=== PATIENT | male | born 1940 | race Caucasian/White ===

== ENCOUNTER 2020-05-04 10:05 | Inpatient (IN) | payer MEDICARE, MEDICAID, SELFPAY ==
--- NOTE | 2020-05-04 10:10 | XR_ITS ---
EXAMINATION: XR CHEST CLINICAL INFORMATION: Chest pain COMPARISON: Previous chest x-ray October 2017 TECHNIQUE: Frontal view of the chest was obtained. FINDINGS: The cardiac and mediastinal contours are normal. The lungs are clear. There is no pleural effusion or pneumothorax. There are degenerative changes of the spine. XR/XR chest 1V IMPRESSION: No evidence for acute disease in the chest.
--- NOTE | 2020-05-04 10:10 | ECG_ITS ---
Test Reason : STROKE Blood Pressure : / mmHG Vent. Rate : 069 BPM Atrial Rate : 069 BPM P-R Int : 214 ms QRS Dur : 122 ms QT Int : 422 ms P-R-T Axes : 074 -70 064 degrees QTc Int : 452 ms Sinus rhythm with 1st degree A-V block Right bundle branch block Left anterior fascicular block Bifascicular block Abnormal ECG When compared with ECG of 16-MAR-2018 00:14, Left anterior fascicular block is now Present Referred By: Camila Rowland Electronically Signed By:SARAVANAN VALENTE MD
--- NOTE | 2020-05-04 10:10 | CT_ITS ---
EXAMINATION: CT HEAD WITHOUT CONTRAST (STROKE PROTOCOL) CLINICAL INFORMATION: Stroke protocol. Short like symptoms. No deficit. COMPARISON: CT brain 06/28/2019 TECHNIQUE: Contiguous axial imaging was performed from the skull base to vertex without intravenous administration of contrast. This CT examination was performed using dose optimization techniques as appropriate, variously including the following: *Automated exposure control *Adjustment of mA and/or kV according to patient size (this includes techniques or standardized protocols for targeted exams where dose is matched to indication/reason for exam; i.e. extremities or head) *Use of iterative reconstruction technique DLP: 639 mGy-cm FINDINGS: There is no intracranial hemorrhage, hematoma, or extra-axial fluid collection. The lateral ventricles are enlarged with mild prominence of cortical sulci. There is no hydrocephalus, edema, or mass effect. The langley-white matter differentiation appears symmetric. There is no acute infarct or mass lesion. There or chronic lacunar infarcts in the right thalamus and right external capsule. There is extensive hypodensity in subcortical white matter of both cerebral hemispheres without mass effect. The calvarium appears intact. There is a small 5 mm sclerotic lesion along the left lateral orbit on axial image 15, stable since 06/28/2019, question bone island no additional lesions seen. There is no scalp soft tissue abnormality. There is no pneumocephalus or orbital emphysema. The visualized sinuses and middle ears and mastoid air cells show no significant mucosal thickening. There are no air-fluid levels. CT/CT head for stroke IMPRESSION: No acute intracranial process seen. 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 Mild cerebral volume loss with extensive chronic small vessel ischemic changes. This critical result was discussed with Dr. Rowland at 10:23 AM by phone in the ER. It was ascertained that the content and urgency of the report was understood at the time of direct communication.
--- NOTE | 2020-05-04 10:14 | ED_ITS ---
HPI - Neuro Symptoms/Deficit General Chief Complaint: Altered Mental Status Stated Complaint: ?stroke Time Seen by Provider: 05/04/20 10:10 History of Present Illness HPI Narrative: Patient is a 79-year-old male presented today family noted sudden onset of left-sided weakness at about 930 in the morning. [place] the speech was slurred. [place] that he had a difficulty walking. The weakness is mainly over the left side. On MSIR arrival patient's weakness has resolved. Speech has improved tremendously. Per family patient has slurred speech is essentially resolved. No history of the same before. No coughing or congestion or upper respiratory symptoms no diaphoresis. No chest pain. Patient is from home. Related Data Allergies Allergy/AdvReac Type Severity Reaction Status Date / Time No Known Allergies Allergy Unverified 02/23/20 15:07 Review of Systems Review of Systems: Constitutional: No Weight loss, No Fever, No Chills, No Night Sweats, No Fatigue, No Malaise ENT/Mouth: No Hearing loss, No Ear Pain, No Nasal Congestion, No Sinus Pain, No Hoarseness, No sore throat, No Rhinorrhea, No Swallowing Difficulty Eyes: No Eye Pain, No Swelling, No Redness, No Foreign Body, No Discharge, No Vision Changes Cardiovascular: No Chest Pain, No SOB, No Dyspnea on Exertion, No Orthopnea, No Edema, No Palpitations Respiratory: No Cough, No Sputum, No Wheezing, No Smoke Exposure, No Dyspnea Gastrointestinal: No Nausea, No Vomiting, No Diarrhea, No Constipation, No abdominal Pain, No Hematochezia, No Melena Genitourinary: no irregular bleeding, No Dysuria, No Urinary Frequency, No Hematuria, No Urinary Incontinence, No Urgency, No Flank Pain, No Urinary Flow Changes, No Hesitancy Musculoskeletal: No joint pain, No Myalgias, No Joint Swelling Skin: No Skin Lesions, No rash Neuro: Positive left-sided weakness, No Numbness, No Paresthesias, No Loss of Consciousness, No Dizziness, No Headache Psych: No Anxiety/Panic, No Depression, No SI/HI/AH/VH, No Social Issues, Heme/Lymph: No Bruising, No Bleeding,No Lymphadenopathy Endocrine: No Polyuria, No Polydipsia, No Temperature Intolerance [facility] Social History Social History Advance Directives: No Advance Directives Information Provided: Yes Physical Exam Vital Signs: Vital Signs: Last Vital Signs Temp 98.2 F 05/04/20 10:22 Pulse 67 05/04/20 10:22 Resp 14 05/04/20 10:22 Pulse Ox 98 05/04/20 10:22 Body Mass Index 22.8 Appearance: Alert. Oriented X3. No acute distress. Eyes: Pupils equal, round and reactive to light. ENT: Pharynx normal. Neck: Normal inspection. Neck supple. No lymph nodes noted. No crepitus CVS: Normal heart rate and rhythm. Pulses normal. Normal S1 and S2 Respiratory: No respiratory distress. Breath sounds normal. No Wheezing. No rales Abdomen: Soft and nontender. No rigidity. No distention. good BS x4 Skin: Skin warm and dry. Normal skin color. Normal skin turgor. Extremities: No lower extremity edema. Neurovascular intact to all extremities. No Lacerations. No Rash Neuro: Oriented X 3. No motor deficit. No sensory deficit. Moving all extermities. No slurred speech MDM - Neuro Symptoms/Deficit MDM Narrative Medical decision making narrative: CT the head was grossly negative. Electr olytes unremarkable. Patient's symptoms basically resolved. On repeat exam patient's NIH stroke scale remained at 0. Will admit for further evaluation of the left-sided weakness and potential change in speech question TIA. Patient's sugar was normal no evidence for hypoglycemia. Currently in stable condition awaiting admission. Case discussed with hospitalist team Medical Records Attestation: I reviewed the patient's medical records. Lab Data Attestation: I reviewed the patient's lab results. Result diagrams: 05/04/20 10:31 05/04/20 10:31 Labs: Lab Results 05/04/20 05/04/20 05/04/20 Range/Units 10:18 10:26 10:31 WBC 6.4 (4.8-10.8) X10*3/uL RBC 3.93 L (4.60-5.80) X10*6/uL Hgb 12.2 L (14.0-18.0) g/dl Hct 37.1 L (42-52) % MCV 94.4 (80-98) fL MCH 31.0 (27.0-33.0) pg MCHC 32.9 (31.0-36.0) g/dl RDW 12.1 (11.0-16.0) % Plt Count 179 (160-400) X10*3/uL MPV 10.2 (9.4-12.4) fL Immature Gran % (Auto) 0.2 (0.0-0.4) % Neut % (Auto) 56.2 (45-73) % Lymph % (Auto) 21.9 (20-40) % [place] % (Auto) 7.6 (2-11) % Eos % (Auto) 13.5 H (0-4) % Baso % (Auto) 0.6 (0-2) % Lymph # (Auto) 1.4 (1.2-4.9) X10*3/uL [place] # (Auto) 0.5 (0.1-1.2) X10*3/uL Eos # (Auto) 0.9 H (0.0-0.4) X10*3/uL Baso # (Auto) 0.0 (0.0-0.2) X10*3/uL Abs Immat Gran (auto) 0.01 (0.00-0.03) X10*3/uL Absolute Neuts (auto) 3.6 (2.0-8.3) X10*3/uL Absolute Nucleated RBC 0.000 (0.0-0.012) X10*3/uL Nucleated RBC % (auto) 0.0 (0.0-0.2) /100WBC PT (10.8-13.0) SEC Whole Blood PT 11.6 (11.1-13.5) sec INR (0.9-1.1) Whole Blood INR 1.0 (0.9-1.1) APTT (24.1-38.0) SEC Sodium (135-145) mmol/L Potassium (3.3-5.1) mmol/l Chloride (96-108) mmol/L Carbon Dioxide (22-29) mmol/L Anion Gap (12-20) BUN (9-16) mg/dL Creatinine (0.5-1.4) mg/dL Estim Creat Clear Calc Estimated GFR POC Glucose 207 H (60-115) mg/dL Random Glucose (60-115) mg/dL Calcium (8.4-10.2) mg/dL Total Creatine Kinase (38-174) U/L Troponin I High Sens (<3.5-35.0) ng/L 05/04/20 05/04/20 05/04/20 Range/Units 10:31 10:31 10:31 WBC (4.8-10.8) X10*3/uL RBC (4.60-5.80) X10*6/uL Hgb (14.0-18.0) g/dl Hct (42-52) % MCV (80-98) fL MCH (27.0-33.0) pg MCHC (31.0-36.0) g/dl RDW (11.0-16.0) % Plt Count (160-400) X10*3/uL MPV (9.4-12.4) fL Immature Gran % (Auto) (0.0-0.4) % Neut % (Auto) (45-73) % Lymph % (Auto) (20-40) % [place] % (Auto) (2-11) % Eos % (Auto) (0-4) % Baso % (Auto) (0-2) % Lymph # (Auto) (1.2-4.9) X10*3/uL [place] # (Auto) (0.1-1.2) X10*3/uL Eos # (Auto) (0.0-0.4) X10*3/uL Baso # (Auto) (0.0-0.2) X10*3/uL Abs Immat Gran (auto) (0.00-0.03) X10*3/uL Absolute Neuts (auto) (2.0-8.3) X10*3/uL Absolute Nucleated RBC (0.0-0.012) X10*3/uL Nucleated RBC % (auto) (0.0-0.2) /100WBC PT 13.6 H (10.8-13.0) SEC Whole Blood PT (11.1-13.5) sec INR 1.1 (0.9-1.1) Whole Blood INR (0.9-1.1) APTT 30.5 (24.1-38.0) SEC Sodium 140 (135-145) mmol/L Potassium 4.7 (3.3-5.1) mmol/l Chloride 104 (96-108) mmol/L Carbon Dioxide 26 (22-29) mmol/L Anion Gap 15 (12-20) BUN 27 H (9-16) mg/dL Creatinine 1.01 (0.5-1.4) mg/dL Estim Creat Clear Calc 53.5 Estimated GFR > 60 POC Glucose (60-115) mg/dL Random Glucose 228 H (60-115) mg/dL Calcium 8.7 (8.4-10.2) mg/dL Total Creatine Kinase 37 L (38-174) U/L Troponin I High Sens 5.5 (<3.5-35.0) ng/L ECG Data Interpretation: Sinus heart rate is 70 with a right bundle branch block that is old. There is no significant ST segment elevation noted. NIH Stroke Scale Internal: Initial- Upon Arrival Time: 10:17 Level of Consciousness: Alert Level of Consciousness Questions: Answers both questions correctly Level of Consciousness Commands: Performs both tasks correctly Best Gaze: Normal Visual: No visual loss Facial Palsy: Normal Motor Arm (Right): No drift Motor Arm (Left): No drift Motor Leg (Right): No drift Motor Leg (Left): No drift Limb Ataxia: Absent Sensory: Normal Best Language: No aphasia Dysarthia: Normal Extinction and Inattention: No abnormality Score: 0 Discharge Plan Discharge Clinical Impression: Brain TIA Patient Disposition: Admitted As Inpatient
[2020-05-04 10:22] VITALS: BP 172/78; PULSE 67; PULSE 72; RESP 14; TEMP 36.8; O2SAT 98; BMI 22.8
[2020-05-04 10:30] LABS: Prothrombin Time Whole Bld POC 11.6 sec (11.1-13.5)
[2020-05-04 10:35] LABS: Glucose, Whole Blood 207 mg/dL (60-115)
[2020-05-04 10:38] LABS: MANUAL DIFF FLAG NO
[2020-05-04 10:39] LABS: Basophils Percent Auto 0.6 % (0-2); Eosinophils Absolute Auto 0.9 X10*3/uL (0.0-0.4); Eosinophils Percent Auto 13.5 % (0-4); Hematocrit 37.1 % (42-52); Hemoglobin 12.2 g/dl (14.0-18.0); Imm Gran Abs Auto 0.01 X10*3/uL (0.00-0.03); Imm Gran Pct Auto 0.2 % (0.0-0.4); Lymphocytes Absolute Auto 1.4 X10*3/uL (1.2-4.9); Lymphocytes Percent Auto 21.9 % (20-40); Mean Corpuscular HGB Conc 32.9 g/dl (31.0-36.0); Mean Corpuscular Volume 94.4 fL (80-98); Mean Platelet Volume 10.2 fL (9.4-12.4); Monocytes Absolute Auto 0.5 X10*3/uL (0.1-1.2); Monocytes Percent Auto 7.6 % (2-11); Neutrophils Absolute Auto 3.6 X10*3/uL (2.0-8.3); Neutrophils Percent Auto 56.2 % (45-73); Platelet Count 179 X10*3/uL (160-400); Red Blood Count 3.93 X10*6/uL (4.60-5.80); Red Cell Distribution Width 12.1 % (11.0-16.0); White Blood Count 6.4 X10*3/uL (4.8-10.8)
[2020-05-04 10:46] LABS: INTERNATIONAL NORM RATIO 1.1 (0.9-1.1); Prothrombin Time 13.6 SEC (10.8-13.0)
[2020-05-04 10:49] LABS: Partial Thromboplastin Time 30.5 SEC (24.1-38.0)
--- NOTE | 2020-05-04 11:03 | PC.NURSE ---
PT DAUGHTER IN WAITING ROOM UP DATE GIVEN (DEON [phone]
[2020-05-04 11:10] LABS: Anion Gap 15 (12-20); Blood Urea Nitrogen 27 mg/dL (9-16); Calcium 8.7 mg/dL (8.4-10.2); Carbon Dioxide 26 mmol/L (22-29); Chloride 104 mmol/L (96-108); Creatinine Clr Calc Pharmacy 53.5; Estimated Glomerular Filt Rate > 60; Glucose Random 228 mg/dL (60-115); Potassium 4.7 mmol/l (3.3-5.1); Sodium 140 mmol/L (135-145)
[2020-05-04 11:12] LABS: Troponin-I High Sensitivity 5.5 ng/L (<3.5-35.0)
[2020-05-04 11:23] LABS: Stroke Lab Use COMPLETE
[2020-05-04 12:00] VITALS: BP 160/73; PULSE 63; RESP 12; TEMP 36.1; O2SAT 98
[2020-05-04 12:19] LABS: COVID-19 Test Negative (Negative); IDNOW Serial# 9DD0AD1C
--- NOTE | 2020-05-04 12:22 | P.HPHOSP_ITS ---
History of Present Illness Date of Service: 05/04/20 Chief Complaint: slurred speech, left-sided weakness this is an 79-year-old [place]-speaking male was brought to the emergency department with slurred speech. He reportedly had onset of slurred speech and left-sided weakness around 930 this morning. By the time EMS arrived to his home his symptoms had improved. On arrival to the emergency department his symptoms seem to have resolved. Brain CT showed old lacunar infarct and extensive chronic small-vessel ischemic changes. His lab work was unremarkable. Decision was made to admit him to the hospital for further management with working diagnosis of TIA. Review of Systems Review of Systems: Yes all other systems are reviewed and are negative Constitutional: Constitutional: Denies chills and Denies fever(s) Cardiovascular: Cardiovascular: Denies chest pain Respiratory: Respiratory: Denies cough Gastrointestinal: Gastrointestinal: Denies abdominal pain [facility] Medical History (Updated 05/04/20 @ 12:58 by BREANNE Wild) BPH (benign prostatic hyperplasia) Diabetes Glaucoma HLD (hyperlipidemia) HTN (hypertension) Intracranial hemorrhage Stroke Functional capacity: uses cane/walker Pertinent family history: DM, HTN Social History (Updated 05/04/20 @ 12:59 by BREANNE Wild) Household Members: Spouse Alcohol intake: never Smoking Status: Never smoker Use of substances other than those prescribed or required for medical reasons: No Advance Directives: No Advance Directives Information Provided: Yes Meds Allergies Allergy/AdvReac Type Severity Reaction Status Date / Time No Known Allergies Allergy Unverified 02/23/20 15:07 Home Medications Medication Instructions Recorded Confirmed Type amlodipine 5 mg PO DAILY 05/04/20 05/04/20 History atorvastatin 40 mg PO DAILY 05/04/20 05/04/20 History brimonidine-timolol [Combigan] 1 drp OPHTHALMIC (EYE) BID 05/04/20 05/04/20 History clopidogrel 75 mg PO DAILY 05/04/20 05/04/20 History dorzolamide 1 drp OPHTHALMIC (EYE) TID 05/04/20 05/04/20 History finasteride 5 mg PO DAILY 05/04/20 05/04/20 History insulin glargine [Lantus U-100 8 unit SUBCUT QAM 05/04/20 05/04/20 History Insulin] insulin glargine [Lantus U-100 11 unit SUBCUT BEDTIME 05/04/20 05/04/20 History Insulin] insulin lispro [Humalog U-100 See Protocol SUBCUT QIDACHS 05/04/20 05/04/20 Hi story Insulin] lisinopril 1 tab PO DAILY 05/04/20 05/04/20 History oxybutynin chloride 1 tab PO DAILY 05/04/20 05/04/20 History sertraline 1 tab PO DAILY 05/04/20 05/04/20 History tamsulosin 1 cap PO BEDTIME 05/04/20 05/04/20 History Physical Exam Vital Signs and Narrative: Vital Signs: Last Vital Signs Temp 98.2 F 05/04/20 10:22 Pulse 67 05/04/20 10:22 Resp 14 05/04/20 10:22 Pulse Ox 98 05/04/20 10:22 Body Mass Index 22.8 Const: Nutritional Appearance: well nourished Orientation/consciousness: patient oriented x3 HENMT: Head: Yes normocephalic and Yes atraumatic Eyes: Sclerae: sclerae normal Chest: Chest palpation & inspection: normal inspection of the chest Resp: Effort & Inspection: normal respiratory effort and no respiratory distress Auscultation: clear to auscultation bilaterally Cardio: Rate: regular rate Rhythm: regular rhythm GI: Palpation (GI): Soft to palpation and nontender Skin: General skin exam: no rashes or lesions noted Neuro: General: patient oriented x3 Cranial nerves: Yes CN's II-XII intact bilaterally, Yes Bilaterally intact EOM present and Yes Midline tongue present Motor exam (neuro): 5/5 motor strength present throughout and Pronator motor function not present Extrem: General: Yes normal to inspection Results Labs CBC and Chem 7: 05/04/20 10:31 05/04/20 10:31 Labs: Laboratory Results - last 24 hr 05/04/20 05/04/20 05/04/20 10:18 10:26 10:31 MCV 94.4 MCH 31.0 MCHC 32.9 RDW 12.1 Plt Count 179 MPV 10.2 Immature Gran % (Auto) 0.2 Neut % (Auto) 56.2 Lymph % (Auto) 21.9 [place] % (Auto) 7.6 Eos % (Auto) 13.5 H Baso % (Auto) 0.6 Lymph # (Auto) 1.4 [place] # (Auto) 0.5 Eos # (Auto) 0.9 H Baso # (Auto) 0.0 Abs Immat Gran (auto) 0.01 Absolute Neuts (auto) 3.6 Absolute Nucleated RBC 0.000 Nucleated RBC % (auto) 0.0 PT Whole Blood PT 11.6 INR Whole Blood INR 1.0 APTT Anion Gap Estim Creat Clear Calc Estimated GFR POC Glucose 207 H Random Glucose Calcium Total Creatine Kinase Troponin I High Sens COVID-19 (PRESTON) COVID-19 Clin Com 05/04/20 05/04/20 05/04/20 10:31 10:31 10:31 MCV MCH MCHC RDW Plt Count MPV Immature Gran % (Auto) Neut % (Auto) Lymph % (Auto) [place] % (Auto) Eos % (Auto) Baso % (Auto) Lymph # (Auto) [place] # (Auto) Eos # (Auto) Baso # (Auto) Abs Immat Gran (auto) Absolute Neuts (auto) Absolute Nucleated RBC Nucleated RBC % (auto) PT 13.6 H Whole Blood PT INR 1.1 Whole Blood INR APTT 30.5 Anion Gap 15 Estim Creat Clear Calc 53.5 Estimated GFR > 60 POC Glucose Random Glucose 228 H Calcium 8.7 Total Creatine Kinase 37 L Troponin I High Sens 5.5 COVID-19 (PRESTON) COVID-19 Clin Com 05/04/20 11:56 MCV MCH MCHC RDW Plt Count MPV Immature Gran % (Auto) Neut % (Auto) Lymph % (Auto) [place] % (Auto) Eos % (Auto) Baso % (Auto) Lymph # (Auto) [place] # (Auto) Eos # (Auto) Baso # (Auto) Abs Immat Gran (auto) Absolute Neuts (auto) Absolute Nucleated RBC Nucleated RBC % (auto) PT Whole Blood PT INR Whole Blood INR APTT Anion Gap Estim Creat Clear Calc Estimated GFR POC Glucose Random Glucose Calcium Total Creatine Kinase Troponin I High Sens COVID-19 (PRESTON) Negative COVID-19 Clin Com See Note Imaging Radiologist's Impressions: Impressions Chest X-Ray 05/04/20 10:10 IMPRESSION: No evidence for acute disease in the chest. Head CT 05/04/20 10:10 IMPRESSION: No acute intracranial process seen. 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 Mild cerebral volume loss with extensive chronic small vessel ischemic changes. This critical result was discussed with Dr. Rowland at 10:23 AM by phone in the ER. It was ascertained that the content and urgency of the report was understood at the time of direct communication. Assessment and Plan (1) Brain TIA: Status: Acute This is an 79-year-old male with a history of diabetes, hypertension, dyslipidemia, stroke who was brought to the emergency department after an episode of slurred speech and left-sided weakness TIA symptoms have resolved CT scan with only old changes Hold BP meds until cva ruled out Continue Lipitor, plavix Tele monitoriing, neuro checks Neurology consult Brain MRI PT, OT eval diabetes continue home dose of Lantus ADA diet, SSI, POC hypertension hold Norvasc, lisinopril BPH continue Flomax, oxybutynin mood continue sertraline DVT prophylaxis-Lovenox Code status -full code This case was discussed with Dr. Crawford
--- NOTE | 2020-05-04 12:25 | PM.EVENT ---
Event Note Date of Service: 05/04/20 Event Note: Patient seen and examined independently and was present during gonsales portion of E/M service. Agree with midlevel's history, physical, assessment, and plan. 79-year-old male presented with slurred speech and left-sided weakness rule out stroke /TIA MRI neuro eval
--- NOTE | 2020-05-04 13:06 | PC.NURSE ---
waiting on covid result, and bed assignment. pt has been seen by hospitalist
--- NOTE | 2020-05-04 13:08 | PC.NURSE ---
called [facility] to give report rn busy at this time will call back
--- NOTE | 2020-05-04 13:28 | PC.NURSE ---
report given to lou vieira
--- NOTE | 2020-05-04 13:39 | MR_ITS ---
EXAMINATION: MR BRAIN WITHOUT CONTRAST CLINICAL INFORMATION: Slurred speech. Left-sided weakness. COMPARISON: Head CT performed earlier today. Brain MRI 03/21/2016. TECHNIQUE: Multiplanar, multisequence imaging of the brain was performed without intravenous contrast. FINDINGS: A small acute lacunar infarct is seen in the left thalamus on series 4 image . There is no territorial infarction, hemorrhage, mass, or extra-axial fluid collection. Chronic lacunar infarcts are seen within the right basal ganglia and bilateral deep cerebral white matter. Moderate patchy foci of T2 hyperintensity are seen in the cerebral white matter and feng compatible chronic microangiopathy. There is mild diffuse brain parenchymal volume loss with commensurate prominence of the ventricles and sulci. There are bilateral lens replacements. A right-sided glaucoma drainage device is noted. Mild paranasal sinus mucosal thickening is noted. The mastoid air cells are clear. MR/MR head/brain wo con IMPRESSION: Small focus of acute lacunar infarction in the left thalamus. Chronic lacunar infarcts seen in the right basal ganglia and bilateral deep cerebral white matter. Background changes of chronic microangiopathy and brain parenchymal volume loss.
--- NOTE | 2020-05-04 14:40 | PC.NURSE ---
pt to [place] [facility] [place]
[2020-05-04 15:48] VITALS: BP 175/79; PULSE 71; RESP 17; TEMP 36.1; O2SAT 98
[2020-05-04 16:23] LABS: Glucose, Whole Blood 231 mg/dL (60-115)
[2020-05-04] MEDS: Dorzolamide HCl 2 % Ophth Sol 10 ML DRPBTL 1 DROP EYE-BOTH ×2 (16:37→21:20)
[2020-05-04] MEDS: Insulin Lispro 100 UNIT/ML 3 ML VIAL SUBCUT (16:37)
[2020-05-04] MEDS: Enoxaparin Sodium 40 MG/0.4 ML SYRINGE SUBCUT (16:37)
[2020-05-04] MEDS: 0.9 % Sodium Chloride Flush 3 ML SYRINGE IVFLUSH (16:38)
--- NOTE | 2020-05-04 16:42 | MHC.STROKE ---
1001PRE-NOTIFIED BY [facility], CALLED BY ED. STROKE PROTOCOL ACTIVATED, DIRECT TO CT. ONSET OF SYMPTOMS REPORTED TO BE AROUND 0930. SOME SLIGHT LEFT SIDED WEAKNESS, GAIT AND BALANCE WERE OFF AND SLIGHT SLURRED SPEECH. DR RICHARDSON REPORTED NIHSS = 0 AND SYMPTOMS WERE IMPROVING. 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 EXCLUDED FROM TPA TODAY DUE TO NIHSS = 0. HE PASSED SWALLOW SCREEN IN ED PRIOR TO PO, RECOMMENDING ANTIPLATELET, LIPID PANEL, CAROTID US, ECHOCARDIOGRAM, NEUROLOGY CONSULT PENDING, PLEASE REFER TO HIS RECOMMENDATIONS. MRI + FOR ACUTE LEFT THALAMIC ISCHEMIC INFARCT. REHAB ORDERED, VTE PROPHLAXIS IS ORDERED. PLEASE INITIATE STROKE EDUCATION.
[2020-05-04 19:35] VITALS: BP 180/79; PULSE 67; RESP 17; TEMP 36.4; O2SAT 97
[2020-05-04 20:59] LABS: Glucose, Whole Blood 240 mg/dL (60-115)
[2020-05-04] MEDS: Insulin Glargine,Hum.rec.anlog 100 UNIT/ML 10 ML VIAL 11 UNIT SUBCUT (21:20)
[2020-05-04] MEDS: timoloL maleate 0.5 % Oph Sol 5 ML DRBTL 1 DROP EYE-BOTH (21:20)
[2020-05-04] MEDS: Tamsulosin HCL 0.4 MG CAPSULE PO (21:20)
[2020-05-04] MEDS: Brimonidine Tartrate 0.2% Oph 5 ML BOTTLE 1 DROP EYE-BOTH (21:20)
[2020-05-04 23:29] VITALS: BP 155/72; PULSE 66; RESP 19; TEMP 36.7; O2SAT 97
[2020-05-05] MEDS: 0.9 % Sodium Chloride Flush 3 ML SYRINGE IVFLUSH ×4 (00:03→23:43)
[2020-05-05 04:00] VITALS: BP 146/73; PULSE 66; RESP 18; TEMP 36.8; O2SAT 96
[2020-05-05 07:21] LABS: Cholesterol 138 mg/dL; HDL Cholesterol 51 mg/dL; LDL Cholesterol Calculated 74 mg/dl; Triglycerides 66 mg/dL
[2020-05-05 07:43] VITALS: BP 172/83; PULSE 71; RESP 18; TEMP 36.3; O2SAT 96
[2020-05-05 08:01] LABS: Glucose, Whole Blood 126 mg/dL (60-115)
[2020-05-05] MEDS: Finasteride 5 MG TABLET PO (08:16)
[2020-05-05] MEDS: Atorvastatin Calcium 40 MG TABLET PO (08:17)
[2020-05-05] MEDS: Clopidogrel Bisulfate 75 MG TABLET PO (08:17)
[2020-05-05] MEDS: Sertraline HCL 50 MG TABLET PO (08:17)
[2020-05-05] MEDS: Brimonidine Tartrate 0.2% Oph 5 ML BOTTLE 1 DROP EYE-BOTH ×2 (08:18→21:31)
[2020-05-05] MEDS: timoloL maleate 0.5 % Oph Sol 5 ML DRBTL 1 DROP EYE-BOTH ×2 (08:18→21:31)
--- NOTE | 2020-05-05 10:11 | HO.PM.IMPN ---
Subjective Subjective Date of Service: 05/05/20 Interval History: unchanged Cardiovascular Cardiovascular: Reports no additional cardiovascular complaints Respiratory Respiratory: Reports no additional respiratory complaints Physical Exam Vital Signs: Vital Signs: Last Vital Signs Temp 97.3 F 05/05/20 07:43 Pulse 71 05/05/20 07:43 Resp 18 05/05/20 07:43 BP 172/83 H 05/05/20 07:43 Pulse Ox 96 05/05/20 07:43 Body Mass Index 22.8 General: AO X 3, no acute distress Resp: CTA bilateral CVS: S1,S2,RRR GI: soft, non tender, non distended Psych: appropriate affect Objective Data Current Medications Generic Name Dose Route Start Last Admin Trade Name Freq PRN Reason Stop Dose Admin Acetaminophen 650 mg 05/04/20 13:39 Acetaminophen 325 Mg Tablet PO Q6H PRN Pain, Mild (Pain Scale 1-3) Atorvastatin Calcium 40 mg 05/05/20 09:00 05/05/20 08:17 Atorvastatin Calcium 40 Mg Tablet PO 40 mg DAILY MYRA Administration Brimonidine Tartrate 1 drop 05/04/20 21:00 05/05/20 08:18 Brimonidine Tartrate 0.2% Oph 5 Ml Bottle EYE-BOTH 1 drop BID MYRA Administration Clopidogrel Bisulfate 75 mg 05/05/20 09:00 05/05/20 08:17 Clopidogrel Bisulfate 75 Mg Tablet PO 75 mg DAILY MYRA Administration Docusate Sodium 100 mg 05/04/20 13:39 Docusate Sodium 100 Mg Capsule PO DAILY PRN Constipation Dorzolamide HCl 1 drop 05/04/20 15:00 05/04/20 21:20 Dorzolamide Hcl 2 % Ophth Bita 10 Ml Drpbtl EYE-BOTH 1 drop TID MYRA Administration Enoxaparin Sodium 40 mg 05/04/20 16:00 05/04/20 16:37 Enoxaparin Sodium 40 Mg/0.4 Ml Syringe SUBCUT 40 mg Q24H MYRA Administration Finasteride 5 mg 05/05/20 09:00 05/05/20 08:16 Finasteride 5 Mg Tablet PO 5 mg DAILY MYRA Administration Insulin Glargine 8 unit 05/05/20 09:00 Insulin Glargine,Hum.Rec.Anlog 100 Unit/Ml 10 Ml Vial SUBCUT DAILY [facility] Insulin Glargine 11 unit 05/04/20 21:00 05/04/20 21:20 Insulin Glargine,Hum.Rec.Anlog 100 Unit/Ml 10 Ml Vial SUBCUT 11 unit BEDTIME MYRA Administration Insulin Human Lispro 0 unit 05/04/20 16:30 05/05/20 08:18 Insulin Lispro 100 Unit/Ml 3 Ml Vial SUBCUT Not Given QIDACHS [facility] Protocol Ondansetron HCl 4 mg 05/04/20 13:39 Ondansetron Hcl 4 Mg/2 Ml Vial IVPUSH Q8H PRN Nausea and Vomiting Oxybutynin Chloride 5 mg 05/05/20 09:00 05/05/20 08:17 Oxybutynin Chloride Er 5 Mg Tab.Er.24 PO 5 mg DAILY MYRA Administration Pharmacy Consult 1 each 05/04/20 11:25 Consult Rx Perform Med Rec MISCELLANE ONCE PRN Consult order Sertraline HCl 50 mg 05/05/20 09:00 05/05/20 08:17 Sertraline Hcl 50 Mg Tablet PO 50 mg DAILY MYRA Administration Sodium Chloride 3 ml 05/04/20 16:00 05/05/20 08:18 0.9 % Sodium Chloride Flush 3 Ml Syringe IVFLUSH 3 ml QSHIFT MYRA Administration Tamsulosin HCl 0.4 mg 05/04/20 21:00 05/04/20 21:20 Tamsulosin Hcl 0.4 Mg Capsule PO 0.4 mg BEDTIME MYRA Administration Timolol Maleate 1 drop 05/04/20 21:00 05/05/20 08:18 Timolol Maleate 0.5 % Oph Bita 5 Ml Drbtl EYE-BOTH 1 drop BID MYRA Administration Labs CBC & Chem 7: 05/04/20 10:31 05/04/20 10:31 Assessment and Plan (1) Brain TIA: Status: Acute Assessment and Plan: This is an 79-year-old male with a history of diabetes, hypertension, dyslipidemia, stroke who was brought to the emergency department after an episode of slurred speech and left-sided weakness acute CVA Continue Lipitor, plavix Tele monitoriing, neuro checks Neurology consult PT, OT eval diabetes continue home dose of Lantus ADA diet, SSI, POC hypertension hold Norvasc, lisinopril BPH continue Flomax, oxybutynin mood continue sertraline
--- NOTE | 2020-05-05 10:50 | PM.NEUROCN ---
History of Present Illness Data of Consult Service Date: 05/05/20 Primary Care Provider: Unknown Physician 79 years old man who came to emergency room with difficulty speaking and left-sided weakness. When he arrived in emergency room most of his symptoms were resolved. ER physician talked to me and it was decided not to treat him with acute stroke medicine like tPA because of minimal symptoms with the and a stroke scale of about 1 causing possible slowness of speech. He was admitted for further evaluation. There was no sign of trauma dizziness of cold or flu-like illness fever or chills or headache. Review of Systems Review of Systems: As reported in HPI. FORMERLY [facility], [facility] Past Medical History Medical History (Updated 05/04/20 @ 12:58 by BREANNE Wild) BPH (benign prostatic hyperplasia) Diabetes Glaucoma HLD (hyperlipidemia) HTN (hypertension) Intracranial hemorrhage Stroke Functional capacity: uses cane/walker Social History Social History (Updated 05/04/20 @ 12:59 by BREANNE Wild) Household Members: Spouse Housing: House Do you presently have visiting nurse or other home services: No Alcohol intake: former Smoking Status: Former smoker Use of substances other than those prescribed or required for medical reasons: No Currently Displaying Signs/Symptoms of Drug Intoxication Withdrawal: No Have you been hit, kicked, punched, or otherwise hurt by someone within the past year? If so, by whom?: No Do you feel safe in your current relationship?: Yes Is there a partner from a previous relationship who is making you feel unsafe now?: No Are you made to feel afraid or neglected: No Advance Directives: No Advance Directives Information Provided: Yes Do you have thoughts of harming others: None Do you have a plan to hurt others: No Plan Recently lost weight without trying: No Meds Allergies Allergy/AdvReac Type Severity Reaction Status Date / Time No Known Allergies Allergy Unverified 02/23/20 15:07 Home Medications Medication Instructions Recorded Confirmed Type amlodipine 5 mg PO DAILY 05/04/20 05/04/20 History atorvastatin 40 mg PO DAILY 05/04/20 05/04/20 History brimonidine-timolol [Combigan] 1 drp OPHTHALMIC (EYE) BID 05/04/20 05/04/20 History clopidogrel 75 mg PO DAILY 05/04/20 05/04/20 History dorzolamide 1 drp OPHTHALMIC (EYE) TID 05/04/20 05/04/20 History finasteride 5 mg PO DAILY 05/04/20 05/04/20 History insulin glargine [Lantus U-100 8 unit SUBCUT QAM 05/04/20 05/04/20 History Insulin] insulin glargine [Lantus U-100 11 unit SUBCUT BEDTIME 05/04/20 05/04/20 History Insulin] insulin lispro [Humalog U-100 See Protocol SUBCUT QIDACHS 05/04/20 05/04/20 History Insulin] lisinopril 1 tab PO DAILY 05/04/20 05/04/20 History oxybutynin chloride 1 tab PO DAILY 05/04/20 05/04/20 History sertraline 1 tab PO DAILY 05/04/20 05/04/20 History tamsulosin 1 cap PO BEDTIME 05/04/20 05/04/20 History Physical Exam Vital Signs: Vital Signs: Last Vital Signs Temp 97.3 F 05/05/20 07:43 Pulse 71 05/05/20 07:43 Resp 18 05/05/20 07:43 BP 172/83 H 05/05/20 07:43 Pulse Ox 96 05/05/20 07:43 Body Mass Index 22.8 He was alert and awake speaking in an accident. Speech was slightly dysphasic. He was able to follow commands and answer questions. Pupils were equal reactive to light. Face was symmetrical. Visual alvarado are full. There was no obvious arm or leg weakness but he was hesitant to use his left arm more than right arm. Plantars were equivocal. Deep tendon reflexes were absent. There was no special neglect. Results Labs CBC & Chem 7: 05/04/20 10:31 05/04/20 10:31 Labs: BMP 05/04/20 10:31 Sodium 140 Potassium 4.7 Chloride 104 Carbon Dioxide 26 BUN 27 H Creatinine 1.01 Calcium 8.7 Cardiac Enzymes 05/04/20 Range/Units 10:31 Total Creatine Kinase 37 L (38-174) U/L Noncontrast head CT did not reveal any obvious acute abnormality. Moderate atrophy and moderate amount of chronic microvascular ischemic disease was noted. MRI of brain without contrast revealed similar finding is CT. There was no sign of acute lesion. 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 His present presentation might have been another ischemic lesion but did not reveal any obvious acute stroke. Mainstay of management is reassurance education control of vascular risk factors. Anti-platelet agent and statins are also recommended.
[2020-05-05 11:44] LABS: Glucose, Whole Blood 201 mg/dL (60-115)
[2020-05-05 12:00] VITALS: BP 183/82; PULSE 71; RESP 18; TEMP 36.4; O2SAT 96
[2020-05-05] MEDS: Insulin Glargine,Hum.rec.anlog 100 UNIT/ML 10 ML VIAL 8 UNIT SUBCUT (12:11)
[2020-05-05] MEDS: Dorzolamide HCl 2 % Ophth Sol 10 ML DRPBTL 1 DROP EYE-BOTH ×3 (12:11→21:31)
[2020-05-05] MEDS: Insulin Lispro 100 UNIT/ML 3 ML VIAL SUBCUT (12:12)
[2020-05-05] MEDS: ondansetron HCL 4 MG/2 ML VIAL IVPUSH (13:29)
[2020-05-05 15:37] VITALS: BP 171/81; PULSE 66; RESP 18; TEMP 36.2; O2SAT 99
[2020-05-05 16:19] LABS: Glucose, Whole Blood 134 mg/dL (60-115)
[2020-05-05] MEDS: Enoxaparin Sodium 40 MG/0.4 ML SYRINGE SUBCUT (17:45)
[2020-05-05 19:58] VITALS: BP 165/74; PULSE 72; RESP 16; TEMP 36.6; O2SAT 96
[2020-05-05 21:17] LABS: Glucose, Whole Blood 233 mg/dL (60-115)
[2020-05-05] MEDS: Tamsulosin HCL 0.4 MG CAPSULE PO (21:28)
[2020-05-05] MEDS: Insulin Glargine,Hum.rec.anlog 100 UNIT/ML 10 ML VIAL 11 UNIT SUBCUT (21:30)
[2020-05-05 23:02] LABS: Glucose Urine UA 250 MG/DL (NEG); Leukocyte Esterase Urine NEG (NEG); Nitrite Urine NEG (NEG); Specific Gravity - Urine 1.015 (1.005-1.025); Urine Blood NEG (NEG); Urine Ketones NEG (NEG); Urine Protein NEG (NEG-TRACE)
[2020-05-05 23:03] LABS: Appearance Urine CLEAR; Color Urine YELLOW
[2020-05-05] MEDS: Acetaminophen 325 MG TABLET 650 MG PO (23:27)
[2020-05-05 23:39] LABS: Glucose, Whole Blood 265 mg/dL (60-115)
[2020-05-05] MEDS: LORazepam 2 MG/ML VIAL 1 MG IVPUSH (23:43)
--- NOTE | 2020-05-06 | CT_ITS ---
EXAMINATION: CT HEAD WITHOUT CONTRAST CLINICAL INFORMATION: Altered mental status. Patient with acute lacunar infarct of the left thalamus. Follow-up. COMPARISON: Head CT and head MRI from 05/04/2020. TECHNIQUE: Contiguous axial imaging was performed from the skull base to vertex without intravenous administration of contrast. This CT examination was performed using dose optimization techniques as appropriate, variously including the following: *Automated exposure control *Adjustment of mA and/or kV according to patient size (this includes techniques or standardized protocols for targeted exams where dose is matched to indication/reason for exam; i.e. extremities or head) *Use of iterative reconstruction technique DLP: 653 mGy-cm FINDINGS: There is atherosclerotic calcification of cavernous carotid arteries. No intracranial hemorrhage, extra-axial fluid collection, focal mass effect or midline shift. Chronic small vessel ischemic changes of the supratentorial white matter. The small lacunar infarct of the left thalamus observed on the brain MRI 05/04/2020 is observed on this current follow-up head CT. Old lacunar infarct of the right thalamus is noted. The langley-white matter differentiation is maintained. No evidence of an acute major vascular territory infarction. No acute abnormalities in the posterior fossa. The cerebellar tonsils are normal position. The calvarium is intact. The mastoid air cells and middle ear cavities are well aerated. Mucosal thickening/mucous retention cysts of the right maxillary sinus. No air-fluid levels within paranasal sinuses. Lenses are extracted from the globes of each orbit. CT/CT head/brain wo con IMPRESSION: * Chronic cerebral atrophy and chronic small vessel ischemic changes of the supratentorial white matter. * Old lacunar infarct of the right thalamus and recent lacunar infarct of the left thalamus. * No intracranial hemorrhage or other acute intracranial pathology compared to 05/04/2020.
[2020-05-06] MEDS: Atorvastatin Calcium 40 MG TABLET PO (09:02)
[2020-05-06] MEDS: Finasteride 5 MG TABLET PO (09:02)
[2020-05-06] MEDS: 0.9 % Sodium Chloride Flush 3 ML SYRINGE IVFLUSH (09:03)
[2020-05-06] MEDS: Sertraline HCL 50 MG TABLET PO (09:03)
[2020-05-06] MEDS: Clopidogrel Bisulfate 75 MG TABLET PO (09:03)
[2020-05-06] MEDS: Brimonidine Tartrate 0.2% Oph 5 ML BOTTLE 1 DROP EYE-BOTH (09:15)
[2020-05-06] MEDS: Dorzolamide HCl 2 % Ophth Sol 10 ML DRPBTL 1 DROP EYE-BOTH (09:15)
[2020-05-06] MEDS: Insulin Lispro 100 UNIT/ML 3 ML VIAL SUBCUT ×2 (09:15→15:37)
[2020-05-06] MEDS: timoloL maleate 0.5 % Oph Sol 5 ML DRBTL 1 DROP EYE-BOTH (09:15)
--- NOTE | 2020-05-06 10:44 | PM.DS ---
DS: Providers Provider Date of admission: 05/05/20 10:57 Primary care physician: Unknown Physician Consults: 05/04/20 13:39 Consult to Neurology Routine Consulting Provider: [facility] Reason for consultation: slurred speech, left side weakness DS: Diagnosis Discharge Diagnosis (1) Brain TIA: Status: Deleted (2) HTN (hypertension): Status: Inactive (3) Stroke: Status: Inactive (4) Diabetes: Status: Inactive DS: Medications Discharge Medications Home Medications: Home Medications Medication Instructions Recorded Confirmed Combigan 1 drp OPHTHALMIC (EYE) BID 05/04/20 05/04/20 Lantus U-100 Insulin 8 unit SUBCUT QAM 05/04/20 05/04/20 Lantus U-100 Insulin 11 unit SUBCUT BEDTIME 05/04/20 05/04/20 amlodipine 5 mg PO DAILY 05/04/20 05/04/20 atorvastatin 40 mg PO DAILY 05/04/20 05/04/20 clopidogrel 75 mg PO DAILY 05/04/20 05/04/20 dorzolamide 1 drp OPHTHALMIC (EYE) TID 05/04/20 05/04/20 finasteride 5 mg PO DAILY 05/04/20 05/04/20 insulin lispro [Humalog U-100 See Protocol SUBCUT QIDACHS 05/04/20 05/04/20 Insulin] lisinopril 1 tab PO DAILY 05/04/20 05/04/20 oxybutynin chloride 1 tab PO DAILY 05/04/20 05/04/20 sertraline 1 tab PO DAILY 05/04/20 05/04/20 tamsulosin 1 cap PO BEDTIME 05/04/20 05/04/20 DS: Summary Hospital Course Hospital Course: Patient was admitted for acute CVA. He was seen by Neurology who recommended continue antiplatelet and statin therapy. Etiology of stroke is likely related to hypertension. Patient will continue on his amlodipine and lisinopril at home with focus on good blood pressure control. Patient was seen by Physical therapy who did recommend short-term rehab at assisted facility. However, family would like patient to do physical therapy at home. Patient's symptoms have mostly resolved and will be discharged home. Time Spent with Patient Time attestation: Total time spent providing and/or coordinating discharge services: Physical Exam Vital Signs: Vital Signs: Last Vital Signs Temp 97.8 F 05/05/20 19:58 Pulse 72 05/05/20 19:58 Resp 16 05/05/20 19:58 BP 165/74 H 05/05/20 19:58 Pulse Ox 96 05/05/20 19:58 Body Mass Index 22.8 General: AO X 3, no acute distress Resp: CTA bilateral CVS: S1,S2,RRR GI: soft, non tender, non distended Neuro: some slurred speech, mild left hemiparesis Psych: appropriate affect DS: Data Data Completed and Pending Labs on day of discharge: 05/04/20 10:[address] head for stroke Stat XR chest 1V Stat 05/04/20 10:18 Glucose, Whole Blood Routine 05/04/20 10:26 Prothrombin Time Whole Bld POC Routine ~PT, ~INR - Anti [facility]ag Clinic Routine 05/04/20 10:31 Basic Metabolic Panel Stat Complete Blood Count Auto Diff Stat Creatine Kinase Total Stat Partial Thromboplastin Time Stat Prothrombin Time INR Stat Stroke Lab Use Stat Troponin-I High Sensitivity Stat 05/04/20 11:56 COVID-19 ID NOW (Ryan) Stat 05/04/20 12:10 Transfer Order Routine 05/04/20 13:39 Pulse Oximetry Q4HR MR head/brain wo con Stat 05/04/20 16:20 Glucose, Whole Blood Routine 05/04/20 20:56 Glucose, Whole Blood Routine 05/04/20 21:00 brimonidine-timolol [Combigan] 1 drop EYE-BOTH BID 05/05/20 05:50 Lipid Panel Routine 05/05/20 07:41 Glucose, Whole Blood Routine 05/05/20 11:41 Glucose, Whole Blood Routine 05/05/20 16:12 Glucose, Whole Blood Routine 05/05/20 21:06 Glucose, Whole Blood Routine 05/05/20 22:54 UA CC w/rflx Micro + Cult Stat 05/05/20 23:29 Glucose, Whole Blood Routine 05/05/20 23:32 LORazepam [Ativan] 1 mg IVPUSH ONCE ONE Laboratory Last Values WBC 6.4 X10*3/uL (4.8-10.8) 05/04/20 10:31 RBC 3.93 X10*6/uL (4.60-5.80) L 05/04/20 10:31 Hgb 12.2 g/dl (14.0-18.0) L 05/04/20 10:31 Hct 37.1 % (42-52) L 05/04/20 10: MCV 94.4 fL (80-98) 05/04/20 10:31 MCH 31.0 pg (27.0-33.0) 05/04/20 10: MCHC 32.9 g/dl (31.0-36.0) 05/04/20 10:31 RDW 12.1 % (11.0-16.0) 05/04/20 10:31 Plt Count 179 X10*3/uL (160-400) 05/04/20 10: MPV 10.2 fL (9.4-12.4) 05/04/20 10: Immature Gran % (Auto) 0.2 % (0.0-0.4) 05/04/20 10: Neut % (Auto) 56.2 % (45-73) 05/04/20 10:31 Lymph % (Auto) 21.9 % (20-40) 05/04/20 10:31 [place] % (Auto) 7.6 % (2-11) 05/04/20 10:31 Eos % (Auto) 13.5 % (0-4) H 05/04/20 10:31 Baso % (Auto) 0.6 % (0-2) 05/04/20 10:31 Lymph # (Auto) 1.4 X10*3/uL (1.2-4.9) 05/04/20 10:31 [place] # (Auto) 0.5 X10*3/uL (0.1-1.2) 05/04/20 10:31 Eos # (Auto) 0.9 X10*3/uL (0.0-0.4) H 05/04/20 10:31 Baso # (Auto) 0.0 X10*3/uL (0.0-0.2) 05/04/20 10:31 Abs Immat Gran (auto) 0.01 X10*3/uL (0.00-0.03) 05/04/20 10:31 Absolute Neuts (auto) 3.6 X10*3/uL (2.0-8.3) 05/04/20 10:31 Absolute Nucleated RBC 0.000 X10*3/uL (0.0-0.012) 05/04/20 10:31 Nucleated RBC % (auto) 0.0 /100WBC (0.0-0.2) 05/04/20 10:31 PT 13.6 SEC (10.8-13.0) H 05/04/20 10:31 Whole Blood PT 11.6 sec (11.1-13.5) 05/04/20 10:26 INR 1.1 (0.9-1.1) 05/04/20 10:31 Whole Blood INR 1.0 (0.9-1.1) 05/04/20 10:26 APTT 30.5 SEC (24.1-38.0) 05/04/20 10:31 Sodium 140 mmol/L (135-145) 05/04/20 10:31 Potassium 4.7 mmol/l (3.3-5.1) 05/04/20 10:31 Chloride 104 mmol/L (96-108) 05/04/20 10:31 Carbon Dioxide 26 mmol/L (22-29) 05/04/20 10:31 Anion Gap 15 (12-20) 05/04/20 10:31 BUN 27 mg/dL (9-16) H 05/04/20 10:31 Creatinine 1.01 mg/dL (0.5-1.4) 05/04/20 10:31 Estim Creat Clear Calc 53.5 05/04/20 10:31 Estimated GFR > 60 05/04/20 10:31 POC Glucose 265 mg/dL (60-115) H 05/05/20 23:29 Random Glucose 228 mg/dL (60-115) H 05/04/20 10:31 Calcium 8.7 mg/dL (8.4-10.2) 05/04/20 10:31 Total Creatine Kinase 37 U/L (38-174) L 05/04/20 10:31 Troponin I High Sens 5.5 ng/L (<3.5-35.0) 05/04/20 10:31 Triglycerides 66 mg/dL 05/05/20 05:50 Cholesterol 138 mg/dL 05/05/20 05:50 LDL Cholesterol, Calc 74 mg/dl 05/05/20 05:50 HDL Cholesterol 51 mg/dL 05/05/20 05:50 Urine Color YELLOW 05/05/20 22:54 Urine Appearance CLEAR 05/05/20 22:54 Urine pH 7.0 (5.0-8.0) 05/05/20 22:54 Ur Specific [place] 1.015 (1.005-1.025) 05/05/20 22:54 Urine Protein NEG MG/DL (NEG-TRACE) 05/05/20 22:54 Urine Glucose (UA) 250 MG/DL (NEG) H 05/05/20 22:54 Urine Ketones NEG MG/DL (NEG) 05/05/20 22:54 Urine Blood NEG (NEG) 05/05/20 22:54 Urine Nitrite NEG (NEG) 05/05/20 22:54 Ur Leukocyte Esterase NEG (NEG) 05/05/20 22:54 COVID-19 (PRESTON) Negative (Negative) 05/04/20 11:56 COVID-19 Clin Com See Note 05/04/20 11:56 Discharge Plan Discharge Patient Disposition: Home Health Service Referrals: Physician,Unknown [Primary Care Provider] - Discharge Medications: Continued Lantus U-100 Insulin 100 unit/mL solution 8 unit subcut QAM RF: 0 Lantus U-100 Insulin 100 unit/mL solution 11 unit subcut BEDTIME RF: 0 tamsulosin 0.4 mg capsule 1 cap PO BEDTIME RF: 0 lisinopril 10 mg tablet 1 tab PO DAILY RF: 0 finasteride 5 mg tablet 5 mg PO DAILY RF: 0 atorvastatin 40 mg tablet 40 mg PO DAILY RF: 0 clopidogrel 75 mg tablet 75 mg PO DAILY RF: 0 amlodipine 5 mg tablet 5 mg PO DAILY RF: 0 insulin lispro [Humalog U-100 Insulin] 100 unit/mL solution See Protocol unit subcut QIDACHS RF: 0 oxybutynin chloride 5 mg tablet 1 tab PO DAILY RF: 0 sertraline 50 mg tablet 1 tab PO DAILY RF: 0 dorzolamide 2 % drops 1 drp ophthalmic (eye) TID RF: 0 Combigan 0.2-0.5 % drops 1 drp ophthalmic (eye) BID RF: 0 Discharge Orders: Discharge Order (Routine); Ordered 05/06/20 Ordered By: Adam Crawford Diet: advance to usual diet Activity on Discharge: As tolerated Visit Report Forms: Patient Portal Discharge page Care Plan Goals: recovery, prevent further strokes Health Concerns: cva Plan of Treatment: PT, antiplatelet and statin, bp control
[2020-05-06 10:50] LABS: Glucose, Whole Blood 296 mg/dL (60-115)
[2020-05-06 10:50] LABS: Glucose, Whole Blood 220 mg/dL (60-115)
--- NOTE | 2020-05-06 11:50 | W.MHC.F2F ---
Service Date Service Date: 05/06/20 Reasons for Services Homebound: Leaving the home is medically contraindicated at this time without the asist of a device and/or another person due th the listed conditions above and below. recent stroke requiring home pt Certification: Based on the above findings, I certify that this patient is confined to the home and needs intermittent assisted care, physical therapy and/or speech therapy, or continues to need occupational therapy. The patient is under my care, and I have initiated the establishment of the plan of care. The patient will be followed by a physician who will periodically review the plan of care.
--- NOTE | 2020-05-06 12:33 | MHC.CM.PN ---
CM spoke to pts daughter, Aby [phone] who reports the pt lives at home with his and typically only has a [employer] that comes in 3 hours in the morning Thursday thru Thursday to assist with personal and home care. She reports she is the pts HCP. Aby is aware the pt is bring cleared for DC today. Pts medicare rights were reviewed with her and she reports she wants him home. She reports she is concerned over a call she received yesterday saying that the pt was found in the hallway wandering. She reports the pt cannot walk on his own so she thinks he likely fell and the pt had a camera on him so she does not understand how he could have gotten to the white. Aby reported she would like to discuss her concerns with the lawn service supervisor. Email sent to [facility] nursing lawn service supervisor requesting she contact pts daughter. Pt will DC home today with resumption of [employer] services and new VNA. Shahla indicated they did not have a preference for nursing agencies. Referral sent to [facility] based on their availability. pt will need PT and SN pts daughter will pick him up at [place].
[2020-05-06 13:33] VITALS: BP 165/73; PULSE 64; O2SAT 98
[2020-05-06 13:37] LABS: Glucose, Whole Blood 266 mg/dL (60-115)
--- NOTE | 2020-05-06 16:55 | PC.NURSE ---
PT STILL DROWSY THIS AM BUT AROUSABLE FROM IV ATIVAN MEDICATION OVERNIGHT. OOB TO HAIR EATING BREAKFAST. DAUGHTER CALLED MULTIPLE TIMES FOR UPDATES AND INSIISTING HE BE DISCHARGED HOME BY 1230. HOSPITALIST MADE AWARE. EXPLAINED OPTIONS OF STR PER PT RECOMMENDATION VERSUS HOME PT. AND DAUGHTER CHOSE HOME PT. 1200 ASSESSMENT AND PLAN TO GET PT READY FOR DC PT FOUND TO BE MORE DROWSY REQUIRING STERNAL RUB TO AROUSE. CALLED DAUGHTER BACK AND HOSPITALIST IN TO SEE PT. EXPLAINED PT CAN NOT BE DISCHARGED AT THIS TIME UNTIL MORE ARROUSABLE. DAUGHTER INSISTING TO SEE PATIENT AND TAKE HIM HOME. CONCRETE SWIMMING POOL INSTALLER MADE AWARE. DAUGHTER ALLOWED TO SEE PT AND REMAIN AT BEDSIDE. REPEAT VITALS AND BLOOD GLUCOSE DONE. PT BACK TO BASELINE MENTALLY AFTER ABOUT AN HOUR. REPEAT BRAIN CT ORDERED AND DONE. RESULTS UNCHANGED. DAUGHTER UPDATED. DC REVIEWED. ORDERED FOR OUTPATIENT ECHO AND CAROTID U/LS ALSO ORDERED. PT BROUGHT DOWN VIA WHEELCHAIR WITH DAUGHTER.
== END 2020-05-06 16:30 | disposition home health service (06) | DRG 65 ==
LOC: HO.ED 11:19 → HO.IMC 12:45
PROVIDERS: Admitting Provider Internal Medicine; Emergency Provider Emergency Medicine Emergency Medical Services; Visit Provider Internal Medicine
DX: I63.89 Other cerebral infarction (principal); G81.94 Hemiplegia, unspecified affecting left nondominant side; N40.0 Benign prostatic hyperplasia without lower urinary tract symptoms; I10 Essential (primary) hypertension; R47.81 Slurred speech; Z20.828 Contact with and (suspected) exposure to other viral communicable diseases; F03.90 Unspecified dementia, unspecified severity, without behavioral disturbance, psychotic disturbance, mood disturbance, and anxiety; E11.9 Type 2 diabetes mellitus without complications; Z86.73 Personal history of transient ischemic attack (TIA), and cerebral infarction without residual deficits; Z79.4 Long term (current) use of insulin; Z79.02 Long term (current) use of antithrombotics/antiplatelets; Z79.899 Other long term (current) drug therapy
CPT/HCPCS: 36415; 70450; 70551; 71045; 80048; 80061; 81003; 82550; 82947; 84484; 85025; 85610; 85730; 87635; 93005; 97162; 99285; J1650; J2060; J2405

== ENCOUNTER 2021-07-11 16:34 | Emergency (ER) | payer MEDICARE, MEDICAID, SELFPAY ==
--- NOTE | ~2021-07-11 | XR_ITS ---
EXAMINATION: XR ABDOMEN KUB CLINICAL INDICATION: Nausea and vomiting. Surgical history. COMPARISON: KUB 03/16/2018 TECHNIQUE: AP view of the abdomen. FINDINGS: Large volume of stool scattered throughout the colon. There is gas in both the large and small bowel loops. Note of the bowel loops are abnormally dilated. The bowel gas pattern is nonobstructive. No radiopaque urinary calculus. Vascular calcifications in the pelvis and upper thigh. Mild degenerative change of the dorsal spine and lumbar spine. Lung bases are normally aerated. XR/XR KUB IMPRESSION: Large volume of stool in colon. Nonobstructive bowel pattern.
--- NOTE | 2021-07-11 16:50 | ECG_ITS ---
Test Reason : general medical Blood Pressure : / mmHG Vent. Rate : 096 BPM Atrial Rate : 096 BPM P-R Int : 182 ms QRS Dur : 118 ms QT Int : 382 ms P-R-T Axes : 082 -82 082 degrees QTc Int : 482 ms Normal sinus rhythm Right bundle branch block Left anterior fascicular block Bifascicular block Abnormal ECG When compared with ECG of 04-MAY-2020 10:29, IA interval has decreased Referred By: Marisela Mascorro Electronically Signed By:ARUN SUTHERLAND
[2021-07-11 16:56] VITALS: BP 151/64; BP 190/90; PULSE 103; PULSE 90; RESP 15; TEMP 36.9; O2SAT 96; O2SAT 97; BMI 20.5
--- NOTE | 2021-07-11 17:35 | ED_ITS ---
HPI - General Adult General Chief complaint: General Medical Stated complaint: GEN WEAKNESS,NAUSEA,VOMITING PER FAMILY Time Seen by Provider: 07/11/21 16:50 Source: patient and family () Mode of arrival: EMS History of Present Illness HPI narrative: 80-year-old male with history of dementia and diabetes is brought in by his via EMS for concerns the patient has had 2 episodes of nausea with vomiting as well as associated bowel movements after both breakfast and lunch today without any other associated fever, chills, shortness of breath, chest pain/palpitations. The states that her is fully vaccinated to include a booster and was recently started on some medication to treat his constipation. She denies noting any blood in either the vomitus or stool. states that the patient walks with a walker at baseline, but she feels that he has become weaker in that she called the ambulance because patient was unable to get out of his chair. Related Data Home Medications Medication Instructions Recorded Confirmed amlodipine 5 mg tablet 5 mg PO DAILY 05/04/20 05/04/20 atorvastatin 40 mg tablet 40 mg PO DAILY 05/04/20 05/04/20 brimonidine 0.2 %-timolol 1 drp OPHTHALMIC (EYE) BID 05/04/20 05/04/20 0.5 % eye drops (Combigan) clopidogrel 75 mg tablet 75 mg PO DAILY 05/04/20 05/04/20 dorzolamide 2 % eye drops 1 drp OPHTHALMIC (EYE) TID 05/04/20 05/04/20 finasteride 5 mg tablet 5 mg PO DAILY 05/04/20 05/04/20 insulin glargine 100 unit/mL 8 unit SUBCUT QAM 05/04/20 05/04/20 subcutaneous solution (Lantus U-100 Insulin) insulin glargine 100 unit/mL 11 unit SUBCUT BEDTIME 05/04/20 05/04/20 subcutaneous solution (Lantus U-100 Insulin) insulin lispro 100 unit/mL See Protocol SUBCUT QIDACHS 05/04/20 05/04/20 subcutaneous solution (Humalog U-100 Insulin) lisinopril 10 mg tablet 1 tab PO DAILY 05/04/20 05/04/20 oxybutynin chloride 5 mg 1 tab PO DAILY 05/04/20 05/04/20 tablet sertraline 50 mg tablet 1 tab PO DAILY 05/04/20 05/04/20 tamsulosin 0.4 mg capsule 1 cap PO BEDTIME 05/04/20 05/04/20 Allergies Allergy/AdvReac Type Severity Reaction Status Date / Time No Known Allergies Allergy Unverified 02/23/20 15:07 Review of Systems Verdana 4l Review of Systems: Verdana 4d Pertinent positives PI 10 Verdana 4d point review is is otherwise negative. Verdana 4d [facility] Past Medical History Source: nursing notes reviewed Medical History BPH (benign prostatic hyperplasia) Diabetes Glaucoma HLD (hyperlipidemia) HTN (hypertension) Intracranial hemorrhage Stroke Social History Social History Household Members: Spouse Housing: House Do you presently have visiting nurse or other home services: No Alcohol intake: former Advance Directives: No Advance Directives Information Provided: No service: No Current occupational status: retired Physical Exam Verdana 4l Vital Signs: Verdana 4d Verdana 4d Vital Signs: Verdana 4d Verdana 4Bd Last Vital Signs Verdana 4d Order Desk Caller New 4d Order Desk Caller New 4d Temp 98.6 F 07/11/21 20:07 Order Desk Caller New 4d Pulse 94 07/11/21 20:07 Order Desk Caller New 4d Resp 13 07/11/21 20:07 BP 140/64 H 07/11/21 20:07 Pulse Ox 96 07/11/21 20:07 BMI result Body Mass Index 20.5 VITAL SIGNS: Reviewed. GENERAL: Well developed, well nourished, in no acute distress. HEAD: Normocephalic/atraumatic EYES: PERRLA, EOMI OROPHARYNX: no oral lesions noted, posterior pharynx clear NECK: Supple, no adenopathy LUNGS: Normal breath sounds. No adventitious sounds or accessory muscle use. SpO2<97> CARDIOVASCULAR: Regular rate and rhythm without noted murmurs, no JVD or lower extremity edema. ABDOMEN: Soft, non-tender, non-distended with bowel sounds. MUSCULOSKELETAL: No tenderness, deformities, or effusions noted on gross inspection. EXTREMITIES: No cyanosis, clubbing or edema. SKIN: Inspection of the skin reveals no rashes NEUROLOGIC: Alert and strength and sensation to light touch were grossly intact x 4, otherwise patient is nonfocal Course Course Course Narrative: 80-year-old male with history and clinical presentation consistent with possible gastroenteritis, will rule out infectious/obstructive etiologies as he also has a remote surgical history. On review of all investigations there are no acute plain patient's the possibility of a transient gastroenteritis. KUB is negative for obstructive evidence which further corroborates clinical exam. On re-evaluation patient is noted to tolerate oral intake and will be evaluated for ambulation. Patient is able to ambulate at baseline level and he will be discharged home as his is not interested in pursuing any rehab services. All results discussed with his at bedside with a sign language interpreter. Medical Decision Making Lab Data Result diagrams: 07/11/21 17:38 07/11/21 17:38 Labs: Lab Results 07/11/21 07/11/21 07/11/21 Range/Units 17:35 17:38 17:38 WBC 9.2 (4.8-10.8) X10*3/uL RBC 4.37 L (4.60-5.80) X10*6/uL Hgb 13.4 L (14.0-18.0) g/dl Hct 39.9 L (42.0-52.0) % MCV 91.3 (80.0-98.0) fL MCH 30.7 (27.0-33.0) pg MCHC 33.6 (31.0-36.0) g/dl RDW 12.5 (11.0-16.0) % Plt Count 181 (160-400) X10*3/uL MPV 10.0 (9.4-12.4) fL Immature Gran % (Auto) 0.3 (0.0-0.4) % Neut % (Auto) 86.4 H (45-73) % Lymph % (Auto) 4.7 L (20-40) % Roberts % (Auto) 4.6 (2-11) % Eos % (Auto) 3.8 (0-4) % Baso % (Auto) 0.2 (0-2) % Lymph # (Auto) 0.4 L (1.2-4.9) X10*3/uL Roberts # (Auto) 0.4 (0.1-1.2) X10*3/uL Eos # (Auto) 0.4 (0.0-0.4) X10*3/uL Baso # (Auto) 0.0 (0.0-0.2) X10*3/uL Abs Immat Gran (auto) 0.03 (0.00-0.03) X10*3/uL Absolute Neuts (auto) 7.9 (2.0-8.3) x10*3/uL Absolute Nucleated RBC 0.000 (0.0-0.012) X10*3/uL Nucleated RBC % (auto) 0.0 (0.0-0.2) /100WBC PT (9.9-13.0) SEC INR (0.9-1.1) Sodium 140 (135-145) mmol/L Potassium 4.8 (3.3-5.1) mmol/L Chloride 104 (96-108) mmol/L Carbon Dioxide 28 (22-29) mmol/L Anion Gap 13 (12-20) BUN 30 H (9-16) mg/dL Creatinine 1.10 (0.5-1.4) mg/dL Estim Creat Clear Calc 47.6 Estimated GFR > 60 POC Glucose (60-115) mg/dL Random Glucose 149 H (60-115) mg/dL Calcium 9.5 D (8.4-10.2) mg/dL Total Bilirubin 1.0 (0.0-1.0) mg/dL AST 16 (5-37) U/L ALT 20 (0-40) U/L Alkaline Phosphatase 96 (39-117) U/L Troponin I High Sens (<3.5-35.0) ng/L Total Protein 7.4 (6.5-8.0) g/dL Albumin 4.1 (3.5-5.0) g/dL COVID-19 ([facility]) Negative (Negative) COVID-19 Clin Com See Note 07/11/21 07/11/21 07/11/21 Range/Units 17:38 17:38 17:50 WBC (4.8-10.8) X10*3/uL RBC (4.60-5.80) X10*6/uL Hgb (14.0-18.0) g/dl Hct (42.0-52.0) % MCV (80.0-98.0) fL MCH (27.0-33.0) pg MCHC (31.0-36.0) g/dl RDW (11.0-16.0) % Plt Count (160-400) X10*3/uL MPV (9.4-12.4) fL Immature Gran % (Auto) (0.0-0.4) % Neut % (Auto) (45-73) % Lymph % (Auto) (20-40) % Roberts % (Auto) (2-11) % Eos % (Auto) (0-4) % Baso % (Auto) (0-2) % Lymph # (Auto) (1.2-4.9) X10*3/uL Roberts # (Auto) (0.1-1.2) X10*3/uL Eos # (Auto) (0.0-0.4) X10*3/uL Baso # (Auto) (0.0-0.2) X10*3/uL Abs Immat Gran (auto) (0.00-0.03) X10*3/uL Absolute Neuts (auto) (2.0-8.3) x10*3/uL Absolute Nucleated RBC (0.0-0.012) X10*3/uL Nucleated RBC % (auto) (0.0-0.2) /100WBC PT 13.3 H (9.9-13.0) SEC INR 1.2 H (0.9-1.1) Sodium (135-145) mmol/L Potassium (3.3-5.1) mmol/L Chloride (96-108) mmol/L Carbon Dioxide (22-29) mmol/L Anion Gap (12-20) BUN (9-16) mg/dL Creatinine (0.5-1.4) mg/dL Estim Creat Clear Calc Estimated GFR POC Glucose 130 H (60-115) mg/dL Random Glucose (60-115) mg/dL Calcium (8.4-10.2) mg/dL Total Bilirubin (0.0-1.0) mg/dL AST (5-37) U/L ALT (0-40) U/L Alkaline Phosphatase (39-117) U/L Troponin I High Sens 8.7 (<3.5-35.0) ng/L Total Protein (6.5-8.0) g/dL Albumin (3.5-5.0) g/dL COVID-19 ([facility]) (Negative) COVID-19 Clin Com ECG Data Attestation: I personally reviewed and interpreted this ECG as follows: Prior ECG tracings: available for review Interpretation: NSR, RBBB, HR-96, no STEMI, MS/QTC are within normal limits Discharge Plan Discharge Clinical Impression: Gastroenteritis Patient Disposition: Home, Self-Care Instructions: Gastroenteritis (ED) Additional Instructions: 1. Reanudar todos los medicamentos caseros seg?n lo prescrito. 2. Contin?e aumentando la ingesta oral. 3. Ehsan un seguimiento con gonzales proveedor de atenci?n primaria en los pr?ximos 1 a 2 d?as. Regrese a la jean marie de emergencias si los s?ntomas empeoran. Prescriptions: No Action Lantus U-100 Insulin 100 unit/mL solution 8 unit subcut QAM 0RF Lantus U-100 Insulin 100 unit/mL solution 11 unit subcut BEDTIME 0RF tamsulosin 0.4 mg capsule 1 cap PO BEDTIME 0RF lisinopril 10 mg tablet 1 tab PO DAILY 0RF finasteride 5 mg tablet 5 mg PO DAILY 0RF atorvastatin 40 mg tablet 40 mg PO DAILY 0RF clopidogrel 75 mg tablet 75 mg PO DAILY 0RF amlodipine 5 mg tablet 5 mg PO DAILY 0RF insulin lispro [Humalog U-100 Insulin] 100 unit/mL solution See Protocol unit subcut QIDACHS 0RF Protocol: Insulin Correction Scale Less than or equal to 110 ---- Give (units): 0 111 to 150 Give (units): 0 151 to 200 Give (units): 2 201 to 250 Give (units): 4 251 to 300 Give (units): 6 301 to 350 Give (units): 8 Greater than 350 Give (units): 10 Call MD if Blood Glucose > : 350 oxybutynin chloride 5 mg tablet 1 tab PO DAILY 0RF sertraline 50 mg tablet 1 tab PO DAILY 0RF dorzolamide 2 % drops 1 drp ophthalmic (eye) TID 0RF Combigan 0.2-0.5 % drops 1 drp ophthalmic (eye) BID 0RF Interventions: ED Discharge Assessment Last Done: 07/11/21 20:49 Discharge Date/Time: 07/11/21 20:50 Print Language: Albanian
[2021-07-11 17:42] LABS: MANUAL DIFF FLAG NO
[2021-07-11 17:43] LABS: Basophils Percent Auto 0.2 % (0-2); Eosinophils Absolute Auto 0.4 X10*3/uL (0.0-0.4); Eosinophils Percent Auto 3.8 % (0-4); Hematocrit 39.9 % (42.0-52.0); Hemoglobin 13.4 g/dl (14.0-18.0); Imm Gran Abs Auto 0.03 X10*3/uL (0.00-0.03); Imm Gran Pct Auto 0.3 % (0.0-0.4); Lymphocytes Absolute Auto 0.4 X10*3/uL (1.2-4.9); Lymphocytes Percent Auto 4.7 % (20-40); Mean Corpuscular HGB Conc 33.6 g/dl (31.0-36.0); Mean Corpuscular Hemoglobin 30.7 pg (27.0-33.0); Mean Corpuscular Volume 91.3 fL (80.0-98.0); Monocytes Absolute Auto 0.4 X10*3/uL (0.1-1.2); Monocytes Percent Auto 4.6 % (2-11); Neutrophils Absolute Auto 7.9 x10*3/uL (2.0-8.3); Neutrophils Percent Auto 86.4 % (45-73); Platelet Count 181 X10*3/uL (160-400); Red Blood Count 4.37 X10*6/uL (4.60-5.80); Red Cell Distribution Width 12.5 % (11.0-16.0); White Blood Count 9.2 X10*3/uL (4.8-10.8)
[2021-07-11 17:49] LABS: INTERNATIONAL NORM RATIO 1.2 (0.9-1.1); Prothrombin Time 13.3 SEC (9.9-13.0)
[2021-07-11 17:53] LABS: Glucose, Whole Blood 130 mg/dL (60-115)
[2021-07-11 17:59] LABS: Alanine Aminotransferase 20 U/L (0-40); Albumin Level 4.1 g/dL (3.5-5.0); Alkaline Phosphatase 96 U/L (39-117); Anion Gap 13 (12-20); Aspartate Amino Transferase 16 U/L (5-37); Blood Urea Nitrogen 30 mg/dL (9-16); Calcium 9.5 mg/dL (8.4-10.2); Carbon Dioxide 28 mmol/L (22-29); Chloride 104 mmol/L (96-108); Creatinine Clr Calc Pharmacy 47.6; Estimated Glomerular Filt Rate > 60; Glucose Random 149 mg/dL (60-115); Potassium 4.8 mmol/L (3.3-5.1); Sodium 140 mmol/L (135-145); Total Protein 7.4 g/dL (6.5-8.0)
[2021-07-11 18:03] LABS: COVID-19 Test Negative (Negative); IDNOW Serial# 9DD0AD1C
[2021-07-11 18:04] LABS: Troponin-I High Sensitivity 8.7 ng/L (<3.5-35.0)
--- NOTE | 2021-07-11 19:57 | PC.NURSE ---
bladder scan obtained 266, straight cath done with no urine output. MD aware. pt medicated with zofran and pt po challange at this time. pt tolerating well. pt awaiting for possible d/c.
[2021-07-11 20:07] VITALS: BP 140/64; PULSE 94; RESP 13; TEMP 37; O2SAT 96
== END 2021-07-11 20:50 | disposition home or self-care (01) ==
PROVIDERS: Emergency Provider Student in an Organized Health Care Education/Training Program
DX: K52.9 Noninfective gastroenteritis and colitis, unspecified (principal); Z20.822 Contact with and (suspected) exposure to COVID-19; R11.2 Nausea with vomiting, unspecified; E11.9 Type 2 diabetes mellitus without complications; I10 Essential (primary) hypertension; E78.5 Hyperlipidemia, unspecified
CPT/HCPCS: 36415; 51701; 51798; 74018; 80053; 82947; 84484; 85025; 85610; 87635; 93005; 96374; 99284

== ENCOUNTER 2023-11-27 06:42 | Inpatient (IN) | payer MEDICARE, MEDICAID, SELFPAY ==
[2023-11-27] VITALS (12 sets, daily range): BP systolic 98–159; BP diastolic 55–91; PULSE 62–94; RESP 16–20; TEMP 36.3–38; O2SAT 92–99; BMI 20.7; BMI 19.9; BMI 19.1
--- NOTE | ~2023-11-27 | CT_ITS ---
EXAMINATION: CT ANGIOGRAM OF THE CHEST WITH AND WITHOUT CONTRAST (CT PULMONARY ANGIOGRAM FOR PE) EXAMINATION: CT ANGIOGRAM OF THE CHEST WITH CONTRAST (CT PULMONARY ANGIOGRAM FOR PE) CLINICAL INFORMATION: Reason for Exam elevated d-dimer rule out PE, abnormal EKG COMPARISON: Chest radiograph from 11/27/2023 TECHNIQUE: Prior to contrast administration, noncontrast localization images were obtained. Subsequently, multidetector volumetric imaging was performed from the thoracic inlet to below the diaphragms following the administration of 65 mL Omnipaque 350 intravenous contrast. No contrast reaction reported. Sagittal, coronal, and MIP oblique sagittal reformatted images were obtained on the CT workstation, uploaded to PACS, and reviewed. This CT examination was performed using dose optimization techniques as appropriate, variously including the following: *Automated exposure control *Adjustment of mA and/or kV according to patient size (this includes techniques or standardized protocols for targeted exams where dose is matched to indication/reason for exam; i.e. extremities or head) *Use of iterative reconstruction technique DLP: Total exam dose-length product 346 mGy-cm FINDINGS: LUNGS AND PLEURA: There is generalized thickening of bronchial crisostomo and/or bronchovascular interstitium. Also, smooth thickening of interlobular septa in periphery of upper lobes and lower lobes. Findings are suggestive of interstitial edema. Trace bilateral pleural effusions are present along with mild atelectasis in dependent aspect of each lower lobe. Small patchy and hazy centrilobular opacities in the posterior right upper lobe and adjacent right middle lobe are nonspecific and could represent edema, inflammation and/or infectious change. There is likely a small 0.3 cm lymph node along the posterior surface of the right major fissure (image 251, series 11). Based on Fleischner Society guidelines, no chest CT imaging follow-up recommended. QUALITY OF STUDY/CONTRAST BOLUS: Satisfactory. PULMONARY ARTERIES: The pulmonary arteries are normal in size. No embolic filling defects within the main, lobar or segmental vessels. OTHER CARDIOVASCULAR: The heart size is normal. Mitral valve annulus is calcified. No pericardial effusion. There is atherosclerotic calcification of the thoracic aorta without aneurysm or dissection. Multivessel coronary artery atherosclerotic calcification is present. MEDIASTINUM/LOWER NECK: No mediastinal mass. The esophagus is mildly distended with gas. Consider possibility of chronic esophageal dysmotility. Thyroid gland is unremarkable. LYMPHATICS: No pathologic sized axillary, hilar or mediastinal lymph nodes. UPPER ABDOMEN: Simple cyst of the upper pole of the right kidney is 7.5 cm transverse diameter. No renal imaging follow-up is recommended for a simple cyst. OSSEOUS STRUCTURES: Bones are diffusely osteopenic. Skeletal hyperostosis with presence of bulky flowing anterior ligament ossification of the mildly degenerated thoracic spine. CT/CT angio chest PE protocol IMPRESSION: * Atherosclerotic disease of coronary arteries and thoracic aorta without aortic aneurysm. * No evidence of pulmonary embolism. * Interstitial pulmonary edema, trace pleural effusions and atelectasis in dependent aspect of each lower lobe. * Small patchy and hazy opacities in the posterior right upper lobe and adjacent right middle lobe are nonspecific. It is uncertain if this is from mild alveolar edema or pneumonia.
--- NOTE | ~2023-11-27 | CT_ITS ---
EXAMINATION: CT HEAD WITHOUT CONTRAST CLINICAL INFORMATION: Mental status change COMPARISON: Previous head CT most recent April 2020 TECHNIQUE: Contiguous axial imaging was performed from the skull base to vertex without intravenous administration of contrast. This CT examination was performed using dose optimization techniques as appropriate, variously including the following: *Automated exposure control *Adjustment of mA and/or kV according to patient size (this includes techniques or standardized protocols for targeted exams where dose is matched to indication/reason for exam; i.e. extremities or head) *Use of iterative reconstruction technique DLP: 621 mGy-cm FINDINGS: There is no evidence of an extra-axial collection. There is no evidence of intra or extra-axial hemorrhage. The ventricles and extra-axial CSF spaces are prominent suggestive of generalized atrophy. There is nonspecific periventricular white matter disease. There are old bilateral thalamic and basal ganglia lacunar infarcts that appear unchanged. No mass, mass effect or acute infarct is seen. No skull fracture. Question small scalp hematoma over the high posterior vertex. Inflammatory changes in the right maxillary sinus. Orbits are stable with evidence of previous lens replacements and right-sided glaucoma drainage device. CT/CT head/brain wo IV con IMPRESSION: No acute intracranial findings. Generalized atrophy, nonspecific periventricular white matter disease and old bilateral thalamic and basal ganglia lacunar infarcts similar to previous exam.
--- NOTE | ~2023-11-27 | XR_ITS ---
EXAMINATION: XR CHEST CLINICAL INFORMATION: Weakness COMPARISON: Chest radiograph 05/04/2020 TECHNIQUE: Frontal view of the chest was obtained. FINDINGS: The lungs are adequately expanded. Mild bilateral interstitial prominence. No focal consolidation. No pleural effusions or pneumothorax. The cardiomediastinal silhouette is likely within normal limits for technique. Degenerative changes involving the visualized spine, bilateral acromioclavicular and glenohumeral joints. XR/XR chest 1V IMPRESSION: Mild bilateral interstitial prominence which may be secondary to mild edema or atypical viral infection.
--- NOTE | 2023-11-27 07:00 | CA_ITS ---
Transthoracic Echocardiogram Patient (Last, First, Middle): Jose Mcgrath, Gender: Male Date of : 1940 Age: 83 Procedure Date: 11/27/2023 Procedure Type: Transthoracic Echocardiogram Location: OP Height: 177.8 cm Weight: 64.86 kg BSA: 1.81 m2 Heart Rate: bpm BP: 138 / 60 mmHg Radio Technician: SB Referring MD: Evelia Lim DO Symptoms: elevated troponin Study Quality: Adequate w Contrast ECG Rhythm: Atrial Fibrillation Conclusions: - Normal left ventricular cavity size. The left ventricular systolic function is mild to moderately decreased. The visually estimated ejection fraction is between 35-40%. - The mid anterior and mid inferior segments are hypokinetic. - The entire apex, the mid anterolateral, mid inferoseptal, mid anteroseptal, and mid inferolateral segments are akinetic. - Takotsubo vs multivessel disease. Findings Procedure Information Contrast agent, definity, is being given per protocol without apparent complications. Left Ventricle Normal left ventricular cavity size. The left ventricular systolic function is mild to moderately decreased. The visually estimated ejection fraction is between 35-40%. There is evidence of regional wall motion abnormalities. Diastolic function is indeterminate on the basis of available data. There is moderate septal asymmetric hypertrophy. Wall Motion Rest Echo Findings The mid anterior and mid inferior segments are hypokinetic. The entire apex, the mid anterolateral, mid inferoseptal, mid anteroseptal, and mid inferolateral segments are akinetic. Right Ventricle Normal right ventricular cavity size and systolic function. Atria The left atrium is normal in size. Aortic Valve There is mild calcification of the aortic valve. There is no aortic valve stenosis. There is no aortic valve regurgitation. Mitral Valve There is severe mitral annular calcification. There is no mitral valve regurgitation. There is no mitral valve stenosis. Pulmonic Valve The pulmonic valve is likely normal. Tricuspid Valve Normal tricuspid valve structure. There is trace tricuspid valve regurgitation. Significantly elevated right atrial pressure. There is no evidence of pulmonary hypertension. Great Vessels All visible segments of the aorta are normal in size. Venous The inferior vena cava is dilated and collapses less than 50% with inspiration. Pericardium/Pleural There is no evidence of pericardial effusion. Prior Study Comparison No prior study available for comparison. Measurements 2D Linear Measurements IVSd: 0.67 0.6-0.9/0.6-1.0 cm LVIDd: 4.56 3.9-5.3/4.2-5.9 cm LVIDd Index: 2.52 2.4-3.2/2.2-3.1 cm/m2 LVIDs: 3.76 2.0-3.6 cm LVPWd: 0.63 0.7-1.1 cm LA Diam: 3.40 2.7-3.8/3.0-4.0 cm LAIDs Index: 1.88 1.5-2.3 cm/m2 LV Mass: 110.03 67-162/88-224 g LV Mass Index: 60.79 43-95/49-115 g/m2 LVOT Diam: 1.80 3.0+(-)1.3 cm 2D Systolic Function EF 4C: 39.40 >55% EF 2C: 43.00 >55% EF BiP: 40.60 >55% Mitral Valve MV Pk E: 0.99 MV PK A: 1.22 MV Decel Time: 206.00 E/A: 0.80 E'Lateral: 5.11 E'Medial: 4.68 E/E' Med: 21.20 E/E' Lat: 19.40 PHT: 60.00 MVA PHT: 3.67 Decel Montgomery: 4.82 Aortic Valve AoV Pk Rufino: 0.88 AoV Pk Grad: 3.00 ANGEL: 2.21 LVOT LVOT Pk Rufino: 0.77 LVOT Mn Rufino: 0.50 LVOT VTI: 0.16 LVOT Pk Grad: 2.00 LVOT Mn Grad: 1.00 LVOT Diam: 1.80 LVOT Area: 2.54 Diastolic Function MV Pk E: 0.99 MV Pk A: 1.22 E/A: 0.80 E'Medial: 4.68 E/E' Med: 21.20 E' Laterial: 5.11 E/E' Lat: 19.40 Right Ventricle TAPSE (mm): 14.00 TVS' Rufino: 11.00 Tricuspid Valve TR Pk Rufino: 2.49 TR Pk Grad: 25.00 RA Press: 3.00 RVSP: 28.00 Great Vessels Aorta Sinus of Valsalva: 3.20 2.0-3.5 cm Updated in Other Vendor System with Status of Final Tex Issa MD electronically signed on 11/27/2023 8:08:39 PM with status of Final
[2023-11-27 07:04] LABS: MANUAL DIFF FLAG NO
[2023-11-27 07:18] LABS: Basophils Percent Auto 0.5 % (0-2); Eosinophils Absolute Auto 0.3 X10*3/uL (0.0-0.4); Eosinophils Percent Auto 4.8 % (0-4); Hematocrit 31.4 % (42.0-52.0); Hemoglobin 10.8 g/dl (14.0-18.0); Imm Gran Abs Auto 0.02 X10*3/uL (0.00-0.03); Imm Gran Pct Auto 0.3 % (0.0-0.4); Lymphocytes Absolute Auto 1.1 X10*3/uL (1.2-4.9); Lymphocytes Percent Auto 17.4 % (20-40); Mean Corpuscular HGB Conc 34.4 g/dl (31.0-36.0); Mean Corpuscular Volume 90.2 fL (80.0-98.0); Mean Platelet Volume 10.8 fL (9.4-12.4); Monocytes Absolute Auto 0.5 X10*3/uL (0.1-1.2); Monocytes Percent Auto 8.4 % (2-11); Neutrophils Absolute Auto 4.3 x10*3/uL (2.0-8.3); Neutrophils Percent Auto 68.6 % (45-73); Platelet Count 185 X10*3/uL (160-400); Red Blood Count 3.48 X10*6/uL (4.60-5.80); Red Cell Distribution Width 12.5 % (11.0-16.0); White Blood Count 6.2 X10*3/uL (4.8-10.8)
--- NOTE | 2023-11-27 07:19 | ECG_ITS ---
Test Reason : WEAKNESS Blood Pressure : / mmHG Vent. Rate : 070 BPM Atrial Rate : 070 BPM P-R Int : 198 ms QRS Dur : 124 ms QT Int : 432 ms P-R-T Axes : 059 -80 082 degrees QTc Int : 466 ms Normal sinus rhythm Right bundle branch block Left anterior fascicular block Bifascicular block Anteroseptal infarct (cited on or before 27-NOV-2023) Abnormal ECG When compared with ECG of 11-JUL-2021 18:45, Serial changes of evolving Anteroseptal infarct Present Referred By: Evelia Lim Electronically Signed By:Tex Issa
--- NOTE | 2023-11-27 07:44 | ED.GENADULT ---
HPI - General Adult General Chief complaint: General Medical Stated complaint: AMS Time Seen by Provider: 11/27/23 06:59 Source: EMS and old records reviewed Mode of arrival: EMS Limitations: altered mental status History of Present Illness ED Provider: LAZ STILES narrative: 83 yo male with PMH of stroke, HTN, HLD, DM, dementia here with c/o not acting right last night incontinent of urine last night. Not responding to questions in the middle of the night. He would not do his usual routine. Here he has no complaints but parrots questions back to me. MD complaint: change in mental status Onset (ago): day(s) (reportedly all night) Radiation: non-radiation Severity: moderate Relieving factors: none Exacerbating factors: none Associated symptoms: denies other symptoms Treatments prior to arrival: none Related Data Home Medications ?Medication ?Instructions ?Recorded ?Confirmed amlodipine 5 mg tablet 5 mg PO DAILY 05/04/20 05/04/20 atorvastatin 40 mg tablet 40 mg PO DAILY 05/04/20 05/04/20 brimonidine 0.2 %-timolol 0.5 % 1 drp ophthalmic (eye) BID 05/04/20 05/04/20 eye drops (Combigan) clopidogrel 75 mg tablet 75 mg PO DAILY 05/04/20 05/04/20 dorzolamide 2 % eye drops 1 drp ophthalmic (eye) TID 05/04/20 05/04/20 finasteride 5 mg tablet 5 mg PO DAILY 05/04/20 05/04/20 insulin glargine 100 unit/mL 8 unit subcut QAM 05/04/20 05/04/20 subcutaneous solution (Lantus U-100 Insulin) insulin glargine 100 unit/mL 11 unit subcut BEDTIME 05/04/20 05/04/20 subcutaneous solution (Lantus U-100 Insulin) insulin lispro 100 unit/mL See Protocol subcut QIDACHS 05/04/20 05/04/20 subcutaneous solution (Humalog U-100 Insulin) lisinopril 10 mg tablet 1 tab PO DAILY 05/04/20 05/04/20 oxybutynin chloride 5 mg tablet 1 tab PO DAILY 05/04/20 05/04/20 sertraline 50 mg tablet 1 tab PO DAILY 05/04/20 05/04/20 tamsulosin 0.4 mg capsule 1 cap PO BEDTIME 05/04/20 05/04/20 Allergies Allergy/AdvReac Type Severity Reaction Status Date / Time No Known Allergies Allergy Verified 11/27/23 06:54 Review of Systems Review of Systems: ROS unable to be obtained due to altered mental status [facility] Past Medical History Attestation statement: The following information was validated with the patient. Source: old records reviewed Medical History Dementia BPH (benign prostatic hyperplasia) Glaucoma Intracranial hemorrhage Stroke HLD (hyperlipidemia) HTN (hypertension) Diabetes Social History Social History Household Members: Spouse Housing: House Do you presently have visiting nurse or other home services: No Alcohol intake: former Advance Directives: Yes Advance Directives Information Provided: Yes Advance Directives on File: No Do you have a plan to hurt others: No Plan service: No Current occupational status: retired Physical Exam ED Vital Signs: Vital Signs - 24 hr 11/27/23 06:52 11/27/23 06:56 11/27/23 08:30 Temperature 97.3 F 98.6 F Pulse Rate 74 74 70 Respiratory Rate 16 16 16 Blood Pressure 149/61 H 149/61 H 118/58 L Pulse Oximetry 93 93 97 Oxygen Delivery Method Room Air Room Air Room Air 11/27/23 09:56 11/27/23 10:13 Temperature Pulse Rate 67 66 Respiratory Rate 17 18 Blood Pressure 125/59 L 132/61 Pulse Oximetry 94 95 Oxygen Delivery Method Room Air Room Air BMI result Body Mass Index 19.9 Appearance: Alert. follows commands shakes both hands smiles but parrots questions back No acute distress. Eyes: Pupils equal, round and reactive to light. ENT: Pharynx normal. atraumatic Neck: Normal inspection. Neck supple. CVS: Normal heart rate and rhythm. Pulses normal. Respiratory: No respiratory distress. Breath sounds normal. Abdomen: Soft and non-tender. no grimace Skin: Skin warm and dry. Normal skin color. Normal skin turgor. Extremities: No lower extremity edema. no pain with ROM testing Neuro: parrots questions back, lifts legs, squeezes both hands Course Course Course Narrative: asked patient he denies chest pain Daughter Britt aware she notes since last weekend his legs have been weaker and he needs more assistance he never complains of pain and then last night was more altered. Reevaluation(s) Reevaluation #1: lasix ordered low dose heparin gtt ordered as well Medications Administered Discontinued Medications Generic Name Dose Route Start Last Admin Trade Name Diana PRN Reason Stop Dose Admin Iohexol 65 ml 11/27/23 09:37 11/27/23 09:37 Iohexol 350 Mg/Ml 100 Ml Infus..Btl IV 11/27/23 09:38 65 ml ONCE ONE Administration Medical Decision Making Medical Decision Making MDM Narrative: 83 yo male with PMH of stroke, HTN, HLD, DM, dementia here with c/o change in behaviors at this time he does have a cough he has no abdominal ttp and no signs of head trauma will start with labs, CXR, UA and EKG this is a wide differential and family is not present. Will proceed with further testing if no findings or any changes arise while he is in ED or if family provides additional information Differential Diagnosis Differential Diagnoses: The differential diagnosis associated with the presentation includes metabolic or toxic encephalopathy Admission/Observation Consideration of admission/observation: Escalation of care including admission/observation considered negative guiac will start on low dose heparin gtt as discussed but he is anemic Consult Healthcare Provider Management of the patient was discussed with: Hospitalist (will admit) and [employer] Worker message sent to cardiology [id number] Luis Manuel - heparin if no contraindications, ECHO and admit to medicine Lab Data [facility] Lab Attestation statement: I reviewed the patient's lab results. 11/27/23 07:00 11/27/23 07:23 Labs: Lab Results 11/27/23 11/27/23 11/27/23 Range/Units 07:00 07:23 08:55 WBC 6.2 (4.8-10.8) X10*3/uL RBC 3.48 L D (4.60-5.80) X10*6/uL Hgb 10.8 L (14.0-18.0) g/dl Hct 31.4 L D (42.0-52.0) % MCV 90.2 (80.0-98.0) fL MCH 31.0 (27.0-33.0) pg MCHC 34.4 (31.0-36.0) g/dl RDW 12.5 (11.0-16.0) % Plt Count 185 (160-400) X10*3/uL MPV 10.8 (9.4-12.4) fL Immature Gran % (Auto) 0.3 (0.0-0.4) % Neut % (Auto) 68.6 (45-73) % Lymph % (Auto) 17.4 L (20-40) % Holmes % (Auto) 8.4 (2-11) % Eos % (Auto) 4.8 H (0-4) % Baso % (Auto) 0.5 (0-2) % Lymph # (Auto) 1.1 L (1.2-4.9) X10*3/uL Holmes # (Auto) 0.5 (0.1-1.2) X10*3/uL Eos # (Auto) 0.3 (0.0-0.4) X10*3/uL Baso # (Auto) 0.0 (0.0-0.2) X10*3/uL Abs Immat Gran (auto) 0.02 (0.00-0.03) X10*3/uL Absolute Neuts (auto) 4.3 (2.0-8.3) x10*3/uL Absolute Nucleated RBC 0.000 (0.0-0.012) X10*3/uL Nucleated RBC % (auto) 0.0 (0.0-0.2) /100WBC PT (11.1-13.3) SEC INR (0.9-1.1) D-Dimer High Sensitivty NG/ML Sodium 142 (135-145) mmol/L Potassium 4.0 (3.3-5.1) mmol/L Chloride 105 (96-108) mmol/L Carbon Dioxide 31 H (22-29) mmol/L Anion Gap 10 L (12-20) BUN 21 H (9-16) mg/dL Creatinine 0.89 (0.5-1.4) mg/dL Estim Creat Clear Calc 56.0 Estimated GFR > 60 POC Glucose 201 H (60-115) mg/dL Random Glucose 225 H (60-115) mg/dL Calcium 9.1 (8.4-10.2) mg/dL Magnesium 1.8 (1.6-2.6) mg/dL Total Bilirubin 0.7 (0.0-1.0) mg/dL AST 17 (5-37) U/L ALT 17 (0-40) U/L Alkaline Phosphatase 85 (39-117) U/L Total Creatine Kinase 37 L (38-174) U/L Troponin I High Sens 1147.0 H* (<3.5-35.0) ng/L B-Natriuretic Peptide 905 H (<100) pg/mL Total Protein 6.6 (6.5-8.0) g/dL Albumin 3.6 (3.5-5.0) g/dL Lipase 6 L (8-78) U/L Urine Color Urine Appearance Urine pH (5.0-9.0) Ur Specific [place] (1.005-1.025) Urine Protein (Neg-Trace) mg/dL Urine Glucose (UA) (Negative) mg/dL Urine Ketones (Negative) mg/dL Urine Blood (Negative) Urine Nitrite (Negative) Ur Leukocyte Esterase (Negative) Stool Occult Blood (NEGATIVE) Influenza Type A (PCR) (Negative) Influenza Type B (PCR) (Negative) RSV RNA Qual (PCR) (Negative) SARS-CoV-2 RNA (RT-PCR) (Negative) 11/27/23 11/27/23 11/27/23 Range/Units 08:56 09:49 10:02 WBC (4.8-10.8) X10*3/uL RBC (4.60-5.80) X10*6/uL Hgb (14.0-18.0) g/dl Hct (42.0-52.0) % MCV (80.0-98.0) fL MCH (27.0-33.0) pg MCHC (31.0-36.0) g/dl RDW (11.0-16.0) % Plt Count (160-400) X10*3/uL MPV (9.4-12.4) fL Immature Gran % (Auto) (0.0-0.4) % Neut % (Auto) (45-73) % Lymph % (Auto) (20-40) % Holmes % (Auto) (2-11) % Eos % (Auto) (0-4) % Baso % (Auto) (0-2) % Lymph # (Auto) (1.2-4.9) X10*3/uL [place] # (Auto) (0.1-1.2) X10*3/uL Eos # (Auto) (0.0-0.4) X10*3/uL Baso # (Auto) (0.0-0.2) X10*3/uL Abs Immat Gran (auto) (0.00-0.03) X10*3/uL Absolute Neuts (auto) (2.0-8.3) x10*3/uL Absolute Nucleated RBC (0.0-0.012) X10*3/uL Nucleated RBC % (auto) (0.0-0.2) /100WBC PT 14.3 H (11.1-13.3) SEC INR 1.2 H (0.9-1.1) D-Dimer High Sensitivty 623 NG/ML Sodium (135-145) mmol/L Potassium (3.3-5.1) mmol/L Chloride (96-108) mmol/L Carbon Dioxide (22-29) mmol/L Anion Gap (12-20) BUN (9-16) mg/dL Creatinine (0.5-1.4) mg/dL Estim Creat Clear Calc Estimated GFR POC Glucose (60-115) mg/dL Random Glucose (60-115) mg/dL Calcium (8.4-10.2) mg/dL Magnesium (1.6-2.6) mg/dL Total Bilirubin (0.0-1.0) mg/dL AST (5-37) U/L ALT (0-40) U/L Alkaline Phosphatase (39-117) U/L Total Creatine Kinase (38-174) U/L Troponin I High Sens 1155.5 H* (<3.5-35.0) ng/L B-Natriuretic Peptide (<100) pg/mL Total Protein (6.5-8.0) g/dL Albumin (3.5-5.0) g/dL Lipase (8-78) U/L Urine Color Yellow Urine Appearance Clear Urine pH 5.5 (5.0-9.0) Ur Specific [place] 1.020 (1.005-1.025) Urine Protein Negative (Neg-Trace) mg/dL Urine Glucose (UA) 500 H (Negative) mg/dL Urine Ketones Negative (Negative) mg/dL Urine Blood Negative (Negative) Urine Nitrite Negative (Negative) Ur Leukocyte Esterase Negative (Negative) Stool Occult Blood NEGATIVE (NEGATIVE) Influenza Type A (PCR) NEGATIVE (Negative) Influenza Type B (PCR) NEGATIVE (Negative) RSV RNA Qual (PCR) NEGATIVE (Negative) SARS-CoV-2 RNA (RT-PCR) NEGATIVE (Negative) Independent Interpretation I performed an independent interpretation of an: EKG, Plain X-Ray and CT Scan (no ICH, no PE) Interpretation: Rate: 70 Rhythm: NSR Saxton: left Normal P waves. Normal OZZY. RBBB ST T wave : inverted t waves V1, V2, V3, V4 no DOMINICK qTC: 466 prior studies: no prior The study has been interpreted contemporaneously by me. . Radiology Impression Discussion of test interpretation with radiology: I have reviewed the radiologist's reading. Independent Historian Clinical information obtained from an independent historian. History obtained from or confirmed by: EMS and Other (daughter) External Record Review External record reviewed: Inpatient record Critical Care Time Critical Care Time Critical Care Time: Yes Total Critical Care Time: 60 Attestation: repeat labs, review of records, IV heparin gtt, NSTEMI management, family discussion, consult I attest to this time spent taking care of the patient Discharge Plan Discharge Clinical Impression: Non-ST elevation CA (NSTEMI) Acute CHF Qualifiers: Heart failure type: unspecified Qualified Code(s): I50.9 - Heart failure, unspecified Patient Disposition: Admitted As Inpatient Print Language: Luxembourgish
[2023-11-27 07:47] LABS: Lipase 6 U/L (8-78); Magnesium 1.8 mg/dL (1.6-2.6)
[2023-11-27 07:49] LABS: Alanine Aminotransferase 17 U/L (0-40); Albumin Level 3.6 g/dL (3.5-5.0); Alkaline Phosphatase 85 U/L (39-117); Anion Gap 10 (12-20); Aspartate Amino Transferase 17 U/L (5-37); Bilirubin Total 0.7 mg/dL (0.0-1.0); Blood Urea Nitrogen 21 mg/dL (9-16); Calcium 9.1 mg/dL (8.4-10.2); Carbon Dioxide 31 mmol/L (22-29); Chloride 105 mmol/L (96-108); Estimated Glomerular Filt Rate > 60; Glucose Random 225 mg/dL (60-115); Sodium 142 mmol/L (135-145); Total Protein 6.6 g/dL (6.5-8.0)
[2023-11-27 08:32] LABS: B Type Natriuretic Peptide 905 pg/mL (<100)
[2023-11-27 08:59] LABS: Glucose, Whole Blood 201 mg/dL (60-115)
[2023-11-27 09:06] LABS: INTERNATIONAL NORM RATIO 1.2 (0.9-1.1); Prothrombin Time 14.3 SEC (11.1-13.3)
[2023-11-27 09:09] LABS: D Dimer High Sensitivity 623 NG/ML
--- NOTE | 2023-11-27 09:11 | PC.NURSE ---
Pt to CT Scan.
[2023-11-27 09:24] LABS: Troponin-I High Sensitivity 1155.5 ng/L (<3.5-35.0)
[2023-11-27] MEDS: iohexoL 350 MG/ML 100 ML INFUS..BTL 65 ML IV (09:37)
--- NOTE | 2023-11-27 09:50 | PC.NURSE ---
Pt straight catheterized for urine sample - tolerated well, slept through the procedure. Urine sent to lab.
[2023-11-27 09:55] LABS: Appearance Urine Clear; Color Urine Yellow; Glucose Urine UA 500 mg/dL (Negative); Leukocyte Esterase Urine Negative (Negative); Nitrite Urine Negative (Negative); PH 5.5 (5.0-9.0); Urine Blood Negative (Negative); Urine Ketones Negative (Negative); Urine Protein Negative (Neg-Trace)
[2023-11-27 10:09] LABS: OBS Int Ctl Valid YES; OBS1 NEGATIVE (NEGATIVE)
[2023-11-27 10:32] LABS: Influenza A PCR NEGATIVE (Negative); Influenza B PCR NEGATIVE (Negative); Resp Syncy Virus RNA Qual PCR NEGATIVE (Negative); SARS COV2 PCR INHOUSE NEGATIVE (Negative)
--- NOTE | 2023-11-27 10:53 | PM.CNCAR ---
History of Present Illness History of Present Illness Date of Service: 11/27/23 Requesting physician: Robert Crump Chief complaint: NSTEMI Narrative: [age] year gentleman background history of CVA, and dementia who is presenting with change in mental status and confusion. EKG done in the ER showed precordial T-wave inversions. His high sensitive troponins are 1149. The patient has dementia and is denying any symptoms. He is pleasantly confused and is denying any symptoms currently. No reported bleeding recently. He was started on heparin drip by the emergency department after discussion. He was taking Plavix previously and aspirin was given to the patient. Blood pressure is well controlled. [facility] Past Medical History Medical History (Updated 11/27/23 @ 12:59 by BREANNE Leach) Paroxysmal A-fib Dementia BPH (benign prostatic hyperplasia) Glaucoma Intracranial hemorrhage Stroke HLD (hyperlipidemia) HTN (hypertension) Diabetes Social History Social History Household Members: Spouse Housing: House Do you presently have visiting nurse or other home services: No Alcohol intake: former Advance Directives: Yes Advance Directives Information Provided: Yes Advance Directives on File: No Do you have a plan to hurt others: No Plan service: No Current occupational status: retired Meds Allergies Allergy/AdvReac Type Severity Reaction Status Date / Time No Known Allergies Allergy Verified 11/27/23 06:54 Active Medications: Current Medications Heparin Sodium (Porcine) (Heparin Sodium,Porcine 5,000 Unit/Ml Vial) 2,600 unit 40 unit/kg (2600 unit) IVPUSH PROTOCOL BOLUS PRN PRN Reason: 40 unit/kg - Heparin Protocol Heparin Sodium (Porcine) (Heparin Sodium,Porcine 5,000 Unit/Ml Vial) 2,600 unit 40 unit/kg (2600 unit) IVPUSH PROTOCOL BOLUS PRN; Protocol PRN Reason: 40 unit/kg - Heparin Protocol Heparin Sodium (Porcine) (Heparin Sodium,Porcine 5,000 Unit/Ml Vial) 5,200 unit 80 unit/kg (5200 unit) IVPUSH PROTOCOL BOLUS PRN; Protocol PRN Reason: 80 unit/kg - Heparin Protocol Heparin Sodium/Sodium Chloride (Heparin Sodium,Porcine/1/2ns) 25,000 unit in 250 mls @ 0 mls/hr IVCONT .Q0M MYRA; Protocol Home Medications ?Medication ?Instructions ?Recorded ?Confirmed ?Last Taken ?Type amlodipine 5 mg tablet 5 mg PO DAILY 05/04/20 11/27/23 11/26/23 History atorvastatin 40 mg tablet 40 mg PO DAILY 05/04/20 11/27/23 11/26/23 History brimonidine 0.2 %-timolol 0.5 % 1 drp ophthalmic (eye) DAILY 05/04/20 11/27/23 11/26/23 History eye drops (Combigan) clopidogrel 75 mg tablet 75 mg PO DAILY 05/04/20 11/27/23 11/26/23 History dorzolamide 2 % eye drops 1 drp ophthalmic (eye) BID 05/04/20 11/27/23 11/26/23 History finasteride 5 mg tablet 5 mg PO DAILY 05/04/20 11/27/23 11/26/23 History insulin glargine 100 unit/mL 8 unit subcut QAM 05/04/20 11/27/23 11/26/23 History subcutaneous solution (Lantus U-100 Insulin) insulin glargine 100 unit/mL 11 unit subcut BEDTIME 05/04/20 11/27/23 11/26/23 History subcutaneous solution (Lantus U-100 Insulin) insulin lispro 100 unit/mL See Protocol subcut TIDWM 05/04/20 11/27/23 11/26/23 History subcutaneous solution (Humalog U-100 Insulin) oxybutynin chloride 5 mg tablet 1 tab PO DAILY 05/04/20 11/27/23 11/26/23 History sertraline 50 mg tablet 1 tab PO DAILY 05/04/20 11/27/23 11/26/23 History acetaminophen 500 mg capsule 500 mg PO Q6H PRN Pain 11/27/23 11/27/23 11/26/23 History (Mapap (acetaminophen)) cholecalciferol (vitamin D3) 125 125 mcg PO DAILY 11/27/23 11/27/23 11/26/23 History mcg (5,000 unit) capsule lisinopril 20 mg tablet 20 mg PO DAILY 11/27/23 11/27/23 11/26/23 History Physical Exam Vital Signs: Vital Signs: Last Vital Signs Temp 98.6 F 11/27/23 06:56 Pulse 66 11/27/23 10:13 Resp 18 11/27/23 10:13 BP 132/61 11/27/23 10:13 Pulse Ox 95 11/27/23 10:13 O2 Del Method Room Air 11/27/23 10:13 BMI result Body Mass Index 19.9 GENERAL APPEARANCE: in no acute distress, pleasant. NECK: no carotid bruit, no jugular venous distention. SKIN: no suspicious lesions, warm and dry. HEART: no murmurs, regular rate and rhythm. LUNGS: clear to auscultation bilaterally. ABDOMEN: soft, nontender. EXTREMITIES: no edema. PERIPHERAL PULSES: equal. NEUROLOGIC: Confused. Following simple commands and answering questions. Objective Labs and Meds 11/27/23 07:00 11/27/23 07:23 Lab results: Laboratory Results - last 24 hr 11/27/23 11/27/23 11/27/23 07:00 07:23 08:55 WBC 6.2 RBC 3.48 L D Hgb 10.8 L Hct 31.4 L D MCV 90.2 MCH 31.0 MCHC 34.4 RDW 12.5 Plt Count 185 MPV 10.8 Immature Gran % (Auto) 0.3 Neut % (Auto) 68.6 Lymph % (Auto) 17.4 L [place] % (Auto) 8.4 Eos % (Auto) 4.8 H Baso % (Auto) 0.5 Lymph # (Auto) 1.1 L [place] # (Auto) 0.5 Eos # (Auto) 0.3 Baso # (Auto) 0.0 Abs Immat Gran (auto) 0.02 Absolute Neuts (auto) 4.3 Absolute Nucleated RBC 0.000 Nucleated RBC % (auto) 0.0 PT INR D-Dimer High Sensitivty Sodium 142 Potassium 4.0 Chloride 105 Carbon Dioxide 31 H Anion Gap 10 L BUN 21 H Creatinine 0.89 Estim Creat Clear Calc 56.0 Estimated GFR > 60 POC Glucose 201 H Random Glucose 225 H Calcium 9.1 Magnesium 1.8 Total Bilirubin 0.7 AST 17 ALT 17 Alkaline Phosphatase 85 Total Creatine Kinase 37 L Troponin I High Sens 1147.0 H* B-Natriuretic Peptide 905 H Total Protein 6.6 Albumin 3.6 Lipase 6 L Urine Color Urine Appearance Urine pH Ur Specific [place] Urine Protein Urine Glucose (UA) Urine Ketones Urine Blood Urine Nitrite Ur Leukocyte Esterase Stool Occult Blood Influenza Type A (PCR) Influenza Type B (PCR) RSV RNA Qual (PCR) SARS-CoV-2 RNA (RT-PCR) 11/27/23 11/27/23 11/27/23 08:56 09:49 10:02 WBC RBC Hgb Hct MCV MCH MCHC RDW Plt Count MPV Immature Gran % (Auto) Neut % (Auto) Lymph % (Auto) [place] % (Auto) Eos % (Auto) Baso % (Auto) Lymph # (Auto) [place] # (Auto) Eos # (Auto) Baso # (Auto) Abs Immat Gran (auto) Absolute Neuts (auto) Absolute Nucleated RBC Nucleated RBC % (auto) PT 14.3 H INR 1.2 H D-Dimer High Sensitivty 623 Sodium Potassium Chloride Carbon Dioxide Anion Gap BUN Creatinine Estim Creat Clear Calc Estimated GFR POC Glucose Random Glucose Calcium Magnesium Total Bilirubin AST ALT Alkaline Phosphatase Total Creatine Kinase Troponin I High Sens 1155.5 H* B-Natriuretic Peptide Total Protein Albumin Lipase Urine Color Yellow Urine Appearance Clear Urine pH 5.5 Ur Specific [place] 1.020 Urine Protein Negative Urine Glucose (UA) 500 H Urine Ketones Negative Urine Blood Negative Urine Nitrite Negative Ur Leukocyte Esterase Negative Stool Occult Blood NEGATIVE Influenza Type A (PCR) NEGATIVE Influenza Type B (PCR) NEGATIVE RSV RNA Qual (PCR) NEGATIVE SARS-CoV-2 RNA (RT-PCR) NEGATIVE Imaging Radiologist's impression: Impressions Chest X-Ray 11/27/23 07:45 IMPRESSION: Mild bilateral interstitial prominence which may be secondary to mild edema or atypical viral infection. Head CT 11/27/23 09:44 IMPRESSION: No acute intracranial findings. Generalized atrophy, nonspecific periventricular white matter disease and old bilateral thalamic and basal ganglia lacunar infarcts similar to previous exam. Chest CTA 11/27/23 09:45 IMPRESSION: * Atherosclerotic disease of coronary arteries and thoracic aorta without aortic aneurysm. * No evidence of pulmonary embolism. * Interstitial pulmonary edema, trace pleural effusions and atelectasis in dependent aspect of each lower lobe. * Small patchy and hazy opacities in the posterior right upper lobe and adjacent right middle lobe are nonspecific. It is uncertain if this is from mild alveolar edema or pneumonia. Assessment and Plan (1) Non-ST elevation PR (NSTEMI): Status: Acute Plan Pleasant 83-year-old gentleman presenting with confusion and precordial T-wave inversions. He has ruled in for NSTEMI. He is denying any symptoms currently. Given dementia and previous stroke-I think he should be medically managed. Continue heparin drip for 48 hours with close monitoring of hemoglobin. Continue aspirin Plavix. His ECHO is showing wall motion abnormality in the LAD territory. I will review it in more detail to see if there are any features consistent with takotsubo cardiomyopathy. In any case currently treatment is medical with heparin for 48 hours. Thank you for allowing me to participate in the care of your patient. Please feel free to contact me if you have any questions. Procedures Date of Service Date of Service: 11/27/23
[2023-11-27] MEDS: Aspirin 81 MG TAB.CHEW PO (11:10)
[2023-11-27] MEDS: Furosemide 20 MG/2 ML VIAL 10 MG IVPUSH (11:10)
--- NOTE | 2023-11-27 11:14 | PM.IMHP ---
History of Present Illness Date of Service: 11/27/23 Attending physician on admission: [facility] Chief Complaint: Altered mental status Pt is an 83-year-old Citizen Of The [place]-speaking male with a PMH significant for?HTN, HLD, insulin-dependent type 2 diabetes, hx of CVAs, and paroxysmal AFib s/p ablation 7 years prior who presents to the ED from home with lethargy and altered mental status. Patient has advanced dementia at baseline, lives with his spouse who takes care of him. Patient has been weaker and more tired for the past week. Last night noted patient was lethargic and more confused than baseline. Normally patient wakes the up 3 times at night to use the bathroom, though last night did not wake once and was incontinent of urine in the bed. This morning patient was difficult to arouse, not responding like normal, and could not move to get out of bed. Patient himself is alert and oriented to self only and incapable of supplement in HPI or ros. In the ED pt's vital signs stable and largely WNL. Labs were significant for H&H 10.8/31.4, elevated D-dimer of 623, initial troponin 1147.0 with repeat 1155.5, and BNP 905. No leukocytosis. No significant electrolyte abnormalities. Renal function baseline. Hepatic function baseline. UA negative for UTI. Stool negative for occult blood. Tested negative for flu, RSV, COVID. CXR showed mild bilateral interstitial prominence which may be secondary to mild edema or atypical viral infection. CT of head showed no acute intracranial findings, but showed general atrophy, nonspecific periventricular white matter disease, and chronic bilateral thalamic and basal ganglia lacunar infarcts similar to previous. CTA of chest found no evidence of pulmonary embolism, but showed atherosclerotic disease of coronary arteries and thoracic aorta without aortic aneurysm, interstitial pulmonary edema with trace pleural effusions and atelectasis bilaterally, and small patchy and hazy opacities in posterior right upper lobe and adjacent right middle lobe nonspecific. ?EKG demonstrated normal sinus rhythm with RBBB, left anterior fascicular block, and T-wave inversions in anterioseptal leads. Pt was treated with furosemide 10 mg IV, aspirin, and started on heparin drip. Pt will be admitted to the hospital for treatment and further evaluation of NSTEMI. Review of Systems Review of Systems: Unable to obtain due to patient's mentation [facility] Medical History (Updated 11/27/23 @ 12:59 by BREANNE Leach) Paroxysmal A-fib Dementia BPH (benign prostatic hyperplasia) Glaucoma Intracranial hemorrhage Stroke HLD (hyperlipidemia) HTN (hypertension) Diabetes Social History Household Members: Children Housing: House Do you presently have visiting nurse or other home services: No Alcohol intake: former Patient Tobacco Use Status: Never used Tobacco Advance Directives Date on File: 11/27/23 service: No Current occupational status: retired [employer] Allergies Allergy/AdvReac Type Severity Reaction Status Date / Time No Known Allergies Allergy Verified 11/27/23 06:54 Active Medications: Current Medications Heparin Sodium (Porcine) (Heparin Sodium,Porcine 5,000 Unit/Ml Vial) 2,500 unit 40 unit/kg (2500 unit) IVPUSH PROTOCOL BOLUS PRN; Protocol PRN Reason: 40 unit/kg - Heparin Protocol Heparin Sodium (Porcine) (Heparin Sodium,Porcine 5,000 Unit/Ml Vial) 5,000 unit 80 unit/kg (5000 unit) IVPUSH PROTOCOL BOLUS PRN; Protocol PRN Reason: 80 unit/kg - Heparin Protocol Heparin Sodium/Sodium Chloride (Heparin Sodium,Porcine/1/2ns) 25,000 unit in 250 mls @ 0 mls/hr IVCONT .Q0M MYRA; Protocol Home Medications ?Medication ?Instructions ?Recorded ?Confirmed ?Last Taken ?Type amlodipine 5 mg tablet 5 mg PO DAILY 05/04/20 11/27/23 11/26/23 History atorvastatin 40 mg tablet 40 mg PO DAILY 05/04/20 11/27/23 11/26/23 History brimonidine 0.2 %-timolol 0.5 % 1 drp ophthalmic (eye) DAILY 05/04/20 11/27/23 11/26/23 History eye drops (Combigan) clopidogrel 75 mg tablet 75 mg PO DAILY 05/04/20 11/27/23 11/26/23 History dorzolamide 2 % eye drops 1 drp ophthalmic (eye) BID 05/04/20 11/27/23 11/26/23 History finasteride 5 mg tablet 5 mg PO DAILY 05/04/20 11/27/23 11/26/23 History insulin glargine 100 unit/mL 8 unit subcut QAM 05/04/20 11/27/23 11/26/23 History subcutaneous solution (Lantus U-100 Insulin) insulin glargine 100 unit/mL 11 unit subcut BEDTIME 05/04/20 11/27/23 11/26/23 History subcutaneous solution (Lantus U-100 Insulin) insulin lispro 100 unit/mL See Protocol subcut TIDWM 05/04/20 11/27/23 11/26/23 History subcutaneous solution (Humalog U-100 Insulin) oxybutynin chloride 5 mg tablet 1 tab PO DAILY 05/04/20 11/27/23 11/26/23 History sertraline 50 mg tablet 1 tab PO DAILY 05/04/20 11/27/23 11/26/23 History acetaminophen 500 mg capsule 500 mg PO Q6H PRN Pain 11/27/23 11/27/23 11/26/23 History (Mapap (acetaminophen)) cholecalciferol (vitamin D3) 125 125 mcg PO DAILY 11/27/23 11/27/23 11/26/23 History mcg (5,000 unit) capsule lisinopril 20 mg tablet 20 mg PO DAILY 11/27/23 11/27/23 11/26/23 History Physical Exam Vital Signs and Narrative: Vital Signs: Last Vital Signs Temp 98.6 F 11/27/23 06:56 Pulse 66 11/27/23 10:13 Resp 18 11/27/23 10:13 BP 132/61 11/27/23 10:13 Pulse Ox 95 11/27/23 10:13 O2 Del Method Room Air 11/27/23 10:13 BMI result Body Mass Index 19.9 Constitutional: Alert, pleasantly confused. In no acute distress. Mental Status: Oriented to person only, not to place, time, or situation. Eyes: Pupils are equal, round, and reactive to light. Ear, Nose, and Throat: Oropharynx clear, mucous membranes moist. Ears and nose without deformities. Trachea midline. Respiratory: Clear to auscultation bilaterally. No wheezing, rales, or rhonchi. Cardiovascular: S1, S2 regular. No murmurs, rubs, or gallops. Gastrointestinal: Abdomen soft, non-tender, non-distended. Neurologic: Cranial nerves II-XII are grossly intact bilaterally. No focal neurological deficits. Moves all extremities spontaneously. Skin: Warm, dry. Extremities: No edema. Psychiatric: Pleasantly confused. Results Labs 11/27/23 07:00 11/27/23 07:23 Labs: Laboratory Results - last 24 hr 11/27/23 11/27/23 11/27/23 07:00 07:23 08:55 MCV 90.2 MCH 31.0 MCHC 34.4 RDW 12.5 Plt Count 185 MPV 10.8 Immature Gran % (Auto) 0.3 Neut % (Auto) 68.6 Lymph % (Auto) 17.4 L [place] % (Auto) 8.4 Eos % (Auto) 4.8 H Baso % (Auto) 0.5 Lymph # (Auto) 1.1 L [place] # (Auto) 0.5 Eos # (Auto) 0.3 Baso # (Auto) 0.0 Abs Immat Gran (auto) 0.02 Absolute Neuts (auto) 4.3 Absolute Nucleated RBC 0.000 Nucleated RBC % (auto) 0.0 PT INR D-Dimer High Sensitivty Anion Gap 10 L Estim Creat Clear Calc 56.0 Estimated GFR > 60 POC Glucose 201 H Random Glucose 225 H Calcium 9.1 Magnesium 1.8 Total Bilirubin 0.7 AST 17 ALT 17 Alkaline Phosphatase 85 Total Creatine Kinase 37 L Troponin I High Sens 1147.0 H* B-Natriuretic Peptide 905 H Total Protein 6.6 Albumin 3.6 Lipase 6 L Urine Color Urine Appearance Urine pH Ur Specific [place] Urine Protein Urine Glucose (UA) Urine Ketones Urine Blood Urine Nitrite Ur Leukocyte Esterase Stool Occult Blood Influenza Type A (PCR) Influenza Type B (PCR) RSV RNA Qual (PCR) SARS-CoV-2 RNA (RT-PCR) 11/27/23 11/27/23 11/27/23 08:56 09:49 10:02 MCV MCH MCHC RDW Plt Count MPV Immature Gran % (Auto) Neut % (Auto) Lymph % (Auto) [place] % (Auto) Eos % (Auto) Baso % (Auto) Lymph # (Auto) [place] # (Auto) Eos # (Auto) Baso # (Auto) Abs Immat Gran (auto) Absolute Neuts (auto) Absolute Nucleated RBC Nucleated RBC % (auto) PT 14.3 H INR 1.2 H D-Dimer High Sensitivty 623 Anion Gap Estim Creat Clear Calc Estimated GFR POC Glucose Random Glucose Calcium Magnesium Total Bilirubin AST ALT Alkaline Phosphatase Total Creatine Kinase Troponin I High Sens 1155.5 H* B-Natriuretic Peptide Total Protein Albumin Lipase Urine Color Yellow Urine Appearance Clear Urine pH 5.5 Ur Specific [place] 1.020 Urine Protein Negative Urine Glucose (UA) 500 H Urine Ketones Negative Urine Blood Negative Urine Nitrite Negative Ur Leukocyte Esterase Negative Stool Occult Blood NEGATIVE Influenza Type A (PCR) NEGATIVE Influenza Type B (PCR) NEGATIVE RSV RNA Qual (PCR) NEGATIVE SARS-CoV-2 RNA (RT-PCR) NEGATIVE Imaging Radiologist's Impressions: Impressions Chest X-Ray 11/27/23 07:45 IMPRESSION: Mild bilateral interstitial prominence which may be secondary to mild edema or atypical viral infection. Head CT 11/27/23 09:44 IMPRESSION: No acute intracranial findings. Generalized atrophy, nonspecific periventricular white matter disease and old bilateral thalamic and basal ganglia lacunar infarcts similar to previous exam. Chest CTA 11/27/23 09:45 IMPRESSION: * Atherosclerotic disease of coronary arteries and thoracic aorta without aortic aneurysm. * No evidence of pulmonary embolism. * Interstitial pulmonary edema, trace pleural effusions and atelectasis in dependent aspect of each lower lobe. * Small patchy and hazy opacities in the posterior right upper lobe and adjacent right middle lobe are nonspecific. It is uncertain if this is from mild alveolar edema or pneumonia. Assessment and Plan (1) Non-ST elevation [place] (NSTEMI): Status: Acute Plan Pt is an 83-year-old Citizen [place]-speaking male with a PMH significant for?HTN, HLD, insulin-dependent type 2 diabetes, hx of CVAs, and paroxysmal AFib s/p ablation 7 years prior who presents to the ED from home with lethargy and altered mental status. Pt will be admitted to the hospital for treatment and further evaluation of NSTEMI. Acute NSTEMI Initial troponin 1147.0 with repeat 1155.5 Pt with advanced dementia at baseline, not complaining of chest pain/pressure EKG with T-wave inversions in anteroseptal leads Started on on heparin drip, continue Aspirin 81 mg daily, metoprolol 12.5 mg, atorvastatin 40 mg Echocardiogram Cardiology consult Monitor on telemetry Question of CHF Patient with elevated BNP, as well as interstitial pulmonary edema and trace pleural effusions on CTA Likely in the setting of NSTEMI Patient received Lasix 10 mg IV in the ED Clinically patient looks euvolemic Treat NSTEMI as above Will hold on additional Lasix pending Cardiology input HTN Continue amlodipine, lisinopril hx of CVA/HLD Continue statin, Plavix Insulin-dependent type 2 diabetes Sliding-scale insulin, Lantus Diabetic diet BPH Continue tamsulosin DNR/DNI Attending:?Dr. Crump DVT Prophylaxis: On heparin drip Pt will require a hospitalization of at least two nights for treatment of treatment and further evaluation of NSTEMI. Patient is currently being treated with a heparin drip and will require hospitalization for close monitoring of labs and cardiac function, as well as specialist consultation with Cardiology. Quality Stroke Does the patient have a stroke diagnosis?: No VTE Prior VTE?: No VTE Risk Level:: Medical - moderate - high VTE Device Contraindication: Treatment Not Indicated VTE Drug Contraindication: N/A - Med Ordered
[2023-11-27] MEDS: Heparin Sodium,Porcine 5,000 UNIT/ML VIAL 3800 UNIT IVPUSH (11:21)
[2023-11-27] MEDS: Heparin Sodium,Porcine/1/2NS 25,000 UNIT/250 ML IV.SOLN 7.56 UNIT IVCONT (11:21)
--- NOTE | 2023-11-27 11:29 | PC.NURSE ---
Heparin drip/bolus initiated per order.
[2023-11-27 11:51] LABS: Glucose, Whole Blood 186 mg/dL (60-115)
[2023-11-27 12:09] LABS: PTT Heparin Drip 26.4 SEC (53-77.9)
--- NOTE | 2023-11-27 13:48 | PHA.MEDREC ---
Pharmacy Consult ? Medication Reconciliation Pharmacy has completed the medication reconciliation. Was able to confirm medication with who is presented in the ED as well and their daughter Shahla who's at moms bedside. The was able to confirm the lantus that her is on. She said he gets Lantus 100units; 8 units sub AM and 11 units sub BEDTIME. The states she is not always compliant with giving it to him some mornings depending on what his sugar levels are reading at. She also stated he gets Humalog 100un originally the directions were QIDACHS but the states she is doing TID before breakfast, lunch and supper.
--- NOTE | 2023-11-27 13:57 | PC.NURSE ---
Kitchen called to order lunch tray for patient.
[2023-11-27 14:15] LABS: Glucose, Whole Blood 186 mg/dL (60-115)
[2023-11-27 17:36] LABS: Glucose, Whole Blood 185 mg/dL (60-115)
[2023-11-27] MEDS: Insulin Lispro 100 UNIT/ML 3 ML VIAL SUBCUT ×2 (17:46→20:27)
[2023-11-27] MEDS: 0.9 % Sodium Chloride Flush 3 ML SYRINGE IVFLUSH ×2 (17:47→20:29)
--- NOTE | 2023-11-27 18:32 | PC.NURSE ---
Pt arrived to unit from ED slide to bed with staff assist. Oriented to self only understands minimal Croatian daughter at bedside. LSCTA no SOB or CP noted NSR on tele with BBB. No pain or discomfort noted. Skin intact. [place] cath in place with punch colored urine with some sediment, Dr Crump notified. Heparin drip infusing at 12 units per hour. PTT was ordered for 1730 then changed to 1801 in system. 1830 call placed to phlebotomy and lab to inform that PTT had not been drawn yet. Dr Crump notifed and aware. Bed alarm on lowest locked position camera for safety.
[2023-11-27 18:54] LABS: PTT Heparin Drip 51.1 SEC (53-77.9)
[2023-11-27 20:15] LABS: Glucose, Whole Blood 177 mg/dL (60-115)
[2023-11-27] MEDS: Heparin Sodium,Porcine 5,000 UNIT/ML VIAL 2500 UNIT IVPUSH (20:22)
[2023-11-27] MEDS: Insulin Glargine,Hum.rec.anlog 100 UNIT/ML 10 ML VIAL 8 UNIT SUBCUT (20:27)
[2023-11-27] MEDS: Metoprolol Tartrate 12.5 MG HALFTAB PO (20:29)
[2023-11-27] MEDS: Dorzolamide HCl 2 % Ophth Sol 10 ML DRPBTL 1 DROP EYE-BOTH (21:26)
[2023-11-28 00:03] VITALS: TEMP 36.8
[2023-11-28 02:42] LABS: PTT Heparin Drip 66.5 SEC (53-77.9)
--- NOTE | 2023-11-28 02:45 | ECG_ITS ---
Test Reason : chest pain Blood Pressure : / mmHG Vent. Rate : 074 BPM Atrial Rate : 074 BPM P-R Int : 200 ms QRS Dur : 130 ms QT Int : 436 ms P-R-T Axes : 044 -77 092 degrees QTc Int : 483 ms Normal sinus rhythm Right bundle branch block Left anterior fascicular block Bifascicular block Anteroseptal infarct (cited on or before 27-NOV-2023) T wave abnormality, consider lateral ischemia Abnormal ECG When compared with ECG of 27-NOV-2023 07:26, Serial changes of Anteroseptal infarct Present Referred By: Adam Crawford Electronically Signed By:HANK POP MD
[2023-11-28 07:04] LABS: Hematocrit 29.9 % (42.0-52.0); Hemoglobin 10.2 g/dl (14.0-18.0); Mean Corpuscular HGB Conc 34.1 g/dl (31.0-36.0); Mean Corpuscular Hemoglobin 30.6 pg (27.0-33.0); Mean Corpuscular Volume 89.8 fL (80.0-98.0); Mean Platelet Volume 10.9 fL (9.4-12.4); Platelet Count 185 X10*3/uL (160-400); Red Blood Count 3.33 X10*6/uL (4.60-5.80); Red Cell Distribution Width 12.3 % (11.0-16.0); White Blood Count 7.5 X10*3/uL (4.8-10.8)
[2023-11-28 07:08] LABS: INTERNATIONAL NORM RATIO 1.3 (0.9-1.1); Prothrombin Time 16.2 SEC (11.1-13.3)
[2023-11-28 07:11] LABS: PTT Heparin Drip 56.9 SEC (53-77.9)
--- NOTE | 2023-11-28 07:21 | PC.NURSE ---
PTT drawn too early, PTT came back therapeutic 56.9, new PTT ordered for correct time. no rate changes or adjustments to drip. nursing supervisor coffee aware.
[2023-11-28 07:34] LABS: Glucose, Whole Blood 166 mg/dL (60-115)
[2023-11-28 07:46] LABS: Anion Gap 16 (12-20); Blood Urea Nitrogen 20 mg/dL (9-16); Calcium 8.9 mg/dL (8.4-10.2); Carbon Dioxide 25 mmol/L (22-29); Chloride 103 mmol/L (96-108); Cholesterol 111 mg/dL (<200); Creatinine Clr Calc Pharmacy 51.8; Estimated Glomerular Filt Rate > 60; Glucose Random 160 mg/dL (60-115); HDL Cholesterol 43 mg/dL (>40); LDL Cholesterol Calculated 58 mg/dL (<100); Potassium 3.4 mmol/L (3.3-5.1); Sodium 141 mmol/L (135-145); Triglycerides 51 mg/dL (<150)
[2023-11-28 08:00] VITALS: BP 114/56; PULSE 68; RESP 20; TEMP 37.1; O2SAT 96
[2023-11-28] MEDS: Metoprolol Tartrate 12.5 MG HALFTAB PO ×2 (08:42→20:39)
[2023-11-28] MEDS: Clopidogrel Bisulfate 75 MG TABLET PO (08:42)
[2023-11-28] MEDS: Insulin Lispro 100 UNIT/ML 3 ML VIAL SUBCUT ×3 (08:43→20:39)
[2023-11-28] MEDS: oxyBUTYnin chloride 5 MG TABLET G-TUBE (08:43)
[2023-11-28] MEDS: Atorvastatin Calcium 40 MG TABLET PO (08:43)
[2023-11-28] MEDS: Sertraline HCL 50 MG TABLET PO (08:43)
[2023-11-28] MEDS: amLODIPine Besylate 5 MG TABLET PO (08:43)
[2023-11-28] MEDS: Aspirin Enteric Coated 81 MG TABLET.DR PO (08:43)
[2023-11-28] MEDS: 0.9 % Sodium Chloride Flush 3 ML SYRINGE IVFLUSH ×3 (08:44→20:39)
[2023-11-28] MEDS: Dorzolamide HCl 2 % Ophth Sol 10 ML DRPBTL 1 DROP EYE-BOTH ×2 (08:51→20:38)
[2023-11-28 09:01] LABS: PTT Heparin Drip 62.5 SEC (53-77.9)
[2023-11-28] MEDS: Finasteride 5 MG TABLET PO (09:10)
--- NOTE | 2023-11-28 09:24 | MHC.CM.PN ---
Patient has Advanced Dementia and is her with AMS; CM spoke with Daughter/HCP/Shahla @ [phone] and addressed IMM with her (original will be mailed certified letter to Shahla and a copy has been placed on the chart). Patient lives in a house with his /Caregiver and he uses a walker and transport chair to assist with mobility. Patient has a [employer] through [facility] M-F 8AM-1:30PM and home/resume said services is the goal. CM has initiated and will follow for dc planning. PCP is Dr. Geoff Seymour.
[2023-11-28] MEDS: Heparin Sodium,Porcine/1/2NS 25,000 UNIT/250 ML IV.SOLN 8.82 UNIT IVCONT (10:29)
--- NOTE | 2023-11-28 11:11 | HO.PM.IMPN ---
Subjective Subjective Date of Service: 11/28/23 Interval History: no new events Review of Systems Review of Systems: Yes Unobtainable due to mental condition Physical Exam Vital Signs: Vital Signs: Last Vital Signs Temp 98.8 F 11/28/23 08:00 Pulse 68 11/28/23 08:00 Resp 20 11/28/23 08:00 BP 114/56 L 11/28/23 08:00 Pulse Ox 96 11/28/23 08:00 O2 Del Method Room Air 11/28/23 08:00 BMI result Body Mass Index 19.1 lethargic, not talking, lungs clear, heart sounds normal Objective Data Active Medications Acetaminophen (Acetaminophen 325 Mg Tablet) 650 mg PO Q6H PRN PRN Reason: Pain, Mild (Pain Scale 1-3), fever or headache Amlodipine Besylate (Amlodipine Besylate 5 Mg Tablet) 5 mg PO DAILY [facility]; Protocol Last Admin: 11/28/23 08:43 Dose: 5 mg Documented By: SUMEET Aspirin (Aspirin Enteric Coated 81 Mg Tablet.Dr) 81 mg PO DAILY [facility] Last Admin: 11/28/23 08:43 Dose: 81 mg Documented By: SUMEET Atorvastatin Calcium (Atorvastatin Calcium 40 Mg Tablet) 40 mg PO DAILY [facility] Last Admin: 11/28/23 08:43 Dose: 40 mg Documented By: SUMEET Benzonatate (Benzonatate 100 Mg Capsule) 100 mg PO TID PRN PRN Reason: Cough Calcium Carbonate (Calcium Carbonate 750 Mg Tab.Chew) 750 mg PO Q4H PRN PRN Reason: Heartburn Clopidogrel Bisulfate (Clopidogrel Bisulfate 75 Mg Tablet) 75 mg PO DAILY [facility] Last Admin: 11/28/23 08:42 Dose: 75 mg Documented By: SUMEET Dorzolamide HCl (Dorzolamide Hcl 2 % Ophth Bita 10 Ml Drpbtl) 1 drop EYE-BOTH BID [facility] Last Admin: 11/28/23 08:51 Dose: 1 drop Documented By: SUMEET Finasteride (Finasteride 5 Mg Tablet) 5 mg PO DAILY [facility] Last Admin: 11/28/23 09:10 Dose: 5 mg Documented By: SUMEET Glucose (Glucose Gel 15 Gm Gel..Gram.) 15 gm PO Q15M PRN; Protocol PRN Reason: per Hypoglycemia Standing Ord. Heparin Sodium (Porcine) (Heparin Sodium,Porcine 5,000 Unit/Ml Vial) 2,500 unit 40 unit/kg (2500 unit) IVPUSH PROTOCOL BOLUS PRN; Protocol PRN Reason: 40 unit/kg - Heparin Protocol Last Admin: 11/27/23 20:22 Dose: 2,500 unit Documented By: ZIGGY Heparin Sodium (Porcine) (Heparin Sodium,Porcine 5,000 Unit/Ml Vial) 5,000 unit 80 unit/kg (5000 unit) IVPUSH PROTOCOL BOLUS PRN; Protocol PRN Reason: 80 unit/kg - Heparin Protocol Heparin Sodium/Sodium Chloride (Heparin Sodium,Porcine/1/2ns) 25,000 unit in 250 mls @ 0 mls/hr IVCONT .Q0M [facility]; Protocol Last Admin: 11/28/23 10:29 Dose: 14 units/kg/hr, 8.82 mls/hr Documented By: SUMEET Co-signed By: ELANA Dextrose (D10) 250 mls @ 750 mls/hr IV Q15M PRN; Protocol PRN Reason: per Hypoglycemia Standing Ord. Insulin Glargine (Insulin Glargine,Hum.Rec.Anlog 100 Unit/Ml 10 Ml Vial) 8 unit SUBCUT BEDTIME [facility] Last Admin: 11/27/23 20:27 Dose: 8 unit Documented By: ZIGGY Insulin Glargine (Insulin Glargine,Hum.Rec.Anlog 100 Unit/Ml 10 Ml Vial) 6 unit SUBCUT DAILY [facility] Last Admin: 11/28/23 08:44 Dose: Not Given Documented By: SUMEET Non-Admin Reason: Physician Held Med Insulin Human Lispro (Insulin Lispro 100 Unit/Ml 3 Ml Vial) 0 unit SUBCUT QIDACHS [facility]; Protocol Last Admin: 11/28/23 08:43 Dose: 2 unit Documented By: SUMEET Magnesium Hydroxide (Milk Of Magnesia 30 Ml Oral.Susp) 30 ml PO DAILY PRN PRN Reason: Constipation Melatonin (Melatonin 3 Mg Tablet) 6 mg PO BEDTIME PRN PRN Reason: Insomnia Metoprolol Tartrate (Metoprolol Tartrate 12.5 Mg Halftab) 12.5 mg PO BID [facility]; Protocol Last Admin: 11/28/23 08:42 Dose: 12.5 mg Documented By: SUMEET Ondansetron HCl (Ondansetron Hcl 4 Mg/2 Ml Vial) 4 mg IVPUSH Q8H PRN PRN Reason: Nausea and Vomiting Oxybutynin Chloride (Oxybutynin Chloride 5 Mg Tablet) 5 mg G-TUBE DAILY [facility] Last Admin: 11/28/23 08:43 Dose: 5 mg Documented By: SUMEET Sertraline HCl (Sertraline Hcl 50 Mg Tablet) 50 mg PO DAILY [facility] Last Admin: 11/28/23 08:43 Dose: 50 mg Documented By: SUMEET Sodium Chloride (0.9 % Sodium Chloride Flush 3 Ml Syringe) 3 ml IVFLUSH QSHIFT [facility] Last Admin: 11/28/23 08:44 Dose: 3 ml Documented By: SUMEET Labs 11/28/23 06:02 11/28/23 06:02 Labs: Laboratory Results - last 24 hr 11/27/23 11/27/23 11/27/23 08:56 11:48 14:10 MCV MCH MCHC RDW Plt Count MPV Absolute Nucleated RBC Nucleated RBC % (auto) PT INR aPTT Heparin Protocol 26.4 L Anion Gap Estim Creat Clear Calc Estimated GFR POC Glucose 186 H 186 H Random Glucose Calcium Troponin I High Sens Triglycerides Cholesterol LDL Cholesterol, Calc HDL Cholesterol 11/27/23 11/27/23 11/27/23 17:32 18:01 20:08 MCV MCH MCHC RDW Plt Count MPV Absolute Nucleated RBC Nucleated RBC % (auto) PT INR aPTT Heparin Protocol 51.1 L D Anion Gap Estim Creat Clear Calc Estimated GFR POC Glucose 185 H 177 H Random Glucose Calcium Troponin I High Sens Triglycerides Cholesterol LDL Cholesterol, Calc HDL Cholesterol 11/28/23 11/28/23 11/28/23 02:26 06:02 07:15 MCV 89.8 MCH 30.6 MCHC 34.1 RDW 12.3 Plt Count 185 MPV 10.9 Absolute Nucleated RBC 0.000 Nucleated RBC % (auto) 0.0 PT 16.2 H INR 1.3 H aPTT Heparin Protocol 66.5 D 56.9 Anion Gap 16 Estim Creat Clear Calc 51.8 Estimated GFR > 60 POC Glucose 166 H Random Glucose 160 H Calcium 8.9 Troponin I High Sens 2189.5 H* D Triglycerides 51 Cholesterol 111 LDL Cholesterol, Calc 58 HDL Cholesterol 43 11/28/23 08:32 MCV MCH MCHC RDW Plt Count MPV Absolute Nucleated RBC Nucleated RBC % (auto) PT INR aPTT Heparin Protocol 62.5 Anion Gap Estim Creat Clear Calc Estimated GFR POC Glucose Random Glucose Calcium Troponin I High Sens Triglycerides Cholesterol LDL Cholesterol, Calc HDL Cholesterol Assessment and Plan (1) Brain TIA: Status: Deleted Plan 79M PMH diabetes, hypertension, dyslipidemia, CVA, DM, pafib, vascular and alzheimers dementia, presented with lethargy, found to have elevated troponin Acute NSTEMI Cardiology appreciated, continue aspirin, statin, plavix metoprolol, 48 hours of heparin Follow-up echo Acute metabolic encephalopathy Likely acute hospital delirium in the setting of vascular and Alzheimer's dementia Orienting strategies monitor OPAL on chronic diastolic CHF Improved with IV Lasix, now euvolemic Hypertension Amlodipine, lisinopril History of CVA Continue asa, Plavix and statin Diabetes Basal bolus insulin BPH Continue Flomax DVT prophylaxis-on heparin drip DNR/DNI reason for continued hospitalization: 48 hours heparin Quality Stroke Does the patient have a stroke diagnosis?: No VTE Prior VTE?: No VTE Risk Level:: Medical - moderate - high VTE Device Contraindication: Treatment Not Indicated VTE Drug Contraindication: N/A - Med Ordered
[2023-11-28 11:37] LABS: Glucose, Whole Blood 118 mg/dL (60-115)
--- NOTE | 2023-11-28 11:58 | P.CONCA_ITS ---
History of Present Illness History of Present Illness Date of Service: 11/28/23 Chief complaint: NSTEMI [facility] Past Medical History Medical History Paroxysmal A-fib Dementia BPH (benign prostatic hyperplasia) Glaucoma Intracranial hemorrhage Stroke HLD (hyperlipidemia) HTN (hypertension) Diabetes Social History Social History Household Members: Children Housing: House Do you presently have visiting nurse or other home services: No Alcohol intake: former Patient Tobacco Use Status: Never used Tobacco Advance Directives Date on File: 11/27/23 service: No Current occupational status: retired Meds Allergies Allergy/AdvReac Type Severity Reaction Status Date / Time No Known Allergies Allergy Verified 11/27/23 06:54 Active Medications: Current Medications Acetaminophen (Acetaminophen 325 Mg Tablet) 650 mg PO Q6H PRN PRN Reason: Pain, Mild (Pain Scale 1-3), fever or headache Amlodipine Besylate (Amlodipine Besylate 5 Mg Tablet) 5 mg PO DAILY [facility]; Protocol Last Admin: 11/28/23 08:43 Dose: 5 mg Aspirin (Aspirin Enteric Coated 81 Mg Tablet.Dr) 81 mg PO DAILY [facility] Last Admin: 11/28/23 08:43 Dose: 81 mg Atorvastatin Calcium (Atorvastatin Calcium 40 Mg Tablet) 40 mg PO DAILY [facility] Last Admin: 11/28/23 08:43 Dose: 40 mg Benzonatate (Benzonatate 100 Mg Capsule) 100 mg PO TID PRN PRN Reason: Cough Calcium Carbonate (Calcium Carbonate 750 Mg Tab.Chew) 750 mg PO Q4H PRN PRN Reason: Heartburn Clopidogrel Bisulfate (Clopidogrel Bisulfate 75 Mg Tablet) 75 mg PO DAILY [facility] Last Admin: 11/28/23 08:42 Dose: 75 mg Dorzolamide HCl (Dorzolamide Hcl 2 % Ophth Bita 10 Ml Drpbtl) 1 drop EYE-BOTH BID [facility] Last Admin: 11/28/23 08:51 Dose: 1 drop Finasteride (Finasteride 5 Mg Tablet) 5 mg PO DAILY [facility] Last Admin: 11/28/23 09:10 Dose: 5 mg Glucose (Glucose Gel 15 Gm Gel..Gram.) 15 gm PO Q15M PRN; Protocol PRN Reason: per Hypoglycemia Standing Ord. Heparin Sodium (Porcine) (Heparin Sodium,Porcine 5,000 Unit/Ml Vial) 2,500 unit 40 unit/kg (2500 unit) IVPUSH PROTOCOL BOLUS PRN; Protocol PRN Reason: 40 unit/kg - Heparin Protocol Last Admin: 11/27/23 20:22 Dose: 2,500 unit Heparin Sodium (Porcine) (Heparin Sodium,Porcine 5,000 Unit/Ml Vial) 5,000 unit 80 unit/kg (5000 unit) IVPUSH PROTOCOL BOLUS PRN; Protocol PRN Reason: 80 unit/kg - Heparin Protocol Heparin Sodium/Sodium Chloride (Heparin Sodium,Porcine/1/2ns) 25,000 unit in 250 mls @ 0 mls/hr IVCONT .Q0M [facility]; Protocol Last Admin: 11/28/23 10:29 Dose: 14 units/kg/hr, 8.82 mls/hr Dextrose (D10) 250 mls @ 750 mls/hr IV Q15M PRN; Protocol PRN Reason: per Hypoglycemia Standing Ord. Insulin Glargine (Insulin Glargine,Hum.Rec.Anlog 100 Unit/Ml 10 Ml Vial) 8 unit SUBCUT BEDTIME [facility] Last Admin: 11/27/23 20:27 Dose: 8 unit Insulin Glargine (Insulin Glargine,Hum.Rec.Anlog 100 Unit/Ml 10 Ml Vial) 6 unit SUBCUT DAILY [facility] Last Admin: 11/28/23 08:44 Dose: Not Given Insulin Human Lispro (Insulin Lispro 100 Unit/Ml 3 Ml Vial) 0 unit SUBCUT QIDACHS [facility]; Protocol Last Admin: 11/28/23 11:40 Dose: Not Given Magnesium Hydroxide (Milk Of Magnesia 30 Ml Oral.Susp) 30 ml PO DAILY PRN PRN Reason: Constipation Melatonin (Melatonin 3 Mg Tablet) 6 mg PO BEDTIME PRN PRN Reason: Insomnia Metoprolol Tartrate (Metoprolol Tartrate 12.5 Mg Halftab) 12.5 mg PO BID [facility]; Protocol Last Admin: 11/28/23 08:42 Dose: 12.5 mg Ondansetron HCl (Ondansetron Hcl 4 Mg/2 Ml Vial) 4 mg IVPUSH Q8H PRN PRN Reason: Nausea and Vomiting Oxybutynin Chloride (Oxybutynin Chloride 5 Mg Tablet) 5 mg G-TUBE DAILY [facility] Last Admin: 11/28/23 08:43 Dose: 5 mg Sertraline HCl (Sertraline Hcl 50 Mg Tablet) 50 mg PO DAILY [facility] Last Admin: 11/28/23 08:43 Dose: 50 mg Sodium Chloride (0.9 % Sodium Chloride Flush 3 Ml Syringe) 3 ml IVFLUSH QSHIFT [facility] Last Admin: 11/28/23 08:44 Dose: 3 ml Home Medications ?Medication ?Instructions ?Recorded ?Confirmed ?Last Taken ?Type amlodipine 5 mg tablet 5 mg PO DAILY 05/04/20 11/27/23 11/26/23 History atorvastatin 40 mg tablet 40 mg PO DAILY 05/04/20 11/27/23 11/26/23 History brimonidine 0.2 %-timolol 0.5 % 1 drp ophthalmic (eye) DAILY 05/04/20 11/27/23 11/26/23 History eye drops (Combigan) clopidogrel 75 mg tablet 75 mg PO DAILY 05/04/20 11/27/23 11/26/23 History dorzolamide 2 % eye drops 1 drp ophthalmic (eye) BID 05/04/20 11/27/23 11/26/23 History finasteride 5 mg tablet 5 mg PO DAILY 05/04/20 11/27/23 11/26/23 History insulin glargine 100 unit/mL 8 unit subcut QAM 05/04/20 11/27/23 11/26/23 History subcutaneous solution (Lantus U-100 Insulin) insulin glargine 100 unit/mL 11 unit subcut BEDTIME 05/04/20 11/27/23 11/26/23 History subcutaneous solution (Lantus U-100 Insulin) insulin lispro 100 unit/mL See Protocol subcut TIDWM 05/04/20 11/27/23 11/26/23 History subcutaneous solution (Humalog U-100 Insulin) oxybutynin chloride 5 mg tablet 1 tab PO DAILY 05/04/20 11/27/23 11/26/23 History sertraline 50 mg tablet 1 tab PO DAILY 05/04/20 11/27/23 11/26/23 History acetaminophen 500 mg capsule 500 mg PO Q6H PRN Pain 11/27/23 11/27/23 11/26/23 History (Mapap (acetaminophen)) cholecalciferol (vitamin D3) 125 125 mcg PO DAILY 06/11/27/23 11/26/23 History mcg (5,000 unit) capsule lisinopril 20 mg tablet 20 mg PO DAILY 11/27/23 11/27/23 11/26/23 History Physical Exam 2 Vital Signs: Vital Signs: Last Vital Signs Temp 98.8 F 11/28/23 08:00 Pulse 68 11/28/23 08:00 Resp 20 11/28/23 08:00 BP 114/56 L 11/28/23 08:00 Pulse Ox 96 11/28/23 08:00 O2 Del Method Room Air 11/28/23 08:00 BMI result Body Mass Index 19.1 Objective Labs and Meds 11/28/23 06:02 11/28/23 06:02 Lab results: Laboratory Results - last 24 hr 11/27/23 11/27/23 11/27/23 08:56 14:10 17:32 WBC RBC Hgb Hct MCV MCH MCHC RDW Plt Count MPV Absolute Nucleated RBC Nucleated RBC % (auto) PT INR aPTT Heparin Protocol 26.4 L Sodium Potassium Chloride Carbon Dioxide Anion Gap BUN Creatinine Estim Creat Clear Calc Estimated GFR POC Glucose 186 H 185 H Random Glucose Calcium Troponin I High Sens Triglycerides Cholesterol LDL Cholesterol, Calc HDL Cholesterol 11/27/23 11/27/23 11/28/23 18:01 20:08 02:26 WBC RBC Hgb Hct MCV MCH MCHC RDW Plt Count MPV Absolute Nucleated RBC Nucleated RBC % (auto) PT INR aPTT Heparin Protocol 51.1 L D 66.5 D Sodium Potassium Chloride Carbon Dioxide Anion Gap BUN Creatinine Estim Creat Clear Calc Estimated GFR POC Glucose 177 H Random Glucose Calcium Troponin I High Sens Triglycerides Cholesterol LDL Cholesterol, Calc HDL Cholesterol 11/28/23 11/28/23 11/28/23 06:02 07:15 08:32 WBC 7.5 RBC 3.33 L Hgb 10.2 L Hct 29.9 L MCV 89.8 MCH 30.6 MCHC 34.1 RDW 12.3 Plt Count 185 MPV 10.9 Absolute Nucleated RBC 0.000 Nucleated RBC % (auto) 0.0 PT 16.2 H INR 1.3 H aPTT Heparin Protocol 56.9 62.5 Sodium 141 Potassium 3.4 Chloride 103 Carbon Dioxide 25 Anion Gap 16 BUN 20 H Creatinine 0.89 Estim Creat Clear Calc 51.8 Estimated GFR > 60 POC Glucose 166 H Random Glucose 160 H Calcium 8.9 Troponin I High Sens 2189.5 H* D Triglycerides 51 Cholesterol 111 LDL Cholesterol, Calc 58 HDL Cholesterol 43 11/28/23 11:21 WBC RBC Hgb Hct MCV MCH MCHC RDW Plt Count MPV Absolute Nucleated RBC Nucleated RBC % (auto) PT INR aPTT Heparin Protocol Sodium Potassium Chloride Carbon Dioxide Anion Gap BUN Creatinine Estim Creat Clear Calc Estimated GFR POC Glucose 118 H Random Glucose Calcium Troponin I High Sens Triglycerides Cholesterol LDL Cholesterol, Calc HDL Cholesterol Procedures Date of Service Date of Service: 11/28/23
[2023-11-28 12:00] VITALS: BP 102/52; PULSE 67; RESP 20; TEMP 37.2; O2SAT 93
--- NOTE | 2023-11-28 12:33 | PM.PNCARD ---
Subjective Subjective Date of Service: 11/28/23 Interval history: Seen and examined at bedside. somnolent and not eating much. The daughter at bedside who said that he has days when he does not eat much. Denying any symptoms. Physical Exam Vital Signs: Last Vital Signs Temp 98.8 F 11/28/23 08:00 Pulse 68 11/28/23 08:00 Resp 20 11/28/23 08:00 BP 114/56 L 11/28/23 08:00 Pulse Ox 96 11/28/23 08:00 O2 Del Method Room Air 11/28/23 08:00 BMI result Body Mass Index 19.1 GENERAL APPEARANCE: in no acute distress, pleasant. NECK: no carotid bruit, no jugular venous distention. SKIN: no suspicious lesions, warm and dry. HEART: no murmurs, regular rate and rhythm. LUNGS: clear to auscultation bilaterally. ABDOMEN: soft, nontender. EXTREMITIES: no edema. PERIPHERAL PULSES: equal. NEUROLOGIC: Somnolent but arousbale. Following simple commands and answering questions. Objective Labs and Meds 11/28/23 06:02 11/28/23 06:02 Lab results: Laboratory Results - last 24 hr 11/27/23 11/27/23 11/27/23 14:10 17:32 18:01 WBC RBC Hgb Hct MCV MCH MCHC RDW Plt Count MPV Absolute Nucleated RBC Nucleated RBC % (auto) PT INR aPTT Heparin Protocol 51.1 L D Sodium Potassium Chloride Carbon Dioxide Anion Gap BUN Creatinine Estim Creat Clear Calc Estimated GFR POC Glucose 186 H 185 H Random Glucose Calcium Troponin I High Sens Triglycerides Cholesterol LDL Cholesterol, Calc HDL Cholesterol 11/27/23 11/28/23 11/28/23 20:08 02:26 06:02 WBC 7.5 RBC 3.33 L Hgb 10.2 L Hct 29.9 L MCV 89.8 MCH 30.6 MCHC 34.1 RDW 12.3 Plt Count 185 MPV 10.9 Absolute Nucleated RBC 0.000 Nucleated RBC % (auto) 0.0 PT 16.2 H INR 1.3 H aPTT Heparin Protocol 66.5 D 56.9 Sodium 141 Potassium 3.4 Chloride 103 Carbon Dioxide 25 Anion Gap 16 BUN 20 H Creatinine 0.89 Estim Creat Clear Calc 51.8 Estimated GFR > 60 POC Glucose 177 H Random Glucose 160 H Calcium 8.9 Troponin I High Sens 2189.5 H* D Triglycerides 51 Cholesterol 111 LDL Cholesterol, Calc 58 HDL Cholesterol 43 11/28/23 11/28/23 11/28/23 07:15 08:32 11:21 WBC RBC Hgb Hct MCV MCH MCHC RDW Plt Count MPV Absolute Nucleated RBC Nucleated RBC % (auto) PT INR aPTT Heparin Protocol 62.5 Sodium Potassium Chloride Carbon Dioxide Anion Gap BUN Creatinine Estim Creat Clear Calc Estimated GFR POC Glucose 166 H 118 H Random Glucose Calcium Troponin I High Sens Triglycerides Cholesterol LDL Cholesterol, Calc HDL Cholesterol Progress Note: A&P Assessment and plan (1) Non-ST elevation ME (NSTEMI): Status: Acute Plan [age] year gentleman with dementia and previous stroke presenting with change in mental status who was noticed to have precordial T-wave inversions with elevated troponin levels. Echocardiography has shown mid to distal LV dysfunction in a pattern of takotsubo versus multivessel disease. Biomarkers are quite elevated in the high sensitivity troponin levels at 02:18 9.5. He has been on heparin drip. He was already on Plavix and we are treating him with aspirin and Plavix currently. Blood pressure is well controlled. He is not clinically in heart failure. Denying any active symptoms. With dementia he has had good and bad days and some days he is withdrawn and does not eat much. I had a detailed discussion with the patient's daughter at bedside and healthcare proxy margareth on the phone. I have explained to them that given dementia and previous stroke he has not a good candidate for any aggressive procedures. They were both agreeable. We will medically treat him with anticoagulation for 48 hours provided that he tolerates it. If any concern for bleeding or anemia and heparin should be stopped. Clinically not in heart failure. We will follow along with you. Thank you for allowing me to participate in the care of your patient. Please feel free to contact me if you have any questions. Time Spent With Patient Time: Total time managing care of this patient today ____ minutes. Progress Note: Quality Stroke Does the patient have a stroke diagnosis?: No Procedures Date of Service Date of Service: 11/28/23
[2023-11-28 16:00] VITALS: BP 103/54; PULSE 68; RESP 20; TEMP 36.3; O2SAT 93
[2023-11-28 16:13] LABS: Glucose, Whole Blood 286 mg/dL (60-115)
[2023-11-28 19:56] VITALS: BP 124/58; PULSE 70; RESP 16; TEMP 37.1; O2SAT 95
[2023-11-28 20:31] LABS: Glucose, Whole Blood 203 mg/dL (60-115)
[2023-11-28] MEDS: Insulin Glargine,Hum.rec.anlog 100 UNIT/ML 10 ML VIAL 8 UNIT SUBCUT (20:39)
[2023-11-28] MEDS: Milk of Magnesia 30 ML ORAL.SUSP PO (20:58)
[2023-11-28 23:03] VITALS: BP 118/57; PULSE 58; RESP 15; TEMP 36.5; O2SAT 96
[2023-11-29 04:00] VITALS: BP 122/67; PULSE 69; RESP 18; TEMP 36.4; O2SAT 94
[2023-11-29 06:38] LABS: Hematocrit 30.9 % (42.0-52.0); Hemoglobin 10.8 g/dl (14.0-18.0); Mean Corpuscular Hemoglobin 31.2 pg (27.0-33.0); Mean Corpuscular Volume 89.3 fL (80.0-98.0); Mean Platelet Volume 10.9 fL (9.4-12.4); Platelet Count 185 X10*3/uL (160-400); Red Blood Count 3.46 X10*6/uL (4.60-5.80); Red Cell Distribution Width 12.5 % (11.0-16.0); White Blood Count 7.3 X10*3/uL (4.8-10.8)
[2023-11-29 06:45] LABS: PTT Heparin Drip 49.2 SEC (53-77.9)
[2023-11-29 07:11] LABS: Anion Gap 11 (12-20); Blood Urea Nitrogen 25 mg/dL (9-16); Calcium 8.9 mg/dL (8.4-10.2); Carbon Dioxide 30 mmol/L (22-29); Chloride 103 mmol/L (96-108); Creatinine Clr Calc Pharmacy 55.5; Estimated Glomerular Filt Rate > 60; Glucose Fasting 172 mg/dL (60-99); Potassium 3.9 mmol/L (3.3-5.1); Sodium 140 mmol/L (135-145)
[2023-11-29] MEDS: Heparin Sodium,Porcine 5,000 UNIT/ML VIAL 2500 UNIT IVPUSH (07:11)
[2023-11-29 07:45] VITALS: BP 135/63; PULSE 62; RESP 17; TEMP 36.3; O2SAT 92
[2023-11-29 07:45] LABS: Glucose, Whole Blood 172 mg/dL (60-115)
[2023-11-29] MEDS: Finasteride 5 MG TABLET PO (08:18)
[2023-11-29] MEDS: Sertraline HCL 50 MG TABLET PO (08:18)
[2023-11-29] MEDS: oxyBUTYnin chloride 5 MG TABLET G-TUBE (08:18)
[2023-11-29] MEDS: Aspirin Enteric Coated 81 MG TABLET.DR PO (08:18)
[2023-11-29 08:19] VITALS: BP 135/63
[2023-11-29] MEDS: Metoprolol Tartrate 12.5 MG HALFTAB PO ×2 (08:19→23:21)
[2023-11-29] MEDS: amLODIPine Besylate 5 MG TABLET PO (08:19)
[2023-11-29] MEDS: Atorvastatin Calcium 40 MG TABLET PO (08:19)
[2023-11-29] MEDS: Insulin Lispro 100 UNIT/ML 3 ML VIAL SUBCUT ×4 (08:19→23:21)
[2023-11-29] MEDS: Clopidogrel Bisulfate 75 MG TABLET PO (08:19)
[2023-11-29] MEDS: Dorzolamide HCl 2 % Ophth Sol 10 ML DRPBTL 1 DROP EYE-BOTH ×2 (08:34→23:24)
--- NOTE | 2023-11-29 10:28 | P.PNIM_ITS ---
Subjective Subjective Date of Service: 11/29/23 Interval History: eating well Physical Exam 2 Vital Signs: Vital Signs: Last Vital Signs Temp 97.4 F 11/29/23 07:45 Pulse 62 11/29/23 07:45 Resp 17 11/29/23 07:45 BP 135/63 11/29/23 08:19 Pulse Ox 92 11/29/23 07:45 O2 Del Method Room Air 11/29/23 07:45 BMI result Body Mass Index 19.1 GENERAL APPEARANCE: in no acute distress, pleasant. NECK: no carotid bruit, no jugular venous distention. SKIN: no suspicious lesions, warm and dry. HEART: no murmurs, regular rate and rhythm. LUNGS: clear to auscultation bilaterally. ABDOMEN: soft, nontender. EXTREMITIES: no edema. PERIPHERAL PULSES: equal. NEUROLOGIC: Somnolent but arousbale. Following simple commands and answering questions. Objective Data Active Medications Acetaminophen (Acetaminophen 325 Mg Tablet) 650 mg PO Q6H PRN PRN Reason: Pain, Mild (Pain Scale 1-3), fever or headache Amlodipine Besylate (Amlodipine Besylate 5 Mg Tablet) 5 mg PO DAILY [facility] [place]; Protocol Last Admin: 11/29/23 08:19 Dose: 5 mg Documented By: SUMEET Aspirin (Aspirin Enteric Coated 81 Mg Tablet.Dr) 81 mg PO DAILY [facility] Last Admin: 11/29/23 08:18 Dose: 81 mg Documented By: SUMEET Atorvastatin Calcium (Atorvastatin Calcium 40 Mg Tablet) 40 mg PO DAILY [facility] Last Admin: 11/29/23 08:19 Dose: 40 mg Documented By: SUMEET Benzonatate (Benzonatate 100 Mg Capsule) 100 mg PO TID PRN PRN Reason: Cough Calcium Carbonate (Calcium Carbonate 750 Mg Tab.Chew) 750 mg PO Q4H PRN PRN Reason: Heartburn Clopidogrel Bisulfate (Clopidogrel Bisulfate 75 Mg Tablet) 75 mg PO DAILY [facility] Last Admin: 11/29/23 08:19 Dose: 75 mg Documented By: SUMEET Dorzolamide HCl (Dorzolamide Hcl 2 % [facility]hth [facility] 1 drop EYE-BOTH BID [facility] Last Admin: 11/29/23 08:34 Dose: 1 drop Documented By: SUMEET Finasteride (Finasteride 5 Mg Tablet) 5 mg PO DAILY [facility] Last Admin: 11/29/23 08:18 Dose: 5 mg Documented By: SUMEET Glucose (Glucose Gel 15 Gm Gel..Gram.) 15 gm PO Q15M PRN; Protocol PRN Reason: per Hypoglycemia Standing Ord. Heparin Sodium (Porcine) (Heparin Sodium,Porcine 5,000 Unit/Ml Vial) 2,500 unit 40 unit/kg (2500 unit) IVPUSH PROTOCOL BOLUS PRN; Protocol PRN Reason: 40 unit/kg - Heparin Protocol Last Admin: 11/29/23 07:11 Dose: 2,500 unit Documented By: ZIGGY Heparin Sodium (Porcine) (Heparin Sodium,Porcine 5,000 Unit/Ml Vial) 5,000 unit 80 unit/kg (5000 unit) IVPUSH PROTOCOL BOLUS PRN; Protocol PRN Reason: 80 unit/kg - Heparin Protocol Heparin Sodium/Sodium Chloride (Heparin Sodium,Porcine/1/2ns) 25,000 unit in 250 mls @ 0 mls/hr IVCONT .Q0M [facility]; Protocol Last Titration: 11/29/23 07:05 Dose: 16 units/kg/hr, 10.08 mls/hr Documented By: ZIGGY Co-signed By: SUMEET Dextrose (D10) 250 mls @ 750 mls/hr IV Q15M PRN; Protocol PRN Reason: per Hypoglycemia Standing Ord. Insulin Glargine (Insulin Glargine,Hum.Rec.Anlog 100 Unit/Ml 10 Ml Vial) 8 unit SUBCUT BEDTIME [facility] Last Admin: 11/28/23 20:39 Dose: 8 unit Documented By: ZIGGY Insulin Glargine (Insulin Glargine,Hum.Rec.Anlog 100 Unit/Ml 10 Ml Vial) 6 unit SUBCUT DAILY [facility] Last Admin: 11/29/23 08:27 Dose: Not Given Documented By: SUMEET Non-Admin Reason: Physician Held Med Insulin Human Lispro (Insulin Lispro 100 Unit/Ml 3 Ml Vial) 0 unit SUBCUT QIDACHS [facility]; Protocol Last Admin: 11/29/23 08:19 Dose: 2 unit Documented By: SUMEET Magnesium Hydroxide (Milk Of Magnesia 30 Ml Oral.Susp) 30 ml PO DAILY PRN PRN Reason: Constipation Last Admin: 11/28/23 20:58 Dose: 30 ml Documented By: ZIGGY Melatonin (Melatonin 3 Mg Tablet) 6 mg PO BEDTIME PRN PRN Reason: Insomnia Metoprolol Tartrate (Metoprolol Tartrate 12.5 Mg Halftab) 12.5 mg PO BID [facility] [place]; Protocol Last Admin: 11/29/23 08:19 Dose: 12.5 mg Documented By: SUMEET Ondansetron HCl (Ondansetron Hcl 4 Mg/2 Ml Vial) 4 mg IVPUSH Q8H PRN PRN Reason: Nausea and Vomiting Oxybutynin Chloride (Oxybutynin Chloride 5 Mg Tablet) 5 mg G-TUBE DAILY [facility] [place] Last Admin: 11/29/23 08:18 Dose: 5 mg Documented By: SUMEET Sertraline HCl (Sertraline Hcl 50 Mg Tablet) 50 mg PO DAILY [facility] [place] Last Admin: 11/29/23 08:18 Dose: 50 mg Documented By: SUMEET Sodium Chloride (0.9 % Sodium Chloride Flush 3 Ml Syringe) 3 ml IVFLUSH QSHIFT [facility] [place] Last Admin: 11/29/23 07:44 Dose: Not Given Documented By: SUMEET Non-Admin Reason: IV Running Labs 11/29/23 06:05 11/29/23 06:05 Labs: Laboratory Results - last 24 hr 11/28/23 11/28/23 11/28/23 11:21 16:01 20:26 MCV MCH MCHC RDW Plt Count MPV Absolute Nucleated RBC Nucleated RBC % (auto) aPTT Heparin Protocol Anion Gap Estim Creat Clear Calc Estimated GFR POC Glucose 118 H 286 H 203 H Fasting Glucose Calcium 11/29/23 11/29/23 06:05 07:20 MCV 89.3 MCH 31.2 MCHC 35.0 RDW 12.5 Plt Count 185 MPV 10.9 Absolute Nucleated RBC 0.000 Nucleated RBC % (auto) 0.0 aPTT Heparin Protocol 49.2 L D Anion Gap 11 L Estim Creat Clear Calc 55.5 Estimated GFR > 60 POC Glucose 172 H Fasting Glucose 172 H Calcium 8.9 Assessment and Plan (1) Brain TIA: Status: Deleted Plan 79M PMH diabetes, hypertension, dyslipidemia, CVA, DM, pafib, vascular and alzheimers dementia, presented with lethargy, found to have elevated troponin Acute NSTEMI Cardiology appreciated, continue aspirin, statin, plavix metoprolol, s/p 48 hours of heparin echo with 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 Acute metabolic encephalopathy Likely acute hospital delirium in the setting of vascular and Alzheimer's dementia Orienting strategies monitor debility pt eval Acute on chronic diastolic CHF Improved with IV Lasix, now euvolemic Hypertension Amlodipine, lisinopril History of CVA Continue asa, Plavix and statin Diabetes Basal bolus insulin BPH Continue Flomax DVT prophylaxis-on heparin drip DNR/DNI reason for continued hospitalization: safe dispo Quality Stroke Does the patient have a stroke diagnosis?: No VTE Prior VTE?: No VTE Risk Level:: Medical - moderate - high VTE Device Contraindication: Treatment Not Indicated VTE Drug Contraindication: N/A - Med Ordered
[2023-11-29 11:15] LABS: Glucose, Whole Blood 228 mg/dL (60-115)
[2023-11-29 11:49] VITALS: BP 110/62; PULSE 69; RESP 17; TEMP 36.4; O2SAT 94
--- NOTE | 2023-11-29 12:24 | PM.PNCARD ---
Subjective Subjective Date of Service: 11/29/23 Interval history: Seen examined at bedside. No acute complaints today. Physical Exam Vital Signs: Last Vital Signs Temp 97.5 F 11/29/23 11:49 Pulse 69 11/29/23 11:49 Resp 17 11/29/23 11:49 BP 110/62 11/29/23 11:49 Pulse Ox 94 11/29/23 11:49 O2 Del Method Room Air 11/29/23 11:49 BMI result Body Mass Index 19.1 GENERAL APPEARANCE: in no acute distress, pleasant. NECK: no carotid bruit, no jugular venous distention. SKIN: no suspicious lesions, warm and dry. HEART: no murmurs, regular rate and rhythm. LUNGS: clear to auscultation bilaterally. ABDOMEN: soft, nontender. EXTREMITIES: no edema. PERIPHERAL PULSES: equal. NEUROLOGIC: Somnolent but arousbale. Following simple commands and answering questions. Objective Labs and Meds 11/29/23 06:05 11/29/23 06:05 Lab results: Laboratory Results - last 24 hr 11/28/23 11/28/23 11/29/23 16:01 20:26 06:05 WBC 7.3 RBC 3.46 L Hgb 10.8 L Hct 30.9 L MCV 89.3 MCH 31.2 MCHC 35.0 RDW 12.5 Plt Count 185 MPV 10.9 Absolute Nucleated RBC 0.000 Nucleated RBC % (auto) 0.0 aPTT Heparin Protocol 49.2 L D Sodium 140 Potassium 3.9 Chloride 103 Carbon Dioxide 30 H Anion Gap 11 L BUN 25 H Creatinine 0.83 Estim Creat Clear Calc 55.5 Estimated GFR > 60 POC Glucose 286 H 203 H Fasting Glucose 172 H Calcium 8.9 11/29/23 11/29/23 07:20 11:10 WBC RBC Hgb Hct MCV MCH MCHC RDW Plt Count MPV Absolute Nucleated RBC Nucleated RBC % (auto) aPTT Heparin Protocol Sodium Potassium Chloride Carbon Dioxide Anion Gap BUN Creatinine Estim Creat Clear Calc Estimated GFR POC Glucose 172 H 228 H Fasting Glucose Calcium Progress Note: A&P Assessment and plan (1) Non-ST elevation NH (NSTEMI): Status: Acute Plan [age] year gentleman with dementia and previous stroke presenting with change in mental status who was noticed to have precordial T-wave inversions with elevated troponin levels. Echocardiography has shown mid to distal LV dysfunction in a pattern of takotsubo versus multivessel disease. Biomarkers are quite elevated and high sensitivity troponin is 2000. He has been on heparin drip. He was already on Plavix and we are treating him with aspirin and Plavix currently. Blood pressure is well controlled. He is not clinically in heart failure. Denying any active symptoms. With dementia he has had good and bad days and some days he is withdrawn and does not eat much. I had a detailed discussion with the patient's daughter at bedside and healthcare proxy margareth on the phone. I have explained to them that given dementia and previous stroke he has not a good candidate for any aggressive procedures. They were both agreeable. He has completed 48 hours of heparin. Continue aspirin and Plavix. Can be discharged home from cardiovascular point of view. Thank you for allowing me to participate in the care of your patient. Please feel free to contact me if you have any questions. Time Spent With Patient Time: Total time managing care of this patient today ____ minutes. Progress Note: Quality Stroke Does the patient have a stroke diagnosis?: No Procedures Date of Service Date of Service: 11/29/23
[2023-11-29] MEDS: Erythromycin Base 0.5% Oph Oin 1 GM TUBE 1 CM EYE-BOTH ×2 (14:43→23:26)
[2023-11-29 15:54] VITALS: BP 114/65; PULSE 62; RESP 18; TEMP 36.3; O2SAT 93
[2023-11-29 16:19] LABS: Glucose, Whole Blood 190 mg/dL (60-115)
[2023-11-29 20:00] VITALS: BP 120/58; PULSE 76; RESP 16; TEMP 36.4; O2SAT 93
[2023-11-29 23:04] LABS: Glucose, Whole Blood 295 mg/dL (60-115)
[2023-11-29] MEDS: Insulin Glargine,Hum.rec.anlog 100 UNIT/ML 10 ML VIAL 8 UNIT SUBCUT (23:22)
[2023-11-29] MEDS: 0.9 % Sodium Chloride Flush 3 ML SYRINGE IVFLUSH (23:32)
[2023-11-30] VITALS (7 sets, daily range): BP systolic 115–139; BP diastolic 56–80; PULSE 58–81; RESP 16–20; TEMP 36.2–36.9; O2SAT 93–96
[2023-11-30 07:46] LABS: Glucose, Whole Blood 253 mg/dL (60-115)
[2023-11-30] MEDS: Insulin Lispro 100 UNIT/ML 3 ML VIAL SUBCUT ×3 (09:02→20:28)
[2023-11-30] MEDS: Insulin Glargine,Hum.rec.anlog 100 UNIT/ML 10 ML VIAL 6 UNIT SUBCUT (09:02)
[2023-11-30] MEDS: Finasteride 5 MG TABLET PO (09:02)
[2023-11-30] MEDS: Erythromycin Base 0.5% Oph Oin 1 GM TUBE 1 CM EYE-BOTH ×2 (09:03→20:15)
[2023-11-30] MEDS: Clopidogrel Bisulfate 75 MG TABLET PO (09:03)
[2023-11-30] MEDS: Metoprolol Tartrate 12.5 MG HALFTAB PO ×2 (09:03→20:15)
[2023-11-30] MEDS: amLODIPine Besylate 5 MG TABLET PO (09:03)
[2023-11-30] MEDS: Atorvastatin Calcium 40 MG TABLET PO (09:03)
[2023-11-30] MEDS: Aspirin Enteric Coated 81 MG TABLET.DR PO (09:03)
[2023-11-30] MEDS: oxyBUTYnin chloride 5 MG TABLET G-TUBE (09:03)
[2023-11-30] MEDS: Sertraline HCL 50 MG TABLET PO (09:03)
[2023-11-30] MEDS: Dorzolamide HCl 2 % Ophth Sol 10 ML DRPBTL 1 DROP EYE-BOTH ×2 (09:03→20:15)
--- NOTE | 2023-11-30 10:53 | HO.PM.IMPN ---
Subjective Subjective Date of Service: 11/30/23 Interval History: no complaints, much more alert and interactive today Physical Exam Vital Signs: Vital Signs: Last Vital Signs Temp 97.6 F 11/30/23 08:00 Pulse 81 11/30/23 08:00 Resp 20 11/30/23 08:00 BP 130/60 11/30/23 08:00 Pulse Ox 93 11/30/23 08:00 O2 Del Method Room Air 11/30/23 08:00 BMI result Body Mass Index 19.1 alert, confused, interactive, lungs clear Objective Data Active Medications Acetaminophen (Acetaminophen 325 Mg Tablet) 650 mg PO Q6H PRN PRN Reason: Pain, Mild (Pain Scale 1-3), fever or headache Amlodipine Besylate (Amlodipine Besylate 5 Mg Tablet) 5 mg PO DAILY [facility]; Protocol Last Admin: 11/30/23 09:03 Dose: 5 mg Documented By: VERONIKA Aspirin (Aspirin Enteric Coated 81 Mg Tablet.Dr) 81 mg PO DAILY [facility] Last Admin: 11/30/23 09:03 Dose: 81 mg Documented By: VERONIKA Atorvastatin Calcium (Atorvastatin Calcium 40 Mg Tablet) 40 mg PO DAILY [facility] Last Admin: 11/30/23 09:03 Dose: 40 mg Documented By: VERONIKA Benzonatate (Benzonatate 100 Mg Capsule) 100 mg PO TID PRN PRN Reason: Cough Calcium Carbonate (Calcium Carbonate 750 Mg Tab.Chew) 750 mg PO Q4H PRN PRN Reason: Heartburn Clopidogrel Bisulfate (Clopidogrel Bisulfate 75 Mg Tablet) 75 mg PO DAILY [facility] Last Admin: 11/30/23 09:03 Dose: 75 mg Documented By: VERONIKA Dorzolamide HCl (Dorzolamide Hcl 2 % Ophth Bita 10 Ml Drpbtl) 1 drop EYE-BOTH BID [facility] Last Admin: 11/30/23 09:03 Dose: 1 drop Documented By: VERONIKA Erythromycin (Erythromycin Base 0.5% Oph Oin 1 Gm Tube) 1 cm EYE-BOTH BID [facility] Last Admin: 11/30/23 09:03 Dose: 1 cm Documented By: VERONIKA Finasteride (Finasteride 5 Mg Tablet) 5 mg PO DAILY [facility] Last Admin: 11/30/23 09:02 Dose: 5 mg Documented By: VERONIKA Glucose (Glucose Gel 15 Gm Gel..Gram.) 15 gm PO Q15M PRN; Protocol PRN Reason: per Hypoglycemia Standing Ord. Dextrose (D10) 250 mls @ 750 mls/hr IV Q15M PRN; Protocol PRN Reason: per Hypoglycemia Standing Ord. Insulin Glargine (Insulin Glargine,Hum.Rec.Anlog 100 Unit/Ml 10 Ml Vial) 8 unit SUBCUT BEDTIME [facility] Last Admin: 11/29/23 23:22 Dose: 8 unit Documented By: DALILA Insulin Glargine (Insulin Glargine,Hum.Rec.Anlog 100 Unit/Ml 10 Ml Vial) 6 unit SUBCUT DAILY [facility] Last Admin: 11/30/23 09:02 Dose: 6 unit Documented By: VERONIKA Insulin Human Lispro (Insulin Lispro 100 Unit/Ml 3 Ml Vial) 0 unit SUBCUT QIDACHS [facility]; Protocol Last Admin: 11/30/23 09:02 Dose: 6 unit Documented By: VERONIKA Magnesium Hydroxide (Milk Of Magnesia 30 Ml Oral.Susp) 30 ml PO DAILY PRN PRN Reason: Constipation Last Admin: 11/28/23 20:58 Dose: 30 ml Documented By: PAULOLAMDominic Melatonin (Melatonin 3 Mg Tablet) 6 mg PO BEDTIME PRN PRN Reason: Insomnia Metoprolol Tartrate (Metoprolol Tartrate 12.5 Mg Halftab) 12.5 mg PO BID [facility]; Protocol Last Admin: 11/30/23 09:03 Dose: 12.5 mg Documented By: VERONIKA Ondansetron HCl (Ondansetron Hcl 4 Mg/2 Ml Vial) 4 mg IVPUSH Q8H PRN PRN Reason: Nausea and Vomiting Oxybutynin Chloride (Oxybutynin Chloride 5 Mg Tablet) 5 mg G-TUBE DAILY [facility] Last Admin: 11/30/23 09:03 Dose: 5 mg Documented By: VERONIKA Sertraline HCl (Sertraline Hcl 50 Mg Tablet) 50 mg PO DAILY [facility] Last Admin: 11/30/23 09:03 Dose: 50 mg Documented By: VERONIKA Sodium Chloride (0.9 % Sodium Chloride Flush 3 Ml Syringe) 3 ml IVFLUSH QSHIFT [facility] Last Admin: 11/30/23 07:16 Dose: Not Given Documented By: VERONIKA Non-Admin Reason: Previously Administered Labs 11/29/23 06:05 11/29/23 06:05 Labs: Laboratory Results - last 24 hr 11/29/23 11/29/23 11/29/23 11:10 16:06 23:00 POC Glucose 228 H 190 H 295 H 11/30/23 07:17 POC Glucose 253 H Assessment and Plan (1) Brain TIA: Status: Deleted Plan 79M PMH diabetes, hypertension, dyslipidemia, CVA, DM, pafib, vascular and alzheimers dementia, presented with lethargy, found to have elevated troponin Acute NSTEMI Cardiology appreciated, continue aspirin, statin, plavix metoprolol, s/p 48 hours of heparin echo with 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 Acute metabolic encephalopathy Likely acute hospital delirium in the setting of vascular and Alzheimer's dementia Orienting strategies monitor, much improved this morning 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
--- NOTE | 2023-11-30 11:31 | P.DS_ITS ---
DS: Providers Provider Date of Service: 12/01/23 Date of admission: 11/27/23 12:35 Primary care physician: Geoff Seymour MD Consults: 11/27/23 12:52 Consult to Cardiology Routine Consulting Provider: [facility] Reason for consultation: NSTEMI DS: Summary Hospital Course Hospital Course: from initial hpi: 83-year-old [place]-speaking male with a PMH significant for?HTN, HLD, insulin- dependent type 2 diabetes, hx of CVAs, and paroxysmal AFib s/p ablation 7 years prior who presents to the ED from home with lethargy and altered mental status. Patient has advanced dementia at baseline, lives with his spouse who takes care of him. Patient has been weaker and more tired for the past week. Last night noted patient was lethargic and more confused than baseline. Normally patient wakes the up 3 times at night to use the bathroom, though last night did not wake once and was incontinent of urine in the bed. This morning patient was difficult to arouse, not responding like normal, and could not move to get out of bed. Patient himself is alert and oriented to self only and incapable of supplement in HPI or ros. In the ED pt's vital signs stable and largely WNL. Labs were significant for H&H 10.8/31.4, elevated D-dimer of 623, initial troponin 1147.0 with repeat 1155.5, and BNP 905. No leukocytosis. No significant electrolyte abnormalities. Renal function baseline. Hepatic function baseline. UA negative for UTI. Stool negative for occult blood. Tested negative for flu, RSV, COVID. CXR showed mild bilateral interstitial prominence which may be secondary to mild edema or atypical viral infection. CT of head showed no acute intracranial findings, but showed general atrophy, nonspecific periventricular white matter disease, and chronic bilateral thalamic and basal ganglia lacunar infarcts similar to previous. CTA of chest found no evidence of pulmonary embolism, but showed atherosclerotic disease of coronary arteries and thoracic aorta without aortic aneurysm, interstitial pulmonary edema with trace pleural effusions and atelectasis bilaterally, and small patchy and hazy opacities in posterior right upper lobe and adjacent right middle lobe nonspecific. ?EKG demonstrated normal sinus rhythm with RBBB, left anterior fascicular block, and T-wave inversions in anterioseptal leads. Pt was treated with furosemide 10 mg IV, aspirin, and started on heparin drip. Pt will be admitted to the hospital for treatment and further evaluation of NSTEMI. hospital course: Patient was admitted for NSTEMI, was seen by Cardiology recommended 48 hours of IV heparin, dual antiplatelet and statin and beta-hanna. Echo showed reduced EF with pattern of either three-vessel disease or takotsubo. Decision was made to treat conservatively and forego invasive cardiac catheterization. Course was complicated by acute metabolic encephalopathy likely due to acute hospital delirium in the setting of vascular and Alzheimer's dementia (health care proxy has been invoked). Orienting strategies were administered and patient improved significantly. For debility was seen by physical therapy recommended short-term rehab. For acute on chronic diastolic CHF he improved with IV Lasix. For hypertension was continued on amlodipine lisinopril. For history of CVA was continued on dual antiplatelet and statin. For diabetes was continued on basal bolus insulin. For BPH was continued on Flomax. Patient is feeling better will be discharged to retirement facility. Time Attestation Discharge Coordination Time (in mins): 34 Quality: Safe Use of Opioids Does Pt have an Active Cancer Diagnosis on the Problem List?: No Quality: Stroke Does the patient have a stroke diagnosis?: No Physical Exam Vital Signs: Vital Signs: Last Vital Signs Temp 97.6 F 11/30/23 08:00 Pulse 78 11/30/23 10:42 Resp 20 11/30/23 08:00 BP 130/60 11/30/23 08:00 Pulse Ox 94 11/30/23 10:42 O2 Del Method Room Air 11/30/23 08:00 BMI result Body Mass Index 19.1 alert, confused, interactive, lungs clear DS: Data Data Completed and Pending Labs on day of discharge: Laboratory Results - last 24 hr 11/29/23 11/29/23 11/30/23 16:06 23:00 07:17 POC Glucose 190 H 295 H 253 H Discharge Plan Discharge Anticipated Discharge Date/Time: 11/30/23 11:18 Patient Disposition: Xfer SNF Discharge Diagnosis: nstemi Referrals: [facility] [Outside] - 1 Week Geoff Seymour MD [Primary Care Provider] - 1 Week Discharge Medications: New metoprolol tartrate 25 mg tablet 12.5 mg PO BID Qty: 0 0RF aspirin 81 mg Tablet,Delayed Release (Dr/Ec) 81 mg PO DAILY Qty: 0 0RF erythromycin 5 mg/gram (0.5 %) Ointment 1 cm ophthalmic (eye) BID Qty: 0 0RF Continued insulin glargine [Lantus U-100 Insulin] 100 unit/mL solution 8 unit subcut QAM insulin glargine [Lantus U-100 Insulin] 100 unit/mL solution 11 unit subcut BEDTIME finasteride 5 mg tablet 5 mg PO DAILY atorvastatin 40 mg tablet 40 mg PO DAILY clopidogrel 75 mg tablet 75 mg PO DAILY amlodipine 5 mg tablet 5 mg PO DAILY insulin lispro [Humalog U-100 Insulin] 100 unit/mL solution See Protocol subcut TIDWM Protocol: Insulin Correction Scale Less than or equal to 110 ---- Give (units): 0 111 to 150 Give (units): 0 151 to 200 Give (units): 2 201 to 250 Give (units): 4 251 to 300 Give (units): 6 301 to 350 Give (units): 8 Greater than 350 Give (units): 10 Call MD if Blood Glucose > : 350 oxybutynin chloride 5 mg tablet 1 tab PO DAILY sertraline 50 mg tablet 1 tab PO DAILY dorzolamide 2 % drops 1 drp ophthalmic (eye) BID brimonidine-timolol [Combigan] 0.2-0.5 % drops 1 drp ophthalmic (eye) DAILY acetaminophen [Mapap (acetaminophen)] 500 mg capsule 500 mg PO Q6H PRN (Reason: Pain) cholecalciferol (vitamin D3) 125 mcg (5,000 unit) capsule 125 mcg PO DAILY Discontinued lisinopril 20 mg tablet 20 mg PO DAILY Discharge Orders: Discharge Order (Routine); Ordered 12/01/23 Ordered By: Adam Crawford Diet: ndd3 solids, thin liquids Activity on Discharge: As tolerated Stand Alone Forms: Patient Portal Discharge page Print Language: [place] Care Plan Goals: manage nstemi Health Concerns: nstemi, cardiomyopathy Plan of Treatment: continue meds as prescribed, STR Assessment: see above
[2023-11-30 11:34] LABS: Glucose, Whole Blood 260 mg/dL (60-115)
[2023-11-30] MEDS: Enoxaparin Sodium 40 MG/0.4 ML SYRINGE SUBCUT (11:41)
--- NOTE | 2023-11-30 13:58 | MHC.CM.PN ---
IMM 11/30/23 Per MD rounds patient is ready to discharge today. [facility] is offering a bed for tomorrow. Multiple referrals have been sent according to family preference. They have not received from 1st 2nd or 3rd choice. Another preference has been obtained. A referral has been sent. [facility] is now the preference. Patient will transport via BLS. CM will follow for discharge.
--- NOTE | 2023-11-30 14:23 | MHC.SL.SWA ---
Speech Pathologist Impression: Risk of aspiration, oral phase dysphagia Risk of Aspiration Due to: Lethargy Neurological Condition Reduced Cognition Dysphasia Diet Status:Downgrade to NDD3 Liquid Consistency and Strategies for Safe Swallow: Liquid Intake Recommendation: Thin Liquid Intake Strategies: Small Sips Solid Food Consistency: Dietary Recommendations: Chopped/Advanced (NDD3) Additional Modifications to Solid Foods: Recommend START on CHOPPED/ADVANCED (NDD3) diet with THIN liquids, small pills whole in PUREE and large pills to be CRUSHED. Per RN, patient does not always feed himself if he is left with food. Patient w/ hx CVA, vascular and alzheimer's dementia, family reporting choking in the past. He will need 1:1 assistance feeding and close monitoring. Strategies are recommended to promote oral clearance: Ensure food is moistened with sauces and gravies, give small bites, encourage patient to chew food well, alternate with sips of liquid, ensure oral cavity is cleared before giving more bites, periodically check oral cavity. Oral Medication Intake: Crushed with Puree Please contact the pharmacy regarding appropriate crushable or liquid drug formulations that are available whenever modified delivery is recommended. Compensatory Strategies and Precautions to be Taken for Safe Swallow: Sitting Upright (90 deg) Double Swallow Small Bites and Sips Alternate Liquids/Solids Rate of Ingestion Change Oral Check Avoid Specific Foods Supervision While Eating and Drinking for Safe Swallow: Total Assistance (1:1) Foods to Avoid: Hard, tough to chew solids Swallowing Recommended Treatments: Compens. Strategy Educat. 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
[2023-11-30 16:17] LABS: Glucose, Whole Blood 125 mg/dL (60-115)
[2023-11-30 19:45] LABS: Glucose, Whole Blood 197 mg/dL (60-115)
[2023-11-30] MEDS: Insulin Glargine,Hum.rec.anlog 100 UNIT/ML 10 ML VIAL 8 UNIT SUBCUT (20:28)
[2023-11-30] MEDS: 0.9 % Sodium Chloride Flush 3 ML SYRINGE IVFLUSH (20:33)
[2023-12-01] VITALS: BP 131/63; PULSE 69; RESP 20; TEMP 36.1; O2SAT 96
[2023-12-01] MEDS: Acetaminophen 325 MG TABLET 650 MG PO (02:28)
[2023-12-01] MEDS: Milk of Magnesia 30 ML ORAL.SUSP PO (03:16)
[2023-12-01 03:51] VITALS: BP 146/61; PULSE 76; RESP 20; TEMP 36.3; O2SAT 96
[2023-12-01 07:32] LABS: Glucose, Whole Blood 155 mg/dL (60-115)
[2023-12-01 08:00] VITALS: BP 130/66; PULSE 74; RESP 18; TEMP 36.4; O2SAT 97
[2023-12-01] MEDS: Enoxaparin Sodium 40 MG/0.4 ML SYRINGE SUBCUT (09:17)
[2023-12-01] MEDS: Clopidogrel Bisulfate 75 MG TABLET PO (09:18)
[2023-12-01] MEDS: oxyBUTYnin chloride 5 MG TABLET G-TUBE (09:18)
[2023-12-01] MEDS: Finasteride 5 MG TABLET PO (09:18)
[2023-12-01] MEDS: amLODIPine Besylate 5 MG TABLET PO (09:18)
[2023-12-01] MEDS: Metoprolol Tartrate 12.5 MG HALFTAB PO (09:18)
[2023-12-01] MEDS: Aspirin Enteric Coated 81 MG TABLET.DR PO (09:18)
[2023-12-01] MEDS: Erythromycin Base 0.5% Oph Oin 1 GM TUBE 1 CM EYE-BOTH (09:18)
[2023-12-01] MEDS: Sertraline HCL 50 MG TABLET PO (09:18)
[2023-12-01] MEDS: Insulin Lispro 100 UNIT/ML 3 ML VIAL SUBCUT ×2 (09:18→11:51)
[2023-12-01] MEDS: Insulin Glargine,Hum.rec.anlog 100 UNIT/ML 10 ML VIAL 6 UNIT SUBCUT (09:18)
[2023-12-01] MEDS: Atorvastatin Calcium 40 MG TABLET PO (09:18)
[2023-12-01] MEDS: 0.9 % Sodium Chloride Flush 3 ML SYRINGE IVFLUSH (09:19)
[2023-12-01] MEDS: Dorzolamide HCl 2 % Ophth Sol 10 ML DRPBTL 1 DROP EYE-BOTH (09:20)
[2023-12-01 11:16] LABS: Glucose, Whole Blood 210 mg/dL (60-115)
--- NOTE | 2023-12-01 11:21 | MHC.CM.PN ---
Patient has been medically cleared for dc to SNF/STR today. Patient will dc to [facility] today @ 2 PM, via [facility]. CM spoke with Daughter/Shahla @ [phone] and addressed IMM with her (original will be mailed certified letter to Shahla and a copy has been placed on the chart).
[2023-12-01 11:30] VITALS: PULSE 84
[2023-12-01 11:47] VITALS: BP 125/60; PULSE 62; RESP 18; TEMP 36.3; O2SAT 97
--- NOTE | 2023-12-01 12:54 | MHC.SL.DTX ---
Dysphagia Diet modifications: Last documented Solid diet consistencies: Chopped/Advanced (NDD3) Last documented Liquid consistency: Thin Changes made to current diet?: No Liquid Consistency and Strategies: Liquid Intake Recommendation: Thin Compensatory Strategies for Safe Swallow: Small Sips Compensatory Strategies for Safe Swallow(b): Sitting Upright (90 deg) Double Swallow Small Bites and Sips Alternate Liquids/Solids Rate of Ingestion Change Oral Check Avoid Specific Foods Solid Food Consistency: Dietary Recommendations: Chopped/Advanced (NDD3) Additional Modifications to Solids: Recommend re-assessment by BEE ROBBER at his next level of care to align his dietary restriction with their house diet. Oral Medication Intake: Crushed with Puree Strategies and Precautions to be Taken for Safe Swallow: Sitting Upright (90 deg) Double Swallow Small Bites and Sips Alternate Liquids/Solids Rate of Ingestion Change Oral Check Avoid Specific Foods Supervision While Eating and/Drinking: Total Assistance (1:1) Foods to Avoid: Hard, tough to chew solids Swallowing Recommended Treatments: Compens. Strategy Educat. Recommendation for Speech: Inpatient Speech Therapy Comment: Frequency/Duration: PRN M-F Additional Comments: Treatment: Pt is seen with his Daughter present who assists with interpreting into Finnish Hebrew. Per RN, Pt is scheduled for pickup today at 2pm to go to a SNF for Rehab. Pt remains confused but pleasant. He required assistance with feeding, not knowing what to do with a cup or a straw provided to him. He attempted to drink pudding from a small container. However, with the appropriate amount of assistance he demonstrated toleration of our Chopped/Advanced Solids (NDD3) and Thin Liquids via cup and straw. Recommend re-assessment by BEE ROBBER at his next level of care to align his dietary restriction with their house diet. Wood Polisher Clinican/Clinical Fellow: No Supervisory Statement: I have reviewed and agree with the student/clinical fellow's documentation: N/A Speech Language Pathologist: Bahman Ware M.A., [facility]-BEE ROBBER
--- NOTE | 2023-12-01 15:07 | MHC.CM.PN ---
CM received a call from Patient's Daughter/HCP/Shahla, who states that her Sister is with Patient at [facility] and she feels like she cannot leave because the SNF appears understaffed and she feels it will be unsafe to do so. CM left a message for [facility] Liaison/Alisha, requesting her assistance to meet with the Daughters, ideally with the DON to reassure Patient and family and to develop a plan that family feels safe with. Alisha has responded while this note was being written and will assist.DORIS will follow further as needed.
== END 2023-12-01 14:01 | disposition skilled nursing facility (03) | DRG 280 ==
LOC: HO.ED 10:59 → HO.EDOVER 12:59 → HO.IMC 16:16
PROVIDERS: Internal Medicine; Student in an Organized Health Care Education/Training Program; Admitting Provider Student in an Organized Health Care Education/Training Program; Emergency Provider Emergency Medicine; PCP Internal Medicine; Visit Provider Internal Medicine
DX: I21.4 Non-ST elevation (NSTEMI) myocardial infarction (principal); G93.41 Metabolic encephalopathy; I50.33 Acute on chronic diastolic (congestive) heart failure; I51.81 Takotsubo syndrome; F05 Delirium due to known physiological condition; N40.0 Benign prostatic hyperplasia without lower urinary tract symptoms; I11.0 Hypertensive heart disease with heart failure; E11.9 Type 2 diabetes mellitus without complications; Z66 Do not resuscitate; G30.9 Alzheimer's disease, unspecified; F02.80 Dementia in other diseases classified elsewhere, unspecified severity, without behavioral disturbance, psychotic disturbance, mood disturbance, and anxiety; F01.50 Vascular dementia, unspecified severity, without behavioral disturbance, psychotic disturbance, mood disturbance, and anxiety; E78.5 Hyperlipidemia, unspecified; I48.0 Paroxysmal atrial fibrillation; Z20.822 Contact with and (suspected) exposure to COVID-19; Z86.73 Personal history of transient ischemic attack (TIA), and cerebral infarction without residual deficits; Z79.4 Long term (current) use of insulin; Z79.02 Long term (current) use of antithrombotics/antiplatelets; Z79.82 Long term (current) use of aspirin; Z79.899 Other long term (current) drug therapy
CPT/HCPCS: 0241U; 36415; 70450; 71045; 71275; 80048; 80053; 80061; 81003; 82272; 82550; 82947; 83690; 83735; 83880; 84484; 85025; 85027; 85379; 85610; 85730; 92526; 92610; 93005; 93306; 97110; 97162; 97530; 99285; J1644; J1650; J1940; Q9957; Q9967

== ENCOUNTER 2023-11-27 12:35 | Outpatient (BNV) | payer MEDICARE, MEDICAID, SELFPAY | END 2023-11-28 02:45 | PROVIDERS: Admitting Provider Student in an Organized Health Care Education/Training Program; Emergency Provider Emergency Medicine; PCP Internal Medicine; Visit Provider Internal Medicine Cardiovascular Disease | DX: R94.31 Abnormal electrocardiogram [ECG] [EKG] (principal) | CPT/HCPCS: 93010 ==

== ENCOUNTER → 2023-11-27 12:35 | Outpatient (BNV) | payer MEDICARE, MEDICAID, SELFPAY | PROVIDERS: Admitting Provider Student in an Organized Health Care Education/Training Program; Emergency Provider Emergency Medicine; PCP Internal Medicine; Visit Provider Student in an Organized Health Care Education/Training Program | DX: I21.4 Non-ST elevation (NSTEMI) myocardial infarction (principal) | CPT/HCPCS: 99223; 99231; 99232; 99239 ==

== ENCOUNTER → 2023-11-27 12:35 | Outpatient (BNV) | payer MEDICARE, MEDICAID, SELFPAY | PROVIDERS: Admitting Provider Student in an Organized Health Care Education/Training Program; Emergency Provider Emergency Medicine; PCP Internal Medicine; Visit Provider Internal Medicine Cardiovascular Disease | DX: I21.4 Non-ST elevation (NSTEMI) myocardial infarction (principal); R94.31 Abnormal electrocardiogram [ECG] [EKG] | CPT/HCPCS: 93010; 93306; 99223; 99232; 99233 ==

== ENCOUNTER 2023-12-01 16:27 | Emergency (ER) | payer MEDICARE, MEDICAID, SELFPAY ==
[2023-12-01 16:37] VITALS: PULSE 61; RESP 16; TEMP 37.3; O2SAT 98
[2023-12-01 16:40] VITALS: BP 102/40; BP 124/49; PULSE 103; PULSE 63; RESP 18; TEMP 37.3; O2SAT 98; O2SAT 99; BMI 19.4
--- NOTE | 2023-12-01 17:06 | ED.GENADULT ---
HPI - General Adult General Chief complaint: General Medical Stated complaint: INCREASED AMS Time Seen by Provider: 12/01/23 17:02 Source: family Mode of arrival: EMS Limitations: altered mental status History of Present Illness ED Provider: dominic STILES narrative: Rolled dementia with history of hypertension hyperlipidemia and diabetes multiple CVAs paroxysmal AFib status post ablation admitted here on 11/28/23 for non-STEMI started on aspirin and Plavix and metoprolol patient was sent to [facility] at noon time today came back as family is not happy with staffing had [facility]pc as they could not handle dementia patient there prior to this patient was dependent on his ADLs was able to ambulate with walker or cane but getting weaker his used to take Carafate but she has a back problem does have VNA coming for few hours a day Related Data Home Medications ?Medication ?Instructions ?Recorded ?Confirmed amlodipine 5 mg tablet 5 mg PO DAILY 05/04/20 12/01/23 atorvastatin 40 mg tablet 40 mg PO DAILY 05/04/20 12/01/23 brimonidine 0.2 %-timolol 0.5 % 1 drp ophthalmic (eye) DAILY 05/04/20 12/01/23 eye drops (Combigan) clopidogrel 75 mg tablet 75 mg PO DAILY 05/04/20 12/01/23 dorzolamide 2 % eye drops 1 drp ophthalmic (eye) BID 05/04/20 12/01/23 finasteride 5 mg tablet 5 mg PO DAILY 05/04/20 12/01/23 insulin glargine 100 unit/mL 8 unit subcut QAM 05/04/20 12/01/23 subcutaneous solution (Lantus U-100 Insulin) insulin glargine 100 unit/mL 11 unit subcut BEDTIME 05/04/20 12/01/23 subcutaneous solution (Lantus U-100 Insulin) insulin lispro 100 unit/mL See Protocol subcut TIDWM 05/04/20 12/01/23 subcutaneous solution (Humalog U-100 Insulin) oxybutynin chloride 5 mg tablet 1 tab PO DAILY 05/04/20 12/01/23 sertraline 50 mg tablet 1 tab PO DAILY 05/04/20 12/01/23 acetaminophen 500 mg capsule 500 mg PO Q6H PRN Pain 11/27/23 12/01/23 (Mapap (acetaminophen)) cholecalciferol (vitamin D3) 125 125 mcg PO DAILY 11/27/23 12/01/23 mcg (5,000 unit) capsule Previous Rx's ?Medication ?Instructions ?Recorded aspirin 81 mg tablet,delayed 81 mg PO DAILY #0 tabs 11/30/23 release erythromycin 5 mg/gram (0.5 %) eye 1 cm ophthalmic (eye) BID #0 grams 11/30/23 ointment metoprolol tartrate 25 mg tablet 12.5 mg (1/2 x 25 mg) PO BID #0 11/30/23 tabs Allergies Allergy/AdvReac Type Severity Reaction Status Date / Time No Known Allergies Allergy Verified 12/01/23 16:43 Review of Systems Review of Systems: Yes all other systems are reviewed and are negative [facility] Past Medical History Medical History Paroxysmal A-fib Dementia BPH (benign prostatic hyperplasia) Glaucoma Intracranial hemorrhage Stroke HLD (hyperlipidemia) HTN (hypertension) Diabetes Social History Social History Household Members: Children Housing: House Do you presently have visiting nurse or other home services: No Alcohol intake: former Comment: sitter Patient Tobacco Use Status: Never used Tobacco Smoked in Last 30 Days: No Use of substances other than those prescribed or required for medical reasons: No Advance Directives: No Advance Directives Information Provided: No Advance Directives Date on File: 11/27/23 Do you have a plan to hurt others: No Plan service: No Current occupational status: retired Physical Exam ED Vital Signs: Vital Signs - 24 hr 12/01/23 16:37 12/01/23 16:40 12/01/23 18:00 Temperature 99.2 F 99.2 F 98.9 F Pulse Rate 61 63 74 Respiratory Rate 16 18 13 Blood Pressure 124/49 L 125/82 Pulse Oximetry 98 99 92 Oxygen Delivery Method Room Air Room Air Room Air 12/01/23 20:13 12/01/23 22:39 Temperature 97.4 F 98.2 F Pulse Rate 83 70 Respiratory Rate 16 16 Blood Pressure 139/66 137/67 Pulse Oximetry 94 93 Oxygen Delivery Method Room Air Room Air BMI result Body Mass Index 19.4 Appearance: Alert. Oriented 1-2. No acute distress. Eyes: PERRLA, No Nystagmus ENT: Pharynx normal. Oral Mucosa moist Neck: Normal inspection. Neck supple. CVS: Normal heart rate and rhythm. Pulses normal. Respiratory: No respiratory distress. Equal air entry bilateral, no wheezing/rales/rhonchi Abdomen: Soft and nontender. Bowel sounds are present, no mass palpable, no CVA tenderness Skin: Skin warm and dry. Normal skin color. Normal skin turgor. Extremities: No lower extremity edema. No calf tenderness Neuro: Oriented X1-2. No motor deficit. No sensory deficit.No cerebellar signs , cranial nerves II-XII intact Medications Administered Generic Name Dose Route Start Last Admin Trade Name Freq PRN Reason Stop Dose Admin Dorzolamide HCl 1 drop 12/01/23 21:00 12/01/23 20:44 Dorzolamide Hcl 2 % Ophth Bita 10 Ml Drpbtl EYE-BOTH Not Given BID MYRA Erythromycin 1 cm 12/01/23 21:00 12/01/23 20:43 Erythromycin Base 0.5% Oph Oin 1 Gm Tube EYE-BOTH 1 cm BID MYRA Administration Insulin Glargine 11 unit 12/01/23 21:00 12/01/23 20:43 Insulin Glargine,Hum.Rec.Anlog 100 Unit/Ml 10 Ml Vial SUBCUT 11 unit BEDTIME MYRA Administration Insulin Human Lispro 0 unit 12/01/23 18:30 12/01/23 18:38 Insulin Lispro 100 Unit/Ml 3 Ml Vial SUBCUT Not Given TIDWM [facility] Protocol Metoprolol Tartrate 12.5 mg 12/01/23 21:00 12/01/23 20:44 Metoprolol Tartrate 12.5 Mg Halftab PO 12.5 mg BID MYRA Administration Protocol Medical Decision Making Medical Decision Making MDM Narrative: Patient with dementia for placement case management to find a suitable place Lab Data MDM Lab Attestation statement: I reviewed the patient's lab results. Labs: Lab Results 12/01/23 12/01/23 Range/Units 18:33 20:16 POC Glucose 132 H 210 H (60-115) mg/dL Discharge Plan Discharge Clinical Impression: Dementia Patient Disposition: Still a Patient Prescriptions: No Action insulin glargine [Lantus U-100 Insulin] 100 unit/mL solution 8 unit subcut QAM insulin glargine [Lantus U-100 Insulin] 100 unit/mL solution 11 unit subcut BEDTIME finasteride 5 mg tablet 5 mg PO DAILY atorvastatin 40 mg tablet 40 mg PO DAILY clopidogrel 75 mg tablet 75 mg PO DAILY amlodipine 5 mg tablet 5 mg PO DAILY insulin lispro [Humalog U-100 Insulin] 100 unit/mL solution See Protocol subcut TIDWM Protocol: Insulin Correction Scale Less than or equal to 110 ---- Give (units): 0 111 to 150 Give (units): 0 151 to 200 Give (units): 2 201 to 250 Give (units): 4 251 to 300 Give (units): 6 301 to 350 Give (units): 8 Greater than 350 Give (units): 10 Call MD if Blood Glucose > : 350 oxybutynin chloride 5 mg tablet 1 tab PO DAILY sertraline 50 mg tablet 1 tab PO DAILY dorzolamide 2 % drops 1 drp ophthalmic (eye) BID brimonidine-timolol [Combigan] 0.2-0.5 % drops 1 drp ophthalmic (eye) DAILY acetaminophen [Mapap (acetaminophen)] 500 mg capsule 500 mg PO Q6H PRN (Reason: Pain) cholecalciferol (vitamin D3) 125 mcg (5,000 unit) capsule 125 mcg PO DAILY metoprolol tartrate 25 mg tablet 12.5 mg PO BID Qty: 0 0RF aspirin 81 mg Tablet,Delayed Release (Dr/Ec) 81 mg PO DAILY Qty: 0 0RF erythromycin 5 mg/gram (0.5 %) Ointment 1 cm ophthalmic (eye) BID Qty: 0 0RF Print Language: Albanian
--- NOTE | 2023-12-01 17:42 | PC.NURSE ---
per request of provider, diet was ordered, this nurse looked at pts last admit and entered same DM diet/calorie requirement.
--- NOTE | 2023-12-01 17:43 | PC.NURSE ---
med req pharmacy was called and tech will do med req for patient since he was just discharged.
[2023-12-01 18:00] VITALS: BP 125/82; PULSE 74; RESP 13; TEMP 37.2; O2SAT 92
--- NOTE | 2023-12-01 18:03 | PHA.MEDREC ---
Pharmacy Consult ? Medication Reconciliation Pharmacy has completed the medication reconciliation. Med rec was done 11/27/2023 for patient, used discharge packet from 12/01/23
[2023-12-01 18:37] LABS: Glucose, Whole Blood 132 mg/dL (60-115)
--- NOTE | 2023-12-01 19:04 | MHC.CM.ED ---
Addendum entered by Carlee Moyer 12/01/23 19:32: Called [facility], as they service the [facility]. Office is closed. Message left with intake to call back regarding a patient needing services/intake. No identifying patient information left on message. CM contact information left. Will reach out to agency tomorrow if no return call. Patient contact will wbe HCP/daughter Shahla Kruse ([phone]). Original Note: Pt was discharged from [facility] today to [facility]. Pt was hospitalized from 11/26-11/30 with NSTEMI. Pt has advanced dementi, IDDM, CVA's HTN and a-fib. is ill and unable to care for him at this time.She is staying with her daugher in [place]. Family was upset with the staffing ratio, and their perceived lack of safety at the facility. Family wanted a bed alarm and side rails. [facility] told them they don't have them. Family had patient return to [facility] ED. Pt normally lives with his . Uses a walker w assist at baseline. and has a transport chair. Pt eats a soft diet with full liquids and needs to be fed, per Daughter.Has a MEDICAL REIMBURSEMENT MANAGER through [facility] M-F 1:30 pm. No other services. PCP is Geoff Seymour. HCP was invoked. HCP/daughter Shahla Esquivelcarrie ([phone]). HCP is concerned that all the facilities will be the same and is unsure if she wants him to go to another facility. Daughter wants services arranged through [facility], as she plans on taking her father home, either after STR or if she takes him home tomorrow. Daughter does expect that both her parents will need to live with her. CM did speak with her regarding future planning for someone with dementia, including assisted living facilities. CM explained that those services might take some time and STR would enable her to arrange for more help at home. HCP is upset that her father will remain in the ED. CM explained that patient was just discharged today and has no medical necessity to be re-admitted.. Will obtain a hospital bed to make patient more comfortable. Daughter/HCP very concerned about her father's medications. Explained that a med rec will be completed and then he will get his medications. CM will try to contact [facility], however may need to reach out tomorrow during office hours. Daughter does not want to cancel services with [facility] at this time. Daughter is agreeable to local referrals, but wants sign rails and increased care for her father. CM did explain that CM can ask about side rails and explained that there is not 1:1 care in any facility. Local referrals are placed. CM will follow for discharge planning.
[2023-12-01 20:13] VITALS: BP 139/66; PULSE 83; RESP 16; TEMP 36.3; O2SAT 94
[2023-12-01 20:20] LABS: Glucose, Whole Blood 210 mg/dL (60-115)
[2023-12-01] MEDS: Insulin Glargine,Hum.rec.anlog 100 UNIT/ML 10 ML VIAL 11 UNIT SUBCUT (20:43)
[2023-12-01] MEDS: Erythromycin Base 0.5% Oph Oin 1 GM TUBE 1 CM EYE-BOTH (20:43)
[2023-12-01] MEDS: Metoprolol Tartrate 12.5 MG HALFTAB PO (20:44)
[2023-12-01 22:39] VITALS: BP 137/67; PULSE 70; RESP 16; TEMP 36.8; O2SAT 93
[2023-12-02] VITALS (7 sets, daily range): BP systolic 116–146; BP diastolic 61–82; PULSE 60–88; RESP 14–17; TEMP 36.3–36.8; O2SAT 92–97
[2023-12-02 08:01] LABS: Glucose, Whole Blood 217 mg/dL (60-115)
[2023-12-02] MEDS: Clopidogrel Bisulfate 75 MG TABLET PO (09:14)
[2023-12-02] MEDS: amLODIPine Besylate 5 MG TABLET PO (09:14)
[2023-12-02] MEDS: Metoprolol Tartrate 12.5 MG HALFTAB PO ×2 (09:15→20:48)
[2023-12-02] MEDS: Atorvastatin Calcium 40 MG TABLET PO (09:16)
[2023-12-02] MEDS: oxyBUTYnin chloride ER 5 MG TAB.ER.24 PO (09:16)
[2023-12-02] MEDS: Aspirin Enteric Coated 81 MG TABLET.DR PO (09:16)
[2023-12-02] MEDS: Insulin Lispro 100 UNIT/ML 3 ML VIAL SUBCUT ×3 (09:17→16:39)
[2023-12-02] MEDS: Erythromycin Base 0.5% Oph Oin 1 GM TUBE 1 CM EYE-BOTH ×2 (09:17→20:50)
[2023-12-02] MEDS: Insulin Glargine,Hum.rec.anlog 100 UNIT/ML 10 ML VIAL 8 UNIT SUBCUT (09:17)
[2023-12-02] MEDS: Sertraline HCL 50 MG TABLET PO (09:17)
[2023-12-02] MEDS: Finasteride 5 MG TABLET PO (09:21)
--- NOTE | 2023-12-02 10:08 | MHC.CM.ED ---
Patient remains in ER. The following facilities are able to offer a bed at this time: [facility], [facility], [facility], [facility], and [facility]. No facilities in [facility] are able to offer bed alarms. They are considered restraints. Some of the facilities are able to offer 1/4 rails but only after assessed by their rehab department and only to help with assistance getting out of bed, not as restraints. Met with patient's daughter, Cristiane at bedside. Sugar joined the conversation via speakerphone. Facility options were discussed. Suagr is going to do some research and get back to case management. [facility] offered for family to tour facility. Copy of HCP will be emailed to t/w. Continue to monitor for d/c needs.
[2023-12-02 11:47] LABS: Glucose, Whole Blood 238 mg/dL (60-115)
--- NOTE | 2023-12-02 13:05 | MHC.EDTECH ---
Patients daughter is at bedside. Pt was fed by daughter and ate about 20% of lunch. Patient was repositioned and cleaned, [place] catheter was applied to patient, tolerated well.
[2023-12-02 16:33] LABS: Glucose, Whole Blood 174 mg/dL (60-115)
--- NOTE | 2023-12-02 19:26 | MHC.CM.ED ---
CM called [facility] with referral. CM was told to have the daughter call her care aide at [facility] and ask to to make the referral and have them transfer his care to them. CM called HCP/daughter Shahla([phone]) and left message to return call with regards to [facility] services.
[2023-12-02 20:01] LABS: Glucose, Whole Blood 138 mg/dL (60-115)
[2023-12-02] MEDS: Insulin Glargine,Hum.rec.anlog 100 UNIT/ML 10 ML VIAL 11 UNIT SUBCUT (20:13)
[2023-12-02] MEDS: Dorzolamide HCl 2 % Ophth Sol 10 ML DRPBTL 1 DROP EYE-BOTH (20:13)
--- NOTE | 2023-12-02 23:53 | PC.NURSE ---
Assumed care of patient at 1900. Patient alert to self, mainly Syrian speaking. Patient repositioned, vss. Bedtime medication administered per aug, pills whole in applesauce. Callbell within reach, warm blanket provided.
[2023-12-03 06:18] VITALS: BP 160/76; PULSE 60; RESP 16; TEMP 36.4; O2SAT 95
--- NOTE | 2023-12-03 06:48 | PC.NURSE ---
Patient Ax1, vitals stable, patient sleeping all night, rouses to name, cooperative with care, no apparent distress, relaxed position and breathing.
[2023-12-03 08:56] LABS: Glucose, Whole Blood 120 mg/dL (60-115)
[2023-12-03 09:26] VITALS: BP 126/78
[2023-12-03] MEDS: Insulin Glargine,Hum.rec.anlog 100 UNIT/ML 10 ML VIAL 8 UNIT SUBCUT (09:26)
[2023-12-03] MEDS: Aspirin Enteric Coated 81 MG TABLET.DR PO (09:26)
[2023-12-03] MEDS: Sertraline HCL 50 MG TABLET PO (09:26)
[2023-12-03] MEDS: Finasteride 5 MG TABLET PO (09:26)
[2023-12-03] MEDS: Atorvastatin Calcium 40 MG TABLET PO (09:26)
[2023-12-03] MEDS: amLODIPine Besylate 5 MG TABLET PO (09:26)
[2023-12-03] MEDS: oxyBUTYnin chloride ER 5 MG TAB.ER.24 PO (09:26)
[2023-12-03] MEDS: Metoprolol Tartrate 12.5 MG HALFTAB PO ×2 (09:27→20:48)
[2023-12-03] MEDS: Erythromycin Base 0.5% Oph Oin 1 GM TUBE 1 CM EYE-BOTH ×2 (10:00→20:48)
[2023-12-03] MEDS: Dorzolamide HCl 2 % Ophth Sol 10 ML DRPBTL 1 DROP EYE-BOTH ×2 (10:00→20:48)
[2023-12-03] MEDS: Clopidogrel Bisulfate 75 MG TABLET PO (10:30)
[2023-12-03 12:00] LABS: Glucose, Whole Blood 182 mg/dL (60-115)
[2023-12-03] MEDS: Insulin Lispro 100 UNIT/ML 3 ML VIAL SUBCUT ×2 (12:00→16:35)
[2023-12-03 14:00] VITALS: BP 125/57; PULSE 66; RESP 16; TEMP 36.6; O2SAT 95
[2023-12-03 16:34] LABS: Glucose, Whole Blood 172 mg/dL (60-115)
--- NOTE | 2023-12-03 19:36 | PC.NURSE ---
Addendum entered by Makenzie Guerrier RN 12/03/23 20:58: Patient is primarily Vietnamese speaking. Paralegal Legal Secretary used at bedside. Pt is A&Ox2-3 to self/ and place. 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 Per handoff report/ MD note, patient is to d/c home with his [facility]'s [facility] [place] [facility] Patient reoriented to plan and states he remembers now, states [place] . VSS. Patient is med compliant and given OJ per request, tolerated both without issue. Breathing is even and unlabored without distress on RA. +pp/cms, -edema. Patient denies pain. Incontinent with [place] catheter in place and patent of odorless cyu. Patient repositioned. HS POC 112, given scheduled lantus. Bed alarm on and safety measures in place. Call carroll within reach and educated on use. Original Note: Assumed care of patient at 19:00. Patient remains in ED overflow. Pharmacy notified of scheduled erythromycin and metoprolol tartrate not stocked in pyxis, entry writer requested to be delivered.
[2023-12-03 19:53] VITALS: BP 140/72; PULSE 68; RESP 17; TEMP 36.6; O2SAT 97
[2023-12-03 20:14] LABS: Glucose, Whole Blood 112 mg/dL (60-115)
[2023-12-03] MEDS: Insulin Glargine,Hum.rec.anlog 100 UNIT/ML 10 ML VIAL 11 UNIT SUBCUT (20:49)
[2023-12-04 04:52] VITALS: BP 144/77; PULSE 79; RESP 16; TEMP 36.5; O2SAT 95
[2023-12-04 07:30] LABS: Glucose, Whole Blood 97 mg/dL (60-115)
[2023-12-04 09:19] VITALS: BP 144/77
[2023-12-04] MEDS: amLODIPine Besylate 5 MG TABLET PO (09:19)
[2023-12-04] MEDS: Clopidogrel Bisulfate 75 MG TABLET PO (09:19)
[2023-12-04] MEDS: oxyBUTYnin chloride ER 5 MG TAB.ER.24 PO (09:20)
[2023-12-04] MEDS: Dorzolamide HCl 2 % Ophth Sol 10 ML DRPBTL 1 DROP EYE-BOTH (09:20)
[2023-12-04] MEDS: Aspirin Enteric Coated 81 MG TABLET.DR PO (09:20)
[2023-12-04] MEDS: Erythromycin Base 0.5% Oph Oin 1 GM TUBE 1 CM EYE-BOTH (09:20)
[2023-12-04] MEDS: Atorvastatin Calcium 40 MG TABLET PO (09:20)
[2023-12-04] MEDS: Metoprolol Tartrate 12.5 MG HALFTAB PO (09:20)
[2023-12-04] MEDS: Finasteride 5 MG TABLET PO (09:20)
[2023-12-04] MEDS: Insulin Glargine,Hum.rec.anlog 100 UNIT/ML 10 ML VIAL 8 UNIT SUBCUT (09:21)
[2023-12-04] MEDS: Sertraline HCL 50 MG TABLET PO (09:22)
[2023-12-04 12:07] LABS: Glucose, Whole Blood 192 mg/dL (60-115)
[2023-12-04] MEDS: Insulin Lispro 100 UNIT/ML 3 ML VIAL SUBCUT (12:08)
== END 2023-12-04 13:08 | disposition home or self-care (01) ==
PROVIDERS: Emergency Provider Internal Medicine; PCP Internal Medicine
DX: F03.90 Unspecified dementia, unspecified severity, without behavioral disturbance, psychotic disturbance, mood disturbance, and anxiety (principal); R41.82 Altered mental status, unspecified; I10 Essential (primary) hypertension; I48.91 Unspecified atrial fibrillation; E11.9 Type 2 diabetes mellitus without complications; Z86.73 Personal history of transient ischemic attack (TIA), and cerebral infarction without residual deficits; Z79.01 Long term (current) use of anticoagulants; Z79.4 Long term (current) use of insulin; Z79.899 Other long term (current) drug therapy
CPT/HCPCS: 82947; 99285